=== PATIENT | male | born 1940 | race Caucasian/White ===

== ENCOUNTER 2020-07-19 08:06 | Emergency (ER) | payer OTHER, MEDICARE, SELFPAY ==
--- NOTE | ~2020-07-19 | XR_ITS ---
EXAMINATION: XR chest 2V EXAM DATE: 07/19/2020 09:08 INDICATION: Cough and runny nose. TECHNIQUE: Frontal and lateral projections of the chest obtained and reviewed. There is no prior diane dy for comparison. FINDINGS: Sternotomy wires are present without findings to suggest sternal dehiscence. Moderate hype rinflation. The lungs are clear. There are no pleural effusions. The cardiomediastinal silhouette i s within normal limits. There is no pneumothorax suspected. Mild to moderate upper thoracic levosco liosis, lower thoracic dextroscoliosis. IMPRESSION: 1. No acute cardiopulmonary findings. 2. Hyperinflation. Reviewed, dictated and finalized at location B. EDUCATION TEACHER
[2020-07-19 08:27] VITALS: BP 133/87; PULSE 84; RESP 18; TEMP 36.2; O2SAT 97
--- NOTE | 2020-07-19 09:42 | ED.URI ---
HPI - URI/Sore Throat General Chief Complaint: Upper Respiratory Infection Stated Complaint: Cough,Congestion Time Seen by Provider: 07/19/20 08:30 Source: patient and RN notes reviewed Mode of arrival: ambulatory Limitations: no limitations History of Present Illness HPI Narrative: Patient presents today with a 4-day history of rhinorrhea, nasal congestion and sinus pressure, productive cough that is worse at night. Denies fever, chills, body aches, shortness of breath, loss of taste or smell. 3 other members of his household are also ill. He is a former smoker and quit many years ago. Denies any history of asthma or COPD. He has been taking daytime and nighttime medications without relief. MD elicited complaint: cough, rhinorrhea and nasal congestion Related Data Home Medications Medication Instructions Recorded Confirmed atorvastatin 05/10/19 potassium chloride meq 05/10/19 aspirin PO 07/19/20 Allergies Allergy/AdvReac Type Severity Reaction Status Date / Time amiodarone Allergy Mild Rash Verified 05/10/19 17:59 Review of Systems Review of Systems: Narrative: CONSTITUTIONAL: Denies body aches, fever, chills, or sweats. EYES: Denies visual changes, redness, or discharge. ENT: Denies sore throat, or otalgia.+ Rhinorrhea, nasal congestion CARDIOVASCULAR: Denies chest pain, palpitations, or edema. RESPIRATORY: Denies dyspnea. + Productive cough GASTROINTESTINAL: Denies abdominal pain, nausea, vomiting, or diarrhea. GENITOURINARY: Denies dysuria or hematuria. SKIN: Denies rash, itching, or wounds. MUSCULOSKELETAL: Denies back pain, joint pain, or myalgia. NEUROLOGIC: Denies headache, numbness, tingling, or weakness. PSYCH: Denies depression or anxiety. [facility] Past Medical History Medical History Arthritis Atrial fibrillation and flutter Cataracts, bilateral GERD (gastroesophageal reflux disease) HTN (hypertension) Hypercholesterolemia Surgical History Surgical History H/O mitral valve replacement History of appendectomy Hx of tonsillectomy Family History Family History Mother Patient's mother is , Onset Age: 72 Family history unknown, Onset Age: 72 Father Patient's father is , Onset Age: 82 Family history unknown, Onset Age: 73 Social History Social History Smoking status: Never smoker Second hand tobacco smoke exposure: No Smoking end date: 05/24/1966 Alcohol intake: never Gender identity (if verbalized by the patient): Male Comments At time of signature, I have reviewed and agree with nursing past medical, surgical, social and family history unless otherwise noted. Please see nursing chart for further information. There is no relevant family history pertinent to the presenting complaint Exam Narrative: Exam Narrative: GENERAL: Well-appearing, well-nourished, and in no acute distress. Thin HEAD: Normocephalic, atraumatic. EYES: EOMI. No redness or drainage. Conjunctivae normal. ENT: Mucous membranes pink and moist. Nares congested. No rhinorrhea. TMs normal bilaterally. Throat normal. Uvula midline. NECK: Normal AROM. Supple. No lymphadenopathy. CHEST: No respiratory distress. Clear to auscultation. HEART: Regular rate and rhythm. No murmur appreciated. Normal peripheral pulses. EXTREMITIES: Normal range of motion. No edema. SKIN: Warm, dry, no rash. Capillary refill normal. Normal skin turgor. NEURO: No focal deficits. Alert and oriented x3. Gait steady. PSYCH: Normal affect. No signs of depression or anxiety. Course Vital Signs Vital signs: Vital Signs Temperature 97.1 F L 07/19/20 08:27 Pulse Rate 84 07/19/20 08:27 Respiratory Rate 18 07/19/20 08:27 Blood Pressure 133/8
== END 2020-07-19 09:58 | disposition home or self-care (01) ==
PROVIDERS: Emergency Provider Nurse Practitioner
DX: U07.1 COVID-19 (principal); M19.90 Unspecified osteoarthritis, unspecified site; I48.91 Unspecified atrial fibrillation; K21.9 Gastro-esophageal reflux disease without esophagitis; I10 Essential (primary) hypertension; E78.00 Pure hypercholesterolemia, unspecified; H26.9 Unspecified cataract; Z95.2 Presence of prosthetic heart valve; Z87.891 Personal history of nicotine dependence
CPT/HCPCS: 71046; 87426; 99213; C9803; G0463

== ENCOUNTER 2020-11-11 04:39 | Emergency (ER) | payer OTHER, MEDICARE, SELFPAY ==
[2020-11-11 04:43] VITALS: BP 144/96; PULSE 96; RESP 16; TEMP 37.1; O2SAT 98
--- NOTE | 2020-11-11 04:56 | ED.UPPEXIN ---
HPI - Extremity Injury (Upper) General Chief Complaint: Extremity Injury, Upper Stated Complaint: left arm injury Time Seen by Provider: 11/11/20 04:53 History of Present Illness HPI narrative: Patient is an 80-year-old male who presents ER with left upper extremity bruising. Patient reports few days ago he was turning over a box of laminate dia with his left hand when he felt a snap in his upper arm. He did not think much of it because he is not having pain but then developed significant bruising over his biceps. He does not think he has any loss of strength. No numbness or tingling. He is not on any blood thinners outside of an aspirin. Related Data Home Medications Medication Instructions Recorded Confirmed atorvastatin 05/10/19 potassium chloride meq 05/10/19 aspirin PO 07/19/20 Allergies Allergy/AdvReac Type Severity Reaction Status Date / Time amiodarone Allergy Mild Rash Verified 11/11/20 04:40 Review of Systems Musculoskeletal: Musculoskeletal: Denies arthralgias, Denies joint swelling and Denies muscle cramps Comments: Bruising over biceps Neurologic: Denies focal weakness and Denies numbness PMFSH Past Medical History Medical History Arthritis Atrial fibrillation and flutter Cataracts, bilateral GERD (gastroesophageal reflux disease) HTN (hypertension) Hypercholesterolemia Surgical History Surgical History H/O mitral valve replacement History of appendectomy Hx of tonsillectomy Family History Family History Mother Patient's mother is , Onset Age: 72 Family history unknown, Onset Age: 72 Father Patient's father is , Onset Age: 82 Family history unknown, Onset Age: 73 Social History Social History Smoking status: Never smoker Second hand tobacco smoke exposure: No Smoking end date: 05/24/1966 Alcohol intake: never Gender identity (if verbalized by the patient): Male Exam Narrative: Exam Narrative: GENERAL: Well-appearing, well-nourished, and in no acute distress. HEAD: Normocephalic, atraumatic. EXTREMITIES: No tenderness to the left bicep. There is significant contusion over the bicep moving proximally towards her shoulder. Does not cross the elbow. Full range of motion of the shoulder/elbow/wrist and the left upper extremity. SKIN: Warm, dry, no rash. NEURO: Alert and oriented x3. PSYCH: Normal mood and affect. Course Course Emergency Course: Suspect rupture of the long head of the biceps muscle. Will refer to orthopedic surgery given the fact that he still works in maintenance at [employer]. Seems to be particularly active for man his age. Vital Signs Vital signs: Vital Signs Temperature 98.7 F 11/11/20 04:43 Pulse Rate 96 11/11/20 04:43 Respiratory Rate 16 11/11/20 04:43 Blood Pressure 144/96 H 11/11/20 04:43 Pulse Oximetry 98 11/11/20 04:43 Temperature 98.7 F 11/11/20 04:43 Pulse Rate 96 11/11/20 04:43 Respiratory Rate 16 11/11/20 04:43 Blood Pressure 144/96 H 11/11/20 04:43 Pulse Oximetry 98 11/11/20 04:43 Discharge Plan Discharge Clinical Impression: Rupture long head biceps tendon Patient Disposition: Home, Self-Care Condition: Stable Instructions: Repairs of the Biceps and Triceps Tendons (DC), Tendon Rupture (ED) Additional Instructions: You have been referred to orthopedic surgery. Call to schedule an appointment. They will discuss your treatment options. Likely they will do conservative treatment but there are options for surgical repair. Do not lift use anything over 5 pounds with the left upper extremity. Prescriptions: No Action potassium chloride 10 mEq capsule, extended release RF: 0 atorvastatin
[2020-11-11 05:31] VITALS: BP 137/71; PULSE 90; RESP 18; O2SAT 99
== END 2020-11-11 05:33 | disposition home or self-care (01) ==
PROVIDERS: Emergency Provider Emergency Medicine
DX: S46.112A Strain of muscle, fascia and tendon of long head of biceps, left arm, initial encounter (principal); I48.91 Unspecified atrial fibrillation; I48.92 Unspecified atrial flutter; K21.9 Gastro-esophageal reflux disease without esophagitis; I10 Essential (primary) hypertension; E78.00 Pure hypercholesterolemia, unspecified; M19.90 Unspecified osteoarthritis, unspecified site; Z95.2 Presence of prosthetic heart valve; Z79.82 Long term (current) use of aspirin; X50.9XXA Other and unspecified overexertion or strenuous movements or postures, initial encounter
CPT/HCPCS: 99282

== ENCOUNTER 2020-12-11 16:03 | Emergency (ER) | payer OTHER, MEDICARE, SELFPAY ==
[2020-12-11 16:39] VITALS: BP 93/61; PULSE 101; RESP 18; TEMP 37.1; O2SAT 98
--- NOTE | 2020-12-11 16:43 | ED.URI ---
HPI - URI/Sore Throat General Chief Complaint: Upper Respiratory Infection Stated Complaint: sinus infection History of Present Illness HPI Narrative: This is a 80-year-old male that comes in complaining of a sinus infection patient states that he has been positive this year for Covid. Patient states that he is also received his vaccination. Patient says that he has nasal drainage and a cough. Patient states that his daughter last week tested positive for Covid. And his grandson tested positive Wednesday. Related Data Home Medications Medication Instructions Recorded Confirmed atorvastatin 05/10/19 potassium chloride meq 05/10/19 aspirin PO 07/19/20 meloxicam 12/11/20 Allergies Allergy/AdvReac Type Severity Reaction Status Date / Time amiodarone Allergy Mild Rash Verified 11/11/20 04:40 Review of Systems Review of Systems: Narrative: CONSTITUTIONAL: Denies fever, chills, or sweats. EYES: Denies visual changes, redness, or discharge. ENT: Reports he has had for rhinorrhea, congestion, sore throat, or otalgia. CARDIOVASCULAR:Denies chest pain, palpitations, or edema. RESPIRATORY: Reports cough or dyspnea. GASTROINTESTINAL: Denies abdominal pain, nausea, vomiting, or diarrhea. GENITOURINARY: Denies dysuria or hematuria. SKIN:[Denies rash or itching. MUSCULOSKELETAL:Denies back pain, joint pain, or myalgia. NEUROLOGIC: Denies headache, numbness, or weakness. PSYCHIATRIC:Denies anxiety or depression PMFSH Past Medical History Medical History Arthritis Atrial fibrillation and flutter Cataracts, bilateral GERD (gastroesophageal reflux disease) HTN (hypertension) Hypercholesterolemia Surgical History Surgical History H/O mitral valve replacement History of appendectomy Hx of tonsillectomy Family History Family History Mother Patient's mother is , Onset Age: 72 Family history unknown, Onset Age: 72 Father Patient's father is , Onset Age: 82 Family history unknown, Onset Age: 73 Social History Social History Smoking status: Never smoker Second hand tobacco smoke exposure: No Smoking end date: 05/24/1966 Alcohol intake: never Gender identity (if verbalized by the patient): Male Comments At time as signature, I have reviewed and agree with nursing past medical, social, surgical and family history. Please see nursing chart for further information. There is no relevant family history pertinent to the presenting complaint. Exam Narrative: Exam Narrative: GENERAL:Well-appearing, well-nourished, and in no acute distress. HEAD:Normocephalic, atraumatic. EYES: PERRLA and EOMI. ENT: Nares clear, no rhinorrhea Mucous membranes moist. Pharyngeal erythema tm clear fluid bulgin NECK: Supple. CHEST: Clear to auscultation. No respiratory distress. HEART: Regular rate and rhythm. No murmur heard. Normal peripheral pulses. ABDOMEN: Soft, nontender, nondistended, normal active bowel sounds. EXTREMITIES: Normal range of motion. No edema. SKIN: Warm, dry, no rash. NEURO: No focal deficits. Alert and oriented x 3 Course FIRST GRADE TEACHER/PA Physician Supervision Covid-19 Positive Vital Signs Vital signs: Vital Signs Temperature 98.7 F 12/11/20 16:39 Pulse Rate 101 H 12/11/20 16:39 Respiratory Rate 18 12/11/20 16:39 Blood Pressure 93/61 L 12/11/20 16:39 Pulse Oximetry 98 12/11/20 16:39 Temperature 98.7 F 12/11/20 16:39 Pulse Rate 101 H 12/11/20 16:39 Respiratory Rate 18 12/11/20 16:39 Blood Pressure 93/61 L 12/11/20 16:39 Pulse Oximetry 98 12/11/20 16:39 MDM - URI/Sore Throat Differential Diagnosis Differential diagnosis: Likely upper respiratory infection, otitis media, sinusitis, viral infection and other (COVID 19)
== END 2020-12-11 17:25 | disposition home or self-care (01) ==
PROVIDERS: Emergency Provider Nurse Practitioner Family; PCP Nurse Practitioner
DX: U07.1 COVID-19 (principal); I95.0 Idiopathic hypotension; M19.90 Unspecified osteoarthritis, unspecified site; I48.91 Unspecified atrial fibrillation; H26.9 Unspecified cataract; K21.9 Gastro-esophageal reflux disease without esophagitis; I10 Essential (primary) hypertension; E78.00 Pure hypercholesterolemia, unspecified; Z95.2 Presence of prosthetic heart valve; Z86.16 Personal history of COVID-19
CPT/HCPCS: 87426; 99213; C9803; G0463

== ENCOUNTER 2020-12-16 11:40 | Observation (INO) | payer OTHER, MEDICARE, SELFPAY ==
[2020-12-16] VITALS (36 sets, daily range): BP systolic 104–150; BP diastolic 62–104; PULSE 76–106; RESP 18–22; TEMP 36.7; O2SAT 92–99; BMI 17.2
--- NOTE | ~2020-12-16 | CT_ITS ---
EXAMINATION: CTA chest PE protocol DATE: 12/16/2020 16:25 INDICATION: Shortness of breath. COVID positive. Positive d-dimer. TECHNIQUE: Computed tomography (CT) pulmonary angiogram of the chest was performed with 100 mL Omnipa que-350 intravenous contrast. Additional 3D reconstructions utilizing coronal maximum intensity proje ction (MIP) were performed. The dose-length product was 153.97 mGy-cm. COMPARISON: None FINDINGS: Good contrast opacification of the pulmonary arteries. There is mild streak artifact from dense contr ast in the superior vena cava and right atrium. Moderate scattered respiratory motion artifact which mildly decreases sensitivity in the basilar segmental pulmonary arteries and more prominently in the smaller subsegmental pulmonary arteries with assessment essentially nondiagnostic in the basilar aspe ct of the lower lobes. No pulmonary embolism identified. There are peripheral and lower lung predomin ant patchy groundglass opacities in both lungs most consistent with COVID pneumonia no pleural effusi on or pneumothorax. Mild emphysema suggested although assessment of fine pulmonary parenchymal detail is limited by the respiratory motion. Mild cardiomegaly. Atherosclerotic coronary artery calcificati ons. Postoperative change of prior median sternotomy and mitral valve repair. Thoracic aorta is trupti l in caliber with no dissection. No pathologically enlarged thoracic mild to moderate lower thoracic dextroscoliosis with moderate spondylosis. There is also grade 1 anterolisthesis C6 on C7 and C7 on T 1 also with moderate spondylosis. lymphadenopathy. IMPRESSION: 1. No definitive pulmonary embolism with sensitivity decreased by respiratory motion in the basilar s egmental pulmonary arteries and more significantly in the smaller subsegmental pulmonary arteries at the lung bases. 2. Patchy bilateral peripheral and lower lung predominant groundglass opacities most consistent with COVID pneumonia. 3. Cardiomegaly. Reviewed, dictated and finalized at location A. IMPRESSION: 1. No definitive pulmonary embolism with sensitivity decreased by respiratory m otion in the basilar segmental pulmonary arteries and more significantly in the smaller subsegmental pulmonary arteries at the lung bases. 2. Patchy bilateral peripheral and lower lung predominant groundglass opacities most consistent with COVID pneumonia. 3. Cardiomegaly.
--- NOTE | ~2020-12-16 | XR_ITS ---
EXAMINATION: XR chest 1V portable EXAM DATE: 12/16/2020 13:48 INDICATION: sob, covid + . TECHNIQUE: Portable AP frontal chest x-ray was obtained. Comparison is made to prior examination from 07/19/2020. FINDINGS: Small amount of ill-defined right mid and left lower lung zone airspace disease. No pneumot horax or pleural effusion. Some chronic hyperinflation. Cardiomediastinal silhouette is normal. Marte otomy wires are present without findings to suggest sternal dehiscence. The bones are osteopenic. Th ere are bony degenerative changes. IMPRESSION: Small amount of right mid, left lower lung zone pneumonia. Reviewed, dictated and finalized at location B.
--- NOTE | 2020-12-16 11:57 | ECG_ITS ---
Measurements Intervals [place] Rate: 110 P: IN: 0 QRS: -48 QRSD: 102 T: 61 QT: 351 QTc: 477 Interpretive Statements SINUS TACHYCARDIA INCOMPLETE RIGHT BUNDLE BRANCH BLOCK DELAYED PRECORDIAL R/S TRANSITION ABNORMAL ECG Electronically Signed On 12-16-2020 12:51:29 CDT by Gopi Neal D.O.
[2020-12-16 14:54] LABS: Basophils Percent Auto 0.1 % (0.2-1.2); Hematocrit 39.2 % (42.0-52.0); Hemoglobin 13.9 g/dL (14.0-18.0); Immature Granulocyte Absolute 0.06 K/mm3 (0.00-0.031); Immature Granulocyte Percent A 0.9 % (0-0.5); Lymphocytes Absolute Auto 0.57 K/mm3 (0.9-3.2); Lymphocytes Percent Auto 8.3 % (18.3-44.2); Mean Corpuscular HGB Conc 35.5 g/dl (32-36); Mean Corpuscular Hemoglobin 30.6 pg (26-34); Mean Corpuscular Volume 86.3 fl (80-100); Mean Platelet Volume 9.3 fl (7.4-10.4); Monocytes Absolute Auto 0.9 K/mm3 (0.1-0.6); Monocytes Percent Auto 12.8 % (2.6-8.5); Neutrophils Absolute Auto 5.3 K/mm3 (1.3-6.7); Neutrophils Percent Auto 77.9 % (45.5-73.1); Platelet Count Result 266 k/mm3 (150-375); Red Blood Count 4.54 M/mm3 (4.6-6.20); Red Cell Distribution Width 12.1 % (11.5-14.5); White Blood Count 6.9 K/mm3 (4.5-10.0)
[2020-12-16 15:12] LABS: NT Pro B Type Natriuretic Pept 774 pg/mL (5-100)
[2020-12-16 15:14] LABS: Alanine Aminotransferase 32 U/L (4-50); Albumin Level 4.3 g/dL (3.5-5.1); Alkaline Phosphatase 122 U/L (38-126); Anion Gap 14 mmol/L (8-16); Aspartate Amino Transferase 46 U/L (17-59); Bilirubin,Total 1.4 mg/dL (0.2-1.3); Blood Urea Nitrogen 34 mg/dL (9-20); Calcium 9.3 mg/dL (8.4-10.2); Carbon Dioxide 26 mmol/L (22-30); Chloride 89 mmol/L (98-107); Estimated CRCL calculation 39 ml/min; Estimated Glomerular Filt Rate > 60; Glucose 113 mg/dL (65-110); Lactate Dehydrogenase 917 U/L (313-618); Potassium 3.1 mmol/L (3.4-5.0); Sodium 129 mmol/L (137-145)
--- NOTE | 2020-12-16 15:25 | ED.SOB ---
HPI - SOB/Dyspnea General Chief Complaint: Shortness of Breath/Dyspnea <Dena Flores PA-C - Last Filed: 12/16/20 17:36> Stated Complaint: short of breath <Dena Flores PA-C - Last Filed: 12/16/20 17:36> Time Seen by Provider: 12/16/20 13:00 <Dena Flores PA-C - Last Filed: 12/16/20 17:36> Source: patient <SAQIB Slater Last Filed: 12/16/20 17:36> Mode of arrival: ambulatory <SAQIB Slater Last Filed: 12/16/20 17:36> Limitations: no limitations <SAQIB Slater Last Filed: 12/16/20 17:36> History of Present Illness HPI Narrative: This is a 80 year old male that presents to the ER for shortness of breath. Reports he was diagnosed with COVID on 12/11. Reports since he has had ongoing shortness of breath with exertion. Also reports cough, congestion. Denies fever, chest pain, or lower extremity edema. <SAQIB Slater Last Filed: 12/16/20 17:36> Related Data Home Medications: Home Medications Medication Instructions Recorded Confirmed atorvastatin 05/10/19 potassium chloride meq 05/10/19 aspirin PO 07/19/20 meloxicam 12/11/20 <Dena Flores PA-C - Last Filed: 12/16/20 17:36> Allergies/Adverse Reactions: Allergies Allergy/AdvReac Type Severity Reaction Status Date / Time amiodarone Allergy Mild Rash Verified 12/16/20 13:08 <SAQIB Slater Last Filed: 12/16/20 17:36> Review of Systems Review of Systems: Narrative: CONSTITUTIONAL: Denies fever ENT: Reports congestion CARDIOVASCULAR: Denies chest pain RESPIRATORY: Reports cough and dyspnea. <SAQIB Slater Last Filed: 12/16/20 17:36> All systems reviewed & are unremarkable except as noted in HPI and below <SAQIB Slater Last Filed: 12/16/20 17:36> PMFSH Past Medical History Medical History: Medical History Arthritis Atrial fibrillation and flutter Cataracts, bilateral GERD (gastroesophageal reflux disease) HTN (hypertension) Hypercholesterolemia <Dena Flores PA-C - Last Filed: 12/16/20 17:36> Surgical History Surgical History: Surgical History H/O mitral valve replacement History of appendectomy Hx of tonsillectomy <Dena Flores PA-C - Last Filed: 12/16/20 17:36> Family History Family History: Family History Mother Patient's mother is , Onset Age: 72 Family history unknown, Onset Age: 72 Father Patient's father is , Onset Age: 82 Family history unknown, Onset Age: 73 <Dena Flores PA-C - Last Filed: 12/16/20 17:36> Social History Social History: Social History Smoking status: Never smoker Second hand tobacco smoke exposure: No Smoking end date: 05/24/1966 Alcohol intake: never Gender identity (if verbalized by the patient): Male <SAQIB Slater Last Filed: 12/16/20 17:36> Exam Narrative: Exam Narrative: GENERAL: Elderly, well-nourished, and in no acute distress. HEAD: Normocephalic, atraumatic. EYES: EOMI. ENT: Nares clear, no rhinorrhea or epistaxis. Mucous membranes moist. Oropharynx without tonsillar hypertrophy exudate or other lesions. Bilateral TMs pearly ramos non-bulging NECK: Supple. No adenopathy or masses. CHEST: Clear to auscultation. No respiratory distress. No wheezes rales or rhonchi HEART: Regular rate and rhythm. No murmur heard. Normal peripheral pulses. ABDOMEN: Soft, nontender, nondistended, normal active bowel sounds. EXTREMITIES: Normal range of motion. No edema. SKIN: Warm, dry, no rash. NEURO: No focal deficits. Alert and oriented x3. 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
[2020-12-16] MEDS: POTASSIUM CHLORIDE 20 MEQ PACKET (FOR LIQUID) 40 MEQ PO (15:39)
[2020-12-16 15:55] LABS: INR 0.9
[2020-12-16 15:58] LABS: D Dimer 1.03 ug/mL (<0.48)
[2020-12-16 16:34] LABS: Procalcitonin 0.1 ng/mL
--- NOTE | 2020-12-16 19:52 | ADMGEN ---
This patient, Antoni Cooley, was admitted to 3 Med Surg Room 301-01. Patient/family oriented to hospital policies and general routines including ID bracelet, bed and alarms, visiting hours, pain management, procedures, bathroom and other care routines, personal items, smoking policy, room service/diet, and visiting hours. Information on how to activate the Rapid Response Team has been discussed. Patient/Family are encouraged to report perceived risks to care and to ask questions if they do not understand what they are told or what they should do.
--- NOTE | 2020-12-16 20:42 | PM.IMHP ---
H&P: HPI History of Present Illness Date/Time: 12/16/20 20:42 Chief Complaint: Shortness of breath Narrative: this is an 80-year-old male with past medical history significant for mitral valve replacement, hypertension, degenerative joint disease, geared, bilateral cataract. Patient was recently diagnosed with COVID-19 back on December 11. Yesterday he went to the urgent care due to worsening shortness of breath mainly with activity he was sent home with Z-Get but decided to come to the emergency room after he noticed no improvement with dry cough muscle aches and pains. He denies any rigors any chills any nausea vomiting or diarrhea or abdominal pain no leg swelling no syncope or near syncope no chest pain no PND no orthopnea. preliminary workup was significant for chest x-ray with infiltrates a CTA was negative for pulmonary embolism ground-glass opacity infiltrates were found bilaterally BMP was significant for a slightly decrease of sodium 129 potassium 3.1 chloride 89. Review of Systems Review of Systems: Narrative: worsening shortness of breath muscle aches and pain Constitutional: Constitutional: Denies chills, Denies fever(s) and Reports malaise Eyes: Eyes: Denies change in vision ENT: Denies dysphagia, Denies nasal congestion, Denies nasal discharge, Denies nasal obstruction, Denies odynophagia and Denies sore throat Cardiovascular: Cardiovascular: Denies chest pain with activity, Denies irregular heart rhythm, Denies radiating jaw, neck or arm pain and Denies palpitations Respiratory: Respiratory: Reports cough and Reports dyspnea Gastrointestinal: Gastrointestinal: Denies abdominal pain, Denies heartburn, Denies diarrhea, Denies nausea and Denies vomiting Genitourinary: Genitourinary: Reports no additional male genitourinary complaints Musculoskeletal: Musculoskeletal: Reports myalgias Integumentary/Breasts: Skin/Breast: Reports system reviewed and no additional complaints, except as docu Neurologic: Reports system reviewed and no additional complaints, except as documented Psychiatric: Psychiatric: Reports no additional psychiatric complaints Endocrine: Endocrine: Reports no additional endocrine complaints Hematologic/Lymphatic: Hematologic/Lymphatic: Reports no additional hematologic/lymphatic complaints Allergic/Immunologic: Allergic/Immunologic: Reports no additional allergic/immunologic complaints PMFSH Past Medical History Medical History (Updated 12/16/20 @ 20:59 by Stevan Arriola MD) Arthritis Atrial fibrillation and flutter Cataracts, bilateral GERD (gastroesophageal reflux disease) HTN (hypertension) Hypercholesterolemia Surgical History Surgical History (Updated 12/16/20 @ 20:59 by Stevan Arriola MD) H/O mitral valve replacement History of appendectomy Hx of tonsillectomy Family History Family History Mother Patient's mother is , Onset Age: 72 Family history unknown, Onset Age: 72 Father Patient's father is , Onset Age: 82 Family history unknown, Onset Age: 73 Social History Social History Smoking status: Never smoker Second hand tobacco smoke exposure: No Smoking end date: 05/24/1966 Alcohol intake: never Substance use: never Gender identity (if verbalized by the patient): Male Spiritual care concerns: No Meds Home Medications and Allergies Home Medications Medication Instructions Recorded Confirmed Type atorvastatin 20 mg PO DAILY 05/10/19 12/16/20 History potassium chloride 20 meq PO DAILY 05/10/19 12/16/20 History hydrochlorothiazide 25 mg tablet 25 mg PO DAILY #90 tablet 05/18/19 12/16/20 Rx nifedipine 30 mg tablet,extended 30 mg PO DAILY #90 tablet 05/18/19 12/16/20 Rx release aspirin 81 mg PO DAILY 07/19/20 12/16/20 History meloxicam 7.5 mg PO DAILY 12/11/20 12/16/20 History Allergi
[2020-12-16] MEDS: POTASSIUM CHLORIDE 20 MEQ TABLET 40 MEQ PO (22:18)
[2020-12-17] VITALS (7 sets, daily range): BP systolic 117–157; BP diastolic 66–91; PULSE 73–91; RESP 18–20; TEMP 36.2–37.1; O2SAT 95–98; BMI 17.2
--- NOTE | 2020-12-17 | ECHO_ITS ---
Patient Info Name: Antoni Cooley Age: 80 years : 1940 Gender: Male Ht: 68 in Wt: 112 lbs BSA: 1.55 m2 HR: 87 bpm BP: 146 / 83 mmHg Heart Rhythm: Sinus Rhythm Exam Date: 12/17/2020 11:17 AM Exam Location: [facility] Patient Status: Outpatient Admit Date: 12/16/2020 Staff Ordering Physician: Cholo Torres Licensed Mental Health Counselor: Jerrica Cabrera RDCS Attending Provider: Sid Miller MD Referring Physician: Brian SANTIAGO; Exam Type: CA echo doppler color flow Study Info Indications - FLUID OVERLOAD Complete two-dimentional, color flow and Doppler transthoracic echocardiogram is performed with agitated saline and with contrast to opacify the left ventricle and to improve the delineation of the left ventricle endocardial borders. Summary 1. Normal left ventricular size with moderate concentric hypertrophy. Overall good left ventricular systolic function with an ejection fraction 60-65%. No segmental wall motion abnormalities. Grade 2 diastolic dysfunction is present. The global longitudinal strain is mildly diminished at-17% suggesting a degree of systolic dysfunction. 2. There is mild tricuspid valve regurgitation. 3. There is mild to moderate aortic valve regurgitation. 4. Moderately calcified aortic valve with no significant stenosis. 5. Severe mitral annular calcification versus mitral valve replacement with prominent annulus. No significant mitral stenosis or regurgitation. 6. Mild pulmonary hypertension, estimated pulmonary arterial systolic pressure is 35 mmHg. 7. Normal sinus rhythm. Left Ventricle Left ventricular chamber dimension is normal. Left ventricular systolic function is normal, estimated at 60-65%. There is moderately increased left ventricular wall thickness. Left ventricular septal wall motion is normal. The left ventricular diastolic function is grade II diastolic dysfunction. E/e' Empty is mildly elevated. Global longitudinal strain is mildly elevated at 17 %. Right Ventricle Right ventricular chamber dimension is normal. Right ventricular systolic function is normal. Left Atria Left atrial chamber dimension is moderately enlarged. Right Atria Right atrial chamber dimension is normal. Aortic Valve The aortic valve is trileaflet. There is no aortic valve sclerosis. There is no aortic valve stenosis. There is mild to moderate aortic valve regurgitation. There is moderate aortic valve calcification. Pulmonic Valve The pulmonic valve is normal. There is no pulmonic valve stenosis. There is trace pulmonic regurgitation. Mitral Valve The mitral valve has calcified annulus. There is no mitral valve stenosis. There is no mitral valve regurgitation. There is no mitral valve calcification. The mitral valve annulus is severely calcified. Tricuspid Valve The tricuspid valve leaflets are normal. There is no significant tricuspid valve stenosis. There is mild tricuspid valve regurgitation. Mild pulmonary hypertension, estimated pulmonary arterial systolic pressure is 35 mmHg. Pericardium/Pleural The pericardium appears normal. There is no pericardial effusion. Inferior Vena Cava Normal inferior vena cava with >50% collapse upon inspiration consistent with Empty right atrial pressure, 10 mmHg. Aorta The aortic root size at the sinus of Valsalva is normal. The prox ascending aorta size is normal. Left Ventricular Outflow Tract
[2020-12-17] MEDS: FUROSEMIDE INJ 40 MG/4 ML VIAL IV PUSH (08:42)
[2020-12-17] MEDS: MAGNESIUM SULF 2 GM/WATER 50ML 2 GM/50 ML BAG IVPB (08:42)
[2020-12-17] MEDS: ATORVASTATIN 20 MG TABLET PO (08:43)
[2020-12-17] MEDS: NIFEdipine 30 MG TAB.ER.24 PO (08:43)
--- NOTE | 2020-12-17 09:45 | P.PNIM_ITS ---
Progress Note: A&P Assessment and Plan (1) 2019 novel coronavirus-infected pneumonia (NCIP): Code(s): U07.1 - COVID-19; J12.82 - Pneumonia due to coronavirus disease 2018 Status: Acute Assessment and Plan: * positive COVID test 12/11/2020 * CTA shows current list of PCPs consistent with COVID, cardiomegaly, no PE noted * chest x-ray shows small amount of right mid lower lung zone pneumonia with hyperinflation * Rocephin 1gm Q24hr and Zithromax 500 mg q.day for extended bacteria and atypical coverage * dexamethasone 6 mg IV push daily * convalescent plasma will hold for now since the patient is 98% on room air * hold off on Remdesivir for now * supplemental oxygen if needed to maintain a sat of 92 or greater * ferritin 476, LDH 917, D-dimer 1.03 * Pep therapy and IS (2) Acute hyponatremia: Code(s): E87.1 - Hypo-osmolality and hyponatremia Status: Acute Assessment and Plan: * Sodium was 129 * got 250ml of NS * BNP 774 * Echo ordered * 40mg IV lasix x1 * Trend fluid status * Labs in the am (3) Acute hypokalemia: Code(s): E87.6 - Hypokalemia Status: Acute Assessment and Plan: * Potassium 3.1 * could be chronic since patient is on p.o. potassium 20 mEq daily * Replaced with 40mcg PO x 1 * Trend potassium * Labs in the am * Replace as needed (4) Atrial fibrillation and flutter: Code(s): I48.91 - Unspecified atrial fibrillation; I48.92 - Unspecified atrial flutter Status: Acute Assessment and Plan: * Sinus in the EKG * History of arrhythmia * continue home aspirin 81 mg p.o. daily (5) HTN (hypertension): Code(s): I10 - Essential (primary) hypertension Status: Acute Assessment and Plan: * Current Blood pressure 146/83 * Will restart home hydrochlorothiazide 25 mg p.o. daily, and nifedipine 30 mg p.o. daily * trend blood pressure * adjust medications as needed (6) GERD (gastroesophageal reflux disease): Code(s): K21.9 - Gastro-esophageal reflux disease without esophagitis Status: Acute Assessment and Plan: * patient is eating with no appetite issues * will add PPI if needed (7) Hyperlipidemia: Code(s): E78.5 - Hyperlipidemia, unspecified Status: Acute Assessment and Plan: * continue atorvastatin 20 mg p.o. daily * consider checking lipid panel in the morning Time Spent With Patient Time with patient: 25 - 35 minutes Subjective Date/time seen: 12/17/20 08:30 Interval history: Patient is an 80-year-old male with past medical history for mitral valve replacement, hypertension, degenerative joint disease, bilateral cataracts who presented the ED on 12/16/2020 for worsening shortness of breath. On December 11 patient was diagnosed with COVID and was sent home with azithromycin however he had noticed no improvement over the last couple days came back to the ED. Patient stated that it has been hard to get up to walk to the bathroom. he gets short of breath with any activity. Patient stated that it got worse at home and was unable to get up and down the stairs at his house. He also states that he has a cough that is nonproductive. He does not have any chest pain body aches, fevers, sweats, chills, diarrhea, nausea, vomiting, numbness and tingling, headache, urinary dysfunction. It is noted that his labs are little off his sodium was 129 his potassium was 3.1 magnesium
--- NOTE | 2020-12-17 09:45 | PM.IMPN ---
Progress Note: A&P Assessment and Plan (1) 2019 novel coronavirus-infected pneumonia (NCIP): Code(s): U07.1 - COVID-19; J12.82 - Pneumonia due to coronavirus disease 2018 Status: Acute Assessment and Plan: positive COVID test 12/11/2020 CTA shows current list of PCPs consistent with COVID, cardiomegaly, no PE noted chest x-ray shows small amount of right mid lower lung zone pneumonia with hyperinflation Rocephin 1gm Q24hr and Zithromax 500 mg q.day for extended bacteria and atypical coverage dexamethasone 6 mg IV push daily convalescent plasma will hold for now since the patient is 98% on room air hold off on Remdesivir for now supplemental oxygen if needed to maintain a sat of 92 or greater ferritin 476, LDH 917, D-dimer 1.03 Pep therapy and IS (2) Acute hyponatremia: Code(s): E87.1 - Hypo-osmolality and hyponatremia Status: Acute Assessment and Plan: Sodium was 129 got 250ml of NS BNP 774 Echo ordered 40mg IV lasix x1 Trend fluid status Labs in the am (3) Acute hypokalemia: Code(s): E87.6 - Hypokalemia Status: Acute Assessment and Plan: Potassium 3.1 could be chronic since patient is on p.o. potassium 20 mEq daily Replaced with 40mcg PO x 1 Trend potassium Labs in the am Replace as needed (4) Atrial fibrillation and flutter: Code(s): I48.91 - Unspecified atrial fibrillation; I48.92 - Unspecified atrial flutter Status: Acute Assessment and Plan: Sinus in the EKG History of arrhythmia continue home aspirin 81 mg p.o. daily (5) HTN (hypertension): Code(s): I10 - Essential (primary) hypertension Status: Acute Assessment and Plan: Current Blood pressure 146/83 Will restart home hydrochlorothiazide 25 mg p.o. daily, and nifedipine 30 mg p.o. daily trend blood pressure adjust medications as needed (6) GERD (gastroesophageal reflux disease): Code(s): K21.9 - Gastro-esophageal reflux disease without esophagitis Status: Acute Assessment and Plan: patient is eating with no appetite issues will add PPI if needed (7) Hyperlipidemia: Code(s): E78.5 - Hyperlipidemia, unspecified Status: Acute Assessment and Plan: continue atorvastatin 20 mg p.o. daily consider checking lipid panel in the morning Time Spent With Patient Time with patient: 25 - 35 minutes Subjective Date/time seen: 12/17/20 08:30 Interval history: Patient is an 80-year-old male with past medical history for mitral valve replacement, hypertension, degenerative joint disease, bilateral cataracts who presented the ED on 12/16/2020 for worsening shortness of breath. On December 11 patient was diagnosed with COVID and was sent home with azithromycin however he had noticed no improvement over the last couple days came back to the ED. Patient stated that it has been hard to get up to walk to the bathroom. he gets short of breath with any activity. Patient stated that it got worse at home and was unable to get up and down the stairs at his house. He also states that he has a cough that is nonproductive. He does not have any chest pain body aches, fevers, sweats, chills, diarrhea, nausea, vomiting, numbness and tingling, headache, urinary dysfunction. It is noted that his labs are little off his sodium was 129 his potassium was 3.1 magnesium was 1.8. His renal function was fine at 34/1 BNP is a little elevated at 774 unknown swelling noted on exam. Review of Systems Review of Systems: All systems reviewed & are unremarkable except as noted in HPI and below Exam Const: General: cooperative, healthy appearing, comfortable, no acute distress, well developed, alert, awake and other ( well-appearing) Nutritional Appearance: malnourished, thin and underweight Orientation/consciousness: oriented to person, oriented to place, oriented
[2020-12-17 11:40] LABS: Alanine Aminotransferase 26 U/L (4-50); Albumin Level 4.1 g/dL (3.5-5.1); Alkaline Phosphatase 118 U/L (38-126); Anion Gap 13 mmol/L (8-16); Aspartate Amino Transferase 36 U/L (17-59); Bilirubin,Total 1.2 mg/dL (0.2-1.3); Blood Urea Nitrogen 23 mg/dL (9-20); Calcium 9.1 mg/dL (8.4-10.2); Carbon Dioxide 26 mmol/L (22-30); Chloride 91 mmol/L (98-107); Estimated CRCL calculation 51 ml/min; Estimated Glomerular Filt Rate > 60; Glucose 110 mg/dL (65-110); Sodium 130 mmol/L (137-145)
[2020-12-17] MEDS: ENOXAPARIN 40 MG/0.4 ML SYRINGE SUB-Q (11:59)
[2020-12-17] MEDS: ALBUTEROL SULFATE (*SP) INHALER 2 PUFF INHALATION (12:06)
--- NOTE | 2020-12-17 14:53 | PCNSR ---
On 12/17/20, the student, Barbara Steiner, provided care and [facility]. I have reviewed the student's documentation and agree with the findings.
--- NOTE | 2020-12-17 16:03 | PCRTNOTE ---
Window of time for administration has passed. See next scheduled administration.
[2020-12-18 03:50] VITALS: BP 149/77; PULSE 86; RESP 20; TEMP 36.7; O2SAT 97
[2020-12-18] MEDS: ALBUTEROL SULFATE (*SP) INHALER 2 PUFF INHALATION ×3 (07:52→16:10)
[2020-12-18 07:59] VITALS: PULSE 94; O2SAT 95
[2020-12-18 08:00] VITALS: BP 124/76; PULSE 86; RESP 20; TEMP 36.9; O2SAT 96; O2SAT 97
[2020-12-18 09:09] LABS: Hematocrit 38.4 % (42.0-52.0); Hemoglobin 13.4 g/dL (14.0-18.0); Mean Corpuscular HGB Conc 34.9 g/dl (32-36); Mean Corpuscular Hemoglobin 30.3 pg (26-34); Mean Corpuscular Volume 86.9 fl (80-100); Mean Platelet Volume 9.3 fl (7.4-10.4); Platelet Count Result 336 k/mm3 (150-375); Red Blood Count 4.42 M/mm3 (4.6-6.20); Red Cell Distribution Width 12.1 % (11.5-14.5); White Blood Count 12.2 K/mm3 (4.5-10.0)
[2020-12-18] MEDS: ATORVASTATIN 20 MG TABLET PO (09:23)
[2020-12-18] MEDS: NIFEdipine 30 MG TAB.ER.24 PO (09:23)
[2020-12-18] MEDS: ENOXAPARIN 40 MG/0.4 ML SYRINGE SUB-Q (09:23)
[2020-12-18 09:41] LABS: Alanine Aminotransferase 28 U/L (4-50); Albumin Level 3.8 g/dL (3.5-5.1); Alkaline Phosphatase 115 U/L (38-126); Anion Gap 9 mmol/L (8-16); Aspartate Amino Transferase 32 U/L (17-59); Blood Urea Nitrogen 24 mg/dL (9-20); Carbon Dioxide 30 mmol/L (22-30); Chloride 92 mmol/L (98-107); Estimated CRCL calculation 40 ml/min; Estimated Glomerular Filt Rate > 60; Glucose 104 mg/dL (65-110); Potassium 3.3 mmol/L (3.4-5.0); Sodium 131 mmol/L (137-145)
[2020-12-18 12:00] VITALS: BP 123/66; PULSE 85; RESP 20; TEMP 37; O2SAT 97
--- NOTE | 2020-12-18 13:00 | P.DS_ITS ---
DS: Admitting Diagnosis Admitting Diagnosis COVID-19 pneumonia DS: Discharge Diagnosis Discharge Diagnosis (1) 2019 novel coronavirus-infected pneumonia (NCIP): Code(s): U07.1 - COVID-19; J12.82 - Pneumonia due to coronavirus disease 2019 Status: Acute Assessment and Plan: * positive COVID test 12/11/2020 * CTA shows current list of PCPs consistent with COVID, cardiomegaly, no PE noted * chest x-ray shows small amount of right mid lower lung zone pneumonia with hyperinflation * Rocephin 1gm Q24hr and Zithromax 500 mg q.day for extended bacteria and atypical coverage * dexamethasone 6 mg IV push daily * convalescent plasma will hold for now since the patient is 98% on room air * hold off on Remdesivir for now * supplemental oxygen if needed to maintain a sat of 92 or greater * ferritin 476, LDH 917, D-dimer 1.03 * Pep therapy and IS (2) Acute hyponatremia: Code(s): E87.1 - Hypo-osmolality and hyponatremia Status: Acute Assessment and Plan: * Sodium was 129 * got 250ml of NS * BNP 774 * Echo ordered * 40mg IV lasix x1 * Trend fluid status * Labs in the am (3) Acute hypokalemia: Code(s): E87.6 - Hypokalemia Status: Acute Assessment and Plan: * Potassium 3.3 * could be chronic since patient is on p.o. potassium 20 mEq daily * Replaced with 40mcg PO x 1 * Trend potassium * Labs in the am * Replace as needed (4) Atrial fibrillation and flutter: Code(s): I48.91 - Unspecified atrial fibrillation; I48.92 - Unspecified atrial flutter Status: Acute Assessment and Plan: * Sinus in the EKG * History of arrhythmia * continue home aspirin 81 mg p.o. daily (5) HTN (hypertension): Code(s): I10 - Essential (primary) hypertension Status: Acute Assessment and Plan: * Current Blood pressure 123/66 * Will restart home hydrochlorothiazide 25 mg p.o. daily, and nifedipine 30 mg p.o. daily * trend blood pressure * adjust medications as needed (6) GERD (gastroesophageal reflux disease): Code(s): K21.9 - Gastro-esophageal reflux disease without esophagitis Status: Acute Assessment and Plan: * patient is eating with no appetite issues * will add PPI if needed (7) Hyperlipidemia: Code(s): E78.5 - Hyperlipidemia, unspecified Status: Acute Assessment and Plan: * continue atorvastatin 20 mg p.o. daily * consider checking lipid panel in the morning DS: Summary Hospital Course Hospital Course: Patient is an 80-year-old male with past medical history for mitral valve replacement, hypertension, degenerative joint disease, bilateral cataracts who presented the ED on 12/16/2020 for worsening shortness of breath. patient was diagnosed on December 11 with COVID-19. Since admission patient was complaining of being short of breath with activity like walking up and down the stairs. Patient stated that he is better today with shortness of breath and he is recovering fine from that. Patient was also treated for possible bacterial pneumonia with a Zithromax 7 and ceftriaxone. He was also started on steroids dexamethasone. Patient was also noted to have a low potassium with admission being 3.1. Patient was supplemented with 40 p.o. daily and potassium has remained stable. Sodium was also low when he arrived at 1:29 a.m. today is 131 however his BNP was a little elevated at 774. Patient was treated wi
--- NOTE | 2020-12-18 13:00 | PM.DS ---
DS: Admitting Diagnosis Admitting Diagnosis COVID-19 pneumonia DS: Discharge Diagnosis Discharge Diagnosis (1) 2019 novel coronavirus-infected pneumonia (NCIP): Code(s): U07.1 - COVID-19; J12.82 - Pneumonia due to coronavirus disease 2019 Status: Acute Assessment and Plan: positive COVID test 12/11/2020 CTA shows current list of PCPs consistent with COVID, cardiomegaly, no PE noted chest x-ray shows small amount of right mid lower lung zone pneumonia with hyperinflation Rocephin 1gm Q24hr and Zithromax 500 mg q.day for extended bacteria and atypical coverage dexamethasone 6 mg IV push daily convalescent plasma will hold for now since the patient is 98% on room air hold off on Remdesivir for now supplemental oxygen if needed to maintain a sat of 92 or greater ferritin 476, LDH 917, D-dimer 1.03 Pep therapy and IS (2) Acute hyponatremia: Code(s): E87.1 - Hypo-osmolality and hyponatremia Status: Acute Assessment and Plan: Sodium was 129 got 250ml of NS BNP 774 Echo ordered 40mg IV lasix x1 Trend fluid status Labs in the am (3) Acute hypokalemia: Code(s): E87.6 - Hypokalemia Status: Acute Assessment and Plan: Potassium 3.3 could be chronic since patient is on p.o. potassium 20 mEq daily Replaced with 40mcg PO x 1 Trend potassium Labs in the am Replace as needed (4) Atrial fibrillation and flutter: Code(s): I48.91 - Unspecified atrial fibrillation; I48.92 - Unspecified atrial flutter Status: Acute Assessment and Plan: Sinus in the EKG History of arrhythmia continue home aspirin 81 mg p.o. daily (5) HTN (hypertension): Code(s): I10 - Essential (primary) hypertension Status: Acute Assessment and Plan: Current Blood pressure 123/66 Will restart home hydrochlorothiazide 25 mg p.o. daily, and nifedipine 30 mg p.o. daily trend blood pressure adjust medications as needed (6) GERD (gastroesophageal reflux disease): Code(s): K21.9 - Gastro-esophageal reflux disease without esophagitis Status: Acute Assessment and Plan: patient is eating with no appetite issues will add PPI if needed (7) Hyperlipidemia: Code(s): E78.5 - Hyperlipidemia, unspecified Status: Acute Assessment and Plan: continue atorvastatin 20 mg p.o. daily consider checking lipid panel in the morning DS: Summary Hospital Course Hospital Course: Patient is an 80-year-old male with past medical history for mitral valve replacement, hypertension, degenerative joint disease, bilateral cataracts who presented the ED on 12/16/2020 for worsening shortness of breath. patient was diagnosed on December 11 with COVID-19. Since admission patient was complaining of being short of breath with activity like walking up and down the stairs. Patient stated that he is better today with shortness of breath and he is recovering fine from that. Patient was also treated for possible bacterial pneumonia with a Zithromax 7 and ceftriaxone. He was also started on steroids dexamethasone. Patient was also noted to have a low potassium with admission being 3.1. Patient was supplemented with 40 p.o. daily and potassium has remained stable. Sodium was also low when he arrived at 1:29 a.m. today is 131 however his BNP was a little elevated at 774. Patient was treated with 40 mg of Lasix x1. Patient was also noted to have elevated D-dimer a CTA was performed that showed he had no pulmonary in full ism but did have ground-glass opacities most consistent with COVID pneumonia. Patient also had an echo Doppler that showed an EF of 60-65% with a grade 2 diastolic dysfunction. Patient's white blood cell count upon arrival was 6.9 and is elevated today at 12.2 however that could be due to the use of steroids. H&H has remained stable and was 13.4/38.4 today. Today agustín
[2020-12-18] MEDS: POTASSIUM CHLORIDE 20 MEQ TABLET 40 MEQ PO (13:16)
== END 2020-12-18 16:20 | disposition home or self-care (01) ==
LOC: ANHED 17:10 → ANH3MEDSUR 12-17 10:51
PROVIDERS: Nurse Practitioner; Physician Assistant; Admitting Provider Internal Medicine Critical Care Medicine; Emergency Provider Emergency Medicine; PCP Nurse Practitioner; Visit Provider Internal Medicine
DX: U07.1 COVID-19 (principal); J12.82 Pneumonia due to coronavirus disease 2019; E87.1 Hypo-osmolality and hyponatremia; E87.6 Hypokalemia; E78.5 Hyperlipidemia, unspecified; I48.91 Unspecified atrial fibrillation; I10 Essential (primary) hypertension; I48.92 Unspecified atrial flutter; K21.9 Gastro-esophageal reflux disease without esophagitis; M19.90 Unspecified osteoarthritis, unspecified site; R06.02 Shortness of breath; Z95.2 Presence of prosthetic heart valve; Z79.82 Long term (current) use of aspirin; Z95.3 Presence of xenogenic heart valve
CPT/HCPCS: 36415; 71045; 71275; 80053; 82728; 83615; 83880; 84145; 85025; 85027; 85380; 85610; 85730; 86900; 86901; 93005; 93306; 94640; 96365; 96366; 96367; 96372; 96375; 96376; 99285; A9270; G0378; G0379; J0456; J0696; J1100; J1650; J1940; J3475; Q9967

== ENCOUNTER → 2020-12-30 09:10 | Outpatient (CLI) | payer OTHER, MEDICARE, SELFPAY ==
[2020-12-30 17:32] LABS: SARS-CoV-2 RNA PCR Negative
== END ==
PROVIDERS: PCP Family Medicine; Visit Provider Family Medicine
DX: R68.89 Other general symptoms and signs (principal); Z20.822 Contact with and (suspected) exposure to COVID-19
CPT/HCPCS: C9803; U0003; U0005

== ENCOUNTER 2021-04-18 16:37 | Emergency (ER) | payer MEDICARE, SELFPAY ==
[2021-04-18 16:52] VITALS: BP 129/90; PULSE 74; RESP 17; TEMP 36.8; O2SAT 98
--- NOTE | 2021-04-18 17:28 | ED.SKABFB ---
HPI - Skin/Abscess/Foreign Bdy General Chief complaint: Skin/Abscess/Foreign Body Stated complaint: abcess on back Time Seen by Provider: 04/18/21 17:14 Source: RN notes reviewed History of Present Illness HPI narrative: Patient presents emergency room from home for back abscess. Patient states that sometime ago he was told that he had had a blackhead that it enlarged on his back and he did have a lump in that region for some time he states that earlier this week and begun to turn red and then 2 days ago it burst open and had purulent drainage she states that is scabbed over but continues to remain red and came to the emergency department for further evaluation he denies any fevers or chills chest pain shortness of breath or any other sign Related Data Home Medications Medication Instructions Recorded Confirmed atorvastatin 20 mg PO DAILY 05/10/19 12/16/20 potassium chloride 20 meq PO DAILY 05/10/19 12/16/20 aspirin 81 mg PO DAILY 07/19/20 12/16/20 meloxicam 7.5 mg PO DAILY 12/11/20 12/16/20 Allergies Allergy/AdvReac Type Severity Reaction Status Date / Time amiodarone Allergy Mild Rash Verified 12/16/20 13:08 Review of Systems Review of Systems: Gen.: Denies fevers or chills Respiratory: Denies shortness of breath CV: Denies chest pain Neuro: Denies numbness, tingling, weakness Skin: See HPI Endo: Denies DM PMFSH Past Medical History Medical History Arthritis Atrial fibrillation and flutter Cataracts, bilateral GERD (gastroesophageal reflux disease) HTN (hypertension) Hypercholesterolemia Surgical History Surgical History (Updated 12/17/20 @ 10:09 by NEO OlivierN-C) H/O mitral valve replacement History of appendectomy Hx of tonsillectomy Family History Family History Mother Patient's mother is , Onset Age: 72 Family history unknown, Onset Age: 72 Father Patient's father is , Onset Age: 82 Family history unknown, Onset Age: 73 Social History Social History Smoking status: Never smoker Second hand tobacco smoke exposure: No Smoking end date: 05/24/1966 Alcohol intake: never Substance use: never Gender identity (if verbalized by the patient): Male Spiritual care concerns: No Exam Narrative: APPEARANCE: No acute distress, nontoxic, resting in bed Eyes: EOMI HEENT: Normocephalic, atraumatic, RESPIRATORY: No respiratory distress MUSCULOSKELETAl: Moves all extremities NEURO: Awake and alert. Following commands, speech normal, no focal deficits SKIN:: Warm, dry. Left upper back has a raised region with an overlying black scab and there is proximally 1 similar in size with mild fluctuance consistent with a cyst present Course Course Emergency Course: Discussed with patient results of workup and diagnosis. Discussed need for follow-up with primary care, proper use of medication, and reasons to return to the emergency department. Patient understands and agrees to current treatment plan Vital Signs Vital signs: Vital Signs Temperature 98.3 F 04/18/21 16:52 Pulse Rate 74 04/18/21 16:52 Respiratory Rate 17 04/18/21 16:52 Blood Pressure 129/90 04/18/21 16:52 Pulse Oximetry 98 04/18/21 16:52 Temperature 98.3 F 04/18/21 16:52 Pulse Rate 74 04/18/21 16:52 Respiratory Rate 17 04/18/21 16:52 Blood Pressure 129/90 04/18/21 16:52 Pulse Oximetry 98 04/18/21 16:52 Procedures Abscess I/D back: Abcess I&D Additional Comments: Patient with left upper back with scabbing present scabbing was removed from cyst a.m. approximately 2 to 3 mm of purulent drainage was expressed. Sterile dressing was applied patient tolerated the procedure well Discharge Plan Discharge Clinical Impression: Abscess of back Patient Disposition: Home,
[2021-04-18] MEDS: CEPHALEXIN 500 MG CAPSULE PO (17:38)
== END 2021-04-18 17:45 | disposition home or self-care (01) ==
LOC: ANHED 17:39
PROVIDERS: Emergency Provider Emergency Medicine; PCP Family Medicine
DX: L02.212 Cutaneous abscess of back [any part, except buttock and flank] (principal); I48.91 Unspecified atrial fibrillation; I48.92 Unspecified atrial flutter; I10 Essential (primary) hypertension; E78.00 Pure hypercholesterolemia, unspecified; M19.90 Unspecified osteoarthritis, unspecified site; K21.9 Gastro-esophageal reflux disease without esophagitis; Z95.2 Presence of prosthetic heart valve
CPT/HCPCS: 99283; A9270

== ENCOUNTER 2021-07-12 15:17 | Emergency (ER) | payer MEDICARE, SELFPAY ==
--- NOTE | ~2021-07-12 | CT_ITS ---
EXAMINATION: CT cervical spine wo con DATE: 07/12/2021 15:45 INDICATION: Neck pain TECHNIQUE: Computed tomography (CT) of the cervical spine was performed without intravenous contrast. The dose-length product was 160 mGy-cm. Automated exposure control and iterative reconstruction tech nique were employed. COMPARISON: None FINDINGS: Accentuated cervical lordosis. There is advanced degenerative disc disease at all cervical spine levels with grade 1 degenerative spondylolisthesis at C6-7 and C7-T1. Odontoid process is trupti l. There is advanced multilevel uncinate and facet degenerative change. Craniovertebral junction is within normal limits. There is carotid atherosclerosis. No acute fracture or traumatic malalignment. No significant paraspinal soft tissue abnormality. Lung apices are unrema rkable. IMPRESSION: 1. No acute abnormality of the cervical spine. 2: Severe cervical spondylosis. Reviewed, dictated and finalized at location A. E HOLDER
--- NOTE | ~2021-07-12 | CT_ITS ---
EXAMINATION: CT brain wo con DATE: 07/12/2021 15:44 INDICATION: Headache TECHNIQUE: Computed tomography (CT) of the head was performed without intravenous contrast. The dose- length product was 605.33 mGy-cm. Automated exposure control and iterative reconstruction technique w ere employed. COMPARISON: None FINDINGS: There is an age-indeterminate right frontal lobe infarction. No acute intracranial hemorrha ge, infarction, mass or mass effect. No ventriculomegaly or midline shift. Basilar cisterns are paten t. There is intracranial atherosclerosis. Paranasal sinuses and mastoids are pneumatized. There are s cattered mild periventricular and subcortical white matter changes, most likely related to small vess el ischemic disease (microangiopathy). IMPRESSION: 1. Age-indeterminate right frontal lobe infarction. Consider correlation with MRI. 2: Chronic age-related findings. Reviewed, dictated and finalized at location A. GRATION INVESTIGATOR IMPRESSION: 1. Age-indeterminate right frontal lobe infarction. Consider correlation with M RI. 2: Chronic age-related findings.
--- NOTE | ~2021-07-12 | XR_ITS ---
XR chest 1V 07/12/2021 15:46 Indication: Chest pain Procedure: AP portable chest Comparison: 12/16/2020 Findings: Status post median sternotomy for CABG. Cardiomegaly. No focal air space disease, pulmonary edema, pleural effusion or suspected pneumothorax. No acute osseous abnormality. Impression: 1: No acute cardiopulmonary disease. Reviewed, dictated and finalized at location A. ERING MACHINE OPERATOR AUTOMATIC Impression: 1: No acute cardiopulmonary disease.
[2021-07-12 15:18] VITALS: BP 147/80; PULSE 97; RESP 18; TEMP 35.8; O2SAT 100
--- NOTE | 2021-07-12 15:24 | ED.GENADULT ---
HPI - General Adult General Chief complaint: Unspecified Stated complaint: neck pain Time Seen by Provider: 07/12/21 15:23 Source: patient and RN notes reviewed Mode of arrival: ambulatory Limitations: no limitations History of Present Illness HPI narrative: Patient is 80 years old white male drove himself to the emergency room because of pain at the back of his neck. Patient was sitting on the recliner for long hours watching TV, got of the recliner and went to bed and turn his head to one side to get something, felt a pop at the back of his neck. Patient denies any fever, chills, nausea, vomiting, headache, chest pain or shortness of breath. Patient did not take any pain medication since last night. Patient denies any focal deficit Related Data Home Medications Medication Instructions Recorded Confirmed atorvastatin 20 mg PO DAILY 05/10/19 12/16/20 potassium chloride 20 meq PO DAILY 05/10/19 12/16/20 aspirin 81 mg PO DAILY 07/19/20 12/16/20 meloxicam 7.5 mg PO DAILY 12/11/20 12/16/20 Allergies Allergy/AdvReac Type Severity Reaction Status Date / Time amiodarone Allergy Mild Rash Verified 12/16/20 13:08 Review of Systems Review of Systems: CONSTITUTIONAL: Denies fever, chills, or sweats. EYES: Denies visual changes, redness, or discharge. ENT: Denies rhinorrhea, congestion, sore throat, or otalgia. CARDIOVASCULAR: Denies chest pain, palpitations, or edema. RESPIRATORY: Denies cough or dyspnea. GASTROINTESTINAL: Denies abdominal pain, nausea, vomiting, or diarrhea. GENITOURINARY: Denies dysuria or hematuria. SKIN: Denies rash or itching. MUSCULOSKELETAL: Denies back pain, joint pain, or myalgia. NEUROLOGIC: Denies headache, numbness, or weakness. PSYCHIATRIC: Denies anxiety or depression. [facility] Past Medical History Medical History Arthritis Atrial fibrillation and flutter Cataracts, bilateral GERD (gastroesophageal reflux disease) HTN (hypertension) Hypercholesterolemia Surgical History Surgical History H/O mitral valve replacement History of appendectomy Hx of tonsillectomy Family History Family History Mother Patient's mother is , Onset Age: 72 Family history unknown, Onset Age: 72 Father Patient's father is , Onset Age: 82 Family history unknown, Onset Age: 73 Social History Social History Smoking status: Never smoker Second hand tobacco smoke exposure: No Smoking end date: 05/24/1966 Alcohol intake: never Substance use: never Gender identity (if verbalized by the patient): Male Spiritual care concerns: No Exam Narrative: General appearance: Well-developed, well-nourished Skin: Normal color Head: Normocephalic, nontraumatic Eyes: Clear conjunctiva ENT: Oropharynx normal, ears normal, nose normal Neck: Diffuse tenderness at the back of the neck mainly midline, no bruises, no swelling, no mass, no lymphadenopathy, slight limited range of motion Chest and respiratory: Airway patent, no respiratory distress, no accessory muscle use Heart: Regular rate/rhythm Abdomen: Soft, nontender, no organomegaly, quiet bowel sounds Vascular: Normal peripheral pulses, normal capillary refill. Musculoskeletal: Normal range of motion, nontender back Neurologic: Alert and oriented ?3, ALLIANCE DIRECTOR is normal as tested, no gross motor deficit Course Course Emergency Course: Muscular strain/sprain is my concern Vital Signs Vital signs: Vital Signs Temperature 35.8 C L 07/12/21
--- NOTE | 2021-07-12 15:25 | ECG_ITS ---
Measurements Intervals [place] Rate: 120 P: [place]: 0 QRS: -23 QRSD: 110 T: 76 QT: 345 QTc: 488 Interpretive Statements ATRIAL FIBRILLATION WITH RAPID VENTRICULAR RESPONSE VENTRICULAR PREMATURE COMPLEXES INCOMPLETE RIGHT BUNDLE BRANCH BLOCK NONSPECIFIC ST & T-WAVE ABNORMALITY- ANTEROLAT/HIGH LAT LEADS BASELINE ARTIFACT- I, II, III, AVR, AVL, AVF, V1 ABNORMAL ECG ABNORMAL ECG Electronically Signed On 07-12-2021 18:46:43 MONOLOGIST by Gopi Neal D.O.
[2021-07-12] MEDS: ACETAMINOPHEN 325 MG TABLET 650 MG PO (16:38)
[2021-07-12] MEDS: IBUPROFEN 600 MG TABLET PO (16:38)
[2021-07-12 16:50] VITALS: BP 142/78; PULSE 78; RESP 18; O2SAT 99
== END 2021-07-12 16:51 | disposition home or self-care (01) ==
PROVIDERS: Emergency Provider Emergency Medicine; PCP Nurse Practitioner
DX: M54.2 Cervicalgia (principal); I48.91 Unspecified atrial fibrillation; I48.92 Unspecified atrial flutter; I10 Essential (primary) hypertension; E78.00 Pure hypercholesterolemia, unspecified; K21.9 Gastro-esophageal reflux disease without esophagitis; M19.90 Unspecified osteoarthritis, unspecified site; Z95.2 Presence of prosthetic heart valve; Z87.891 Personal history of nicotine dependence; Z79.82 Long term (current) use of aspirin; M47.812 Spondylosis without myelopathy or radiculopathy, cervical region; I49.3 Ventricular premature depolarization; I45.10 Unspecified right bundle-branch block; R94.31 Abnormal electrocardiogram [ECG] [EKG]
CPT/HCPCS: 70450; 71045; 72125; 93005; 99284; A9270

== ENCOUNTER 2022-11-11 12:46 | Observation (INO) | payer MEDICARE, SELFPAY ==
[2022-11-11] VITALS (15 sets, daily range): BP systolic 120–153; BP diastolic 86–106; PULSE 79–103; RESP 16–26; TEMP 36.2–36.9; O2SAT 97–100
--- NOTE | ~2022-11-11 | XR_ITS ---
EXAMINATION: XR chest 1V portable DATE: 11/11/2022 13:28 INDICATION: Lightheadedness TECHNIQUE: frontal view of the chest was obtained. COMPARISON: Chest radiograph dated 07/12/2021 FINDINGS: The lungs remain clear with no focal airspace opacities, pulmonary edema, pleural effusion or pneumot horax. The cardiomediastinal silhouette is normal. Median sternotomy wires and mediastinal surgical c lips are seen, likely from prior coronary artery bypass grafting. IMPRESSION: 1. No acute cardiopulmonary disease. Reviewed, dictated and finalized at location A.
--- NOTE | 2022-11-11 12:50 | ECG_ITS ---
Measurements Intervals [place] Rate: 89 P: 125 [place]: 227 QRS: 13 QRSD: 181 T: 21 QT: 408 QTc: 499 Interpretive Statements SINUS RHYTHM WITH MARKED SINUS ARRHYTHMIA WITH FIRST DEGREE AV BLOCK RIGHT BUNDLE BRANCH BLOCK [120+ ms QRS DURATION, UPRIGHT V1, 40+ ms S IN I/aVL/V4/V5/V6] COMPARED TO ECG 07/12/2021 15:31:04 THE ATRIAL FIBRILLATION HAS RESOLVED FIRST DEGREE AV BLOCK NOW PRESENT RIGHT BUNDLE-BRANCH BLOCK NOW PRESENT Electronically Signed On 11-11-2022 19:55:28 CDT by Daphne Muse M.D.
--- NOTE | 2022-11-11 13:01 | ED.DIZZY ---
HPI - Dizziness General Chief Complaint: Dizziness Stated Complaint: LIGHT-HEADED Time Seen by Provider: 11/11/22 12:52 History of Present Illness HPI Narrative: Patient is an 82-year-old male with a history of A-fib on Eliquis, mitral valve replacement, hypertension, hyperlipidemia presenting with lightheadedness. Patient states that he recently saw his primary care physician who told him that his potassium has been too high. He stopped taking his potassium pills and he was supposed to go in for blood work today. States that he woke up and when he got out of bed he felt very lightheaded. States that he continued to feel lightheaded with standing so his daughter told him to come to the hospital. States he has not had anything to eat or drink today. He denies chest pain, palpitations, shortness of breath, abdominal pain, nausea or vomiting, diarrhea, dysuria, leg swelling. States that as long as he does not stand up he feels fine. Related Data Home Medications Medication Instructions Recorded Confirmed atorvastatin 20 mg tablet 20 mg PO HS 05/10/19 11/11/22 Eliquis 2.5 mg PO BID 11/11/22 11/11/22 Allergies Allergy/AdvReac Type Severity Reaction Status Date / Time amiodarone Allergy Mild Rash Verified 11/11/22 18:24 Review of Systems Review of Systems: All systems reviewed & are unremarkable except as noted in HPI and below PMFSH Past Medical History Medical History (Updated 11/19/22 @ 19:00 by Lexi Sullivan MD) Arthritis Chronic anticoagulation Chronic hyponatremia Gastroesophageal reflux Hypercholesterolemia Hypertension Paroxysmal atrial fibrillation Paroxysmal atrial flutter Surgical History Surgical History (Updated 11/11/22 @ 22:22 by Montserrat France PA-C) History of appendectomy History of cardioversion History of mitral valve replacement with bioprosthetic valve History of tonsillectomy Family History Family History Mother Patient's mother is , Onset Age: 72 Family history unknown, Onset Age: 72 Father Patient's father is , Onset Age: 82 Family history unknown, Onset Age: 73 Social History Social History (Updated 11/11/22 @ 22:21 by Montserrat France PA-C) Social History: Surrogate medical decision maker: Danyell Cooley, daughter. Code status: Full code. Smoking status: Never smoker Second hand tobacco smoke exposure: No Smoking end date: 05/24/1966 Alcohol intake: never Substance use: never Substance use type: does not use Lack of Transportation: No Lack of Food: Never True Current Housing: I Have Housing Concerned About Future Housing: No Difficulty Paying Gas/Electric Bills: No Difficulty Paying for Meds: No Currently Unemployed: No Education: Don't Know Difficulty w/ Childcare or Family Care: No Additional living arrangements comments: The patient lives in [place] with his daughter. Spiritual care concerns: No Exam Narrative: GENERAL: Elderly male laying in bed in no acute distress, pleasant and cooperative HEAD: Normocephalic, atraumatic. EYES: PERRLA and EOMI. ENT: Nares clear, no rhinorrhea or epistaxis. Mucous membranes tacky NECK: Supple. CHEST: Clear to auscultation. No respiratory distress. healed midline scar from prior MV replacement HEART: Regular rate and rhythm. Normal peripheral pulses. ABDOMEN: Soft, nontender, nondistended EXTREMITIES: Normal range of motion. No edema. SKIN: Warm, dry, no rash. NEURO: No focal deficits. Alert and oriented x3. PSYCH: Normal mood and affect. Course Vital Signs Vital signs: Vital Signs Temperature 98.2 F 11/11/22 12:47 Pulse Rate 97 11/11/22 12:47 Respiratory Rate 18 11/11/22 12:47 Blood Pressure 145/87 H 11/11/22 12:47 Pulse Oximetry 98 11/11/22 12:47 Oxygen Delivery Room Air 11/11/22 12:47 Temperature 97.3 F L 11/13/22 13:53 Pulse Ra
[2022-11-11] MEDS: SODIUM CHLORIDE 0.9% IV 1,000 ML 999 ML IV CONT (13:17)
[2022-11-11 13:18] LABS: Basophils Percent Auto 0.4 % (0.2-1.2); Eosinophils Percent Auto 0.1 % (0-4.4); Hematocrit 38.8 % (42.0-52.0); Hemoglobin 13.9 g/dL (14.0-18.0); Immature Granulocyte Absolute 0.03 K/mm3 (0.00-0.031); Immature Granulocyte Percent A 0.4 % (0-0.5); Lymphocytes Absolute Auto 0.67 K/mm3 (0.9-3.2); Mean Corpuscular HGB Conc 35.8 g/dl (32-36); Mean Corpuscular Hemoglobin 31.3 pg (26-34); Mean Corpuscular Volume 87.4 fl (80-100); Mean Platelet Volume 9.2 fl (7.4-10.4); Monocytes Absolute Auto 0.7 K/mm3 (0.1-0.6); Monocytes Percent Auto 8.5 % (2.6-8.5); Neutrophils Percent Auto 82.6 % (45.5-73.1); Platelet Count Result 222 k/mm3 (150-375); Red Blood Count 4.44 M/mm3 (4.6-6.20); Red Cell Distribution Width 12.2 % (11.5-14.5); White Blood Count 8.4 K/mm3 (4.5-10.0)
[2022-11-11 13:29] LABS: Alanine Aminotransferase 22 U/L (6-50); Albumin Level 4.5 g/dL (3.5-5.1); Alkaline Phosphatase 88 U/L (38-126); Anion Gap 9 mmol/L (8-16); Aspartate Amino Transferase 35 U/L (17-59); Bilirubin,Total 1.6 mg/dL (0.2-1.3); Blood Urea Nitrogen 34 mg/dL (9-20); Calcium 8.9 mg/dL (8.4-10.2); Carbon Dioxide 30 mmol/L (22-30); Chloride 91 mmol/L (98-107); Estimated CRCL calculation 50 ml/min; Estimated Glomerular Filt Rate > 60; Glucose 117 mg/dL (65-110); Magnesium 1.7 mg/dL (1.6-2.3); Potassium 2.5 mmol/L (3.4-5.0); Sodium 130 mmol/L (137-145)
[2022-11-11 13:38] LABS: INR 1.2; Prothrombin Time 15.8 Seconds (11.1-14.7)
[2022-11-11 13:39] LABS: Troponin I 0.034 ng/mL (0.000-0.034)
[2022-11-11 13:48] LABS: Partial Thromboplastin Time 32.7 SECONDS (22.3-36.8)
[2022-11-11] MEDS: POTASSIUM CHLORIDE 20 MEQ PACKET (FOR LIQUID) 40 MEQ PO (13:55)
[2022-11-11] MEDS: POTASSIUM CHLORIDE INJ 40 MEQ in SODIUM CHLORIDE 0.9% IV 500 ML 130 MEQ IVPB (13:59)
[2022-11-11 14:50] LABS: Appearance Urine Clear (Clear); Bilirubin Urine Negative (Negative); Blood Urine Negative (Negative); Color Urine Yellow (Yellow); Glucose Urine UA Negative (Negative); Ketones Urine 1+ mg/dL (Negative); Leukocyte Esterase Ur Negative LEU/UL (Negative); Nitrate Urine Negative (Negative); Protein Urine Negative (Negative); Specific Grav Ur 1.019 (1.001-1.035)
[2022-11-11 14:53] LABS: Add Urine Microscopic? NO
[2022-11-11 16:30] LABS: Troponin I 0.035 ng/mL (0.000-0.034)
--- NOTE | 2022-11-11 16:39 | PC.NURSE ---
Dinner tray ordered for pt.
--- NOTE | 2022-11-11 17:45 | PM.IMHP ---
H&P: HPI History of Present Illness Date/Time: 11/11/22 19:00 Chief Complaint: Lightheadedness. Narrative: This is a pleasant 82-year-old male with hypertension, hyperlipidemia, and paroxysmal atrial fibrillation/flutter on anticoagulation who presented to the emergency department via EMS from home for evaluation of lightheadedness. The patient provides the following history. He recently saw his primary care physician who told him that his potassium level was too high and he was instructed to stop taking potassium supplementation (he was on 10 mEq KCL daily). Since that time he has started to feel weak and this morning when he got out of bed he reports feeling extremely lightheaded and dizzy. His symptoms seemed to improve once he was in a seated position. He had a morning cup of coffee and took his medications and thought perhaps he would feel better however as the day progressed his lightheadedness remained and he came in for evaluation. His vital signs were stable on arrival. Labs were significant for sodium 130, potassium 2.5, chloride 91, BUN any 34, creatinine 0.80. He was given a total of 80 mEq of potassium in the ED and he is being admitted for close monitoring. At the time my evaluation he feels just fine and has no complaints although he admits he has not tried to get up and walk thus he cannot say for certain whether not he is still woozy. He denies vertigo, focal weakness, paresthesias, chest pain, shortness a breath, nausea, vomiting, diarrhea, and dysuria. Review of Systems Review of Systems: Twelve systems were reviewed and are negative except for as per HPI. [facility] Past Medical History Medical History (Updated 11/11/22 @ 22:22 by Montserrat France PA-C) Arthritis Chronic anticoagulation Chronic hyponatremia Gastroesophageal reflux Hypercholesterolemia Hypertension Paroxysmal atrial fibrillation Paroxysmal atrial flutter Surgical History Surgical History (Updated 11/11/22 @ 22:22 by Montserrat France PA-C) History of appendectomy History of cardioversion History of mitral valve replacement with bioprosthetic valve History of tonsillectomy Family History Family History Mother Patient's mother is , Onset Age: 72 Family history unknown, Onset Age: 72 Father Patient's father is , Onset Age: 82 Family history unknown, Onset Age: 73 Social History Social History (Updated 11/11/22 @ 22:21 by Montserrat France PA-C) Social History: Surrogate medical decision maker: Danyell Cooley, daughter. Code status: Full code. Smoking status: Never smoker Second hand tobacco smoke exposure: No Smoking end date: 05/24/1966 Alcohol intake: never Substance use: never Substance use type: does not use Lack of Transportation: No Lack of Food: Never True Current Housing: I Have Housing Concerned About Future Housing: No Difficulty Paying Gas/Electric Bills: No Difficulty Paying for Meds: No Currently Unemployed: No Education: Don't Know Difficulty w/ Childcare or Family Care: No Additional living arrangements comments: The patient lives in [place] with his daughter. Spiritual care concerns: No Meds Home Medications and Allergies Home Medications Medication Instructions Recorded Confirmed Type atorvastatin 20 mg tablet 20 mg PO HS 05/10/19 11/11/22 History hydrochlorothiazide 25 mg tablet 25 mg PO DAILY #90 tabs 05/18/19 11/11/22 Rx albuterol sulfate 90 mcg/actuation 2 puff inhalation QIDRT #8.5 grams 12/18/20 11/11/22 Rx aerosol inhaler (Proventil HFA) Eliquis 2.5 mg PO BID 11/11/22 11/11/22 History diltiazem HCl 120 mg PO DAILY 11/11/22 11/11/22 History lisinopril 2.5 mg PO DAILY 11/11/22 11/11/22 History Allergies Allergy/AdvReac Type Severity Reaction Status Date / Time amiodarone Allergy Mild Rash Verified 11/11/22 18:24 Vital Signs Vital Signs - 24 hr
--- NOTE | 2022-11-11 18:18 | ADMGEN ---
This patient, Antoni Cooley, was admitted to 3 Med Surg Room 315-01. Patient/family oriented to hospital policies and general routines including ID bracelet, bed and alarms, visiting hours, pain management, procedures, bathroom and other care routines, personal items, smoking policy, room service/diet, and visiting hours. Information on how to activate the Rapid Response Team has been discussed. Patient/Family are encouraged to report perceived risks to care and to ask questions if they do not understand what they are told or what they should do.
[2022-11-11 18:45] LABS: Anion Gap 6 mmol/L (8-16); Blood Urea Nitrogen 25 mg/dL (9-20); Calcium 8.3 mg/dL (8.4-10.2); Carbon Dioxide 23 mmol/L (22-30); Chloride 99 mmol/L (98-107); Estimated CRCL calculation 56 ml/min; Estimated Glomerular Filt Rate > 60; Glucose 155 mg/dL (65-110); Magnesium 1.6 mg/dL (1.6-2.3); Potassium 3.6 mmol/L (3.4-5.0); Sodium 128 mmol/L (137-145)
--- NOTE | 2022-11-11 22:04 | PC.NURSE ---
called about elevated bp 153/106, pt has home bp meds, inquired if we can restart home meds.
[2022-11-11] MEDS: ATORVASTATIN 20 MG TABLET PO (23:25)
[2022-11-11] MEDS: APIXABAN 2.5 MG TABLET BY MOUTH (23:25)
[2022-11-12] VITALS (13 sets, daily range): BP systolic 138–178; BP diastolic 58–111; PULSE 89–104; RESP 16–18; TEMP 36.1–36.8; O2SAT 97–98
--- NOTE | 2022-11-12 | ECHO_ITS ---
Patient Info Name: Antoni Cooley Age: 82 years : 1940 Gender: Male Ht: 72 in Wt: 129 lbs BSA: 1.71 m2 HR: 92 bpm BP: 171 / 107 mmHg Heart Rhythm: Atrial Fibrillation Technical Quality: Fair Exam Date: 11/12/2022 12:52 PM Exam Location: [facility] Patient Status: Outpatient Admit Date: 11/11/2022 Staff Ordering Physician: Gopi Neal DO Adolescent Coordinator: Ashleigh Quigley RDCS Attending Provider: Maria Del Carmen No PA-C Referring Physician: Ángel BOWER; Exam Type: CA echo doppler color flow Study Info Indications - PAF/DIZZINESS/ELEVATED TROPONIN Complete two-dimensional, color flow and Doppler transthoracic echocardiogram is performed. Summary 1. Complete two-dimensional, color flow and Doppler transthoracic echocardiogram is performed. 2. Left ventricular chamber dimension is normal. 3. Left ventricular systolic function is normal, estimated at 55-60%. 4. There is moderate concentric increased left ventricular wall thickness. 5. Left ventricular septal wall motion is abnormal with septal motion related to bundle branch block. 6. The left ventricular diastolic function is abnormal. 7. E/e' 18 is elevated. 8. Atrial fibrillation. 9. Right ventricular systolic function is reduced based on abnormal TAPSE 1.3 cm. 10. Left atrial chamber dimension is severely enlarged. 11. Right atrial chamber dimension is severely enlarged. 12. There is moderate aortic valve sclerosis. 13. There is mild to moderate aortic valve regurgitation. 14. The bioprosthetic mitral valve leaflets are not well seen. 15. No pulmonary hypertension, estimated pulmonary arterial systolic pressure is 12 mmHg. Left Ventricle Atrial fibrillation. E/e' 18 is elevated. Left ventricular chamber dimension is normal. Left ventricular systolic function is normal, estimated at 55-60%. There is moderate concentric increased left ventricular wall thickness. Left ventricular septal wall motion is abnormal with septal motion related to bundle branch block. The left ventricular diastolic function is abnormal. Right Ventricle Right ventricular systolic function is reduced based on abnormal TAPSE 1.3 cm. Right ventricular chamber dimension is not well visualized. Left Atria Left atrial chamber dimension is severely enlarged. Right Atria Right atrial chamber dimension is severely enlarged. Aortic Valve The aortic valve is trileaflet. There is moderate aortic valve sclerosis. There is no aortic valve stenosis. There is mild to moderate aortic valve regurgitation. Pulmonic Valve There is no pulmonic regurgitation. Mitral Valve The bioprosthetic mitral valve leaflets are not well seen. There is no stenosis of the bioprosthetic mitral valve. There is no regurgitation of the bioprosthetic mitral valve. Tricuspid Valve There is no tricuspid valve regurgitation. No pulmonary hypertension, estimated pulmonary arterial systolic pressure is 12 mmHg. Pericardium/Pleural There is no pericardial effusion. Inferior Vena Cava Normal inferior vena cava with >50% collapse upon inspiration consistent with normal right atrial pressure, 5 mmHg. Aorta The aortic root size at the sinus of Valsalva is normal. Left Ventricular Outflow Tract Name Value Normal LVOT 2D LVOT Diameter 2.2 cm LVOT Doppler
--- NOTE | 2022-11-12 04:45 | ECG_ITS ---
Measurements Intervals [place] Rate: 91 P: [place]: 0 QRS: 46 QRSD: 174 T: 37 QT: 412 QTc: 507 Interpretive Statements ATRIAL FIBRILLATION WITH ABERRANT CONDUCTION OR VENTRICULAR PREMATURE COMPLEXES INDETERMINATE AXIS RIGHT BUNDLE BRANCH BLOCK [120+ ms QRS DURATION, UPRIGHT V1, 40+ ms S IN I/aVL/V4/V5/V6] COMPARED TO THE PRIOR TRACING ATRIAL FIBRILLATION NOW PRESENT ABERRANT CONDUCTION OF SUPRAVENTRICULAR BEAT(S) NOW PRESENT Electronically Signed On 11-12-2022 13:22:08 CDT by Daphne Muse M.D.
--- NOTE | 2022-11-12 04:54 | PC.NURSE ---
pt having multiple pvc, informed Md Baker, stat lab ordered with electrolyte replacement and lab work
[2022-11-12] MEDS: POTASSIUM CHLORIDE 20 MEQ PACKET (FOR LIQUID) 40 MEQ PO (05:03)
--- NOTE | 2022-11-12 05:08 | PC.NURSE ---
ekg changes report to Md Peralta
[2022-11-12] MEDS: MAGNESIUM SULF 1 GM/D5W 100 ML 1 GM/100 ML BAG IVPB (05:20)
[2022-11-12 06:59] LABS: Anion Gap 9 mmol/L (8-16); Blood Urea Nitrogen 20 mg/dL (9-20); Calcium 8.7 mg/dL (8.4-10.2); Carbon Dioxide 29 mmol/L (22-30); Chloride 93 mmol/L (98-107); Estimated CRCL calculation 50 ml/min; Estimated Glomerular Filt Rate > 60; Glucose 153 mg/dL (65-110); Magnesium 2.2 mg/dL (1.6-2.3); Potassium 3.4 mmol/L (3.4-5.0); Sodium 131 mmol/L (137-145)
[2022-11-12] MEDS: lisinopriL 2.5 MG TABLET PO (09:00)
[2022-11-12] MEDS: APIXABAN 2.5 MG TABLET BY MOUTH ×2 (09:00→17:21)
[2022-11-12 10:22] LABS: Troponin I 0.047 ng/mL (0.000-0.034)
--- NOTE | 2022-11-12 11:51 | PM.CNCAR ---
Assessment and Plan Assessment and plan (1) Elevated troponin: Code(s): R77.8 - Other specified abnormalities of plasma proteins Status: Acute Assessment and Plan: Trending up to mildly high at .047. Probably related to Hypertension, PAF. Doubt ACS given no symptoms for it and normal cath in 2006. Trend troponin to peak. (2) Paroxysmal atrial fibrillation: Code(s): I48.0 - Paroxysmal atrial fibrillation Status: Acute Assessment and Plan: Asymptomatic. [id number] 3. On Eliquis. Rate control with Diltiazem. His regular payroll services analyst is Dr. Anthony Cooley at [facility]. Obtain echo. (3) Hypertension: Code(s): I10 - Essential (primary) hypertension Status: Acute Assessment and Plan: Very high. Given low potassium and volume depletion on HCTZ. Would rather increase Lisinopril 10 mg daily and Diltiazem 180 mg daily. (4) Hyperlipidemia: Code(s): E78.5 - Hyperlipidemia, unspecified Status: Acute Assessment and Plan: On Atorvastatin. History of Present Illness History of Present Illness Consult date/time: 11/12/22 11:51 Reason For Visit: Hypokalemia Narrative: 82 yr old man presented to ER with lightheadedness. He has a history of MVP s/p bioprosthetic MVR in 2006, paroxysmal atrial fib/flutter, hypertension. Normal cath in 2006. His regular payroll services analyst is Dr. Anthony Cooley at [facility]. Reports that yesterday he had lightheadedness and came to ER and found he had very low potassium and dehydrated. He reports he feels better now and no longer lightheaded. He reports he was told he goes in and out of rhythm but he does not feel it. He can walk 1 block and around where he lives without any problems. Denies chest pain, sob, orthopnea, PND, edema, palpitations. Review of Systems Review of Systems: All systems reviewed & are unremarkable except as noted in HPI and below Constitutional: Constitutional: Reports as per HPI, Denies chills and Denies fever(s) Cardiovascular: Cardiovascular: Reports as per HPI, Denies chest pain, Denies irregular heart rhythm, Denies leg edema and Reports lightheadedness Respiratory: Respiratory: Reports as per HPI and Denies dyspnea Gastrointestinal: Gastrointestinal: Reports as per HPI and Denies abdominal pain Genitourinary: Genitourinary: Reports as per HPI and Denies dysuria Musculoskeletal: Musculoskeletal: Reports as per HPI Neurologic: Reports as per HPI, Denies dizziness and Denies syncope [facility] Past Medical History Medical History (Updated 11/12/22 @ 12:04 by Gopi Neal DO) Arthritis Chronic anticoagulation Chronic hyponatremia Gastroesophageal reflux Hypercholesterolemia Hypertension Paroxysmal atrial fibrillation Paroxysmal atrial flutter Surgical History Surgical History (Updated 11/11/22 @ 22:22 by Montserrat France PA-C) History of appendectomy History of cardioversion History of mitral valve replacement with bioprosthetic valve History of tonsillectomy Family History Family History Mother Patient's mother is , Onset Age: 72 Family history unknown, Onset Age: 72 Father Patient's father is , Onset Age: 82 Family history unknown, Onset Age: 73 Social History Social History (Updated 11/11/22 @ 22:21 by Montserrat France PA-C) Social History: Surrogate medical decision maker: Danyell Cooley, daughter. Code status: Full code. Smoking status: Never smoker Second hand tobacco smoke exposure: No Smoking end date: 05/24/1966 Alcohol intake: never Substance use: never Substance use type: does not use Lack of Transportation: No Lack of Food: Never True Current Housing: I Have Housing Concerned About Future Housing: No Difficulty Paying Gas/Electric Bills: No Difficulty Paying for Meds: No Currently Unemployed: No Education: Don't Know Difficulty w/ Ch
--- NOTE | 2022-11-12 15:14 | PM.IMPN ---
Progress Note: A&P Assessment and Plan (1) Hypokalemia: Code(s): E87.6 - Hypokalemia Status: Acute Assessment and Plan: Patient was recently taken off of his daily potassium supplementation as he was having issues with hyperkalemia. Potassium low on presentation at 2.5. Resolved with supplementation. Stable at 3.4 today. HCTZ is on hold at this time. Continue to monitor BMP closely. Magnesium is 2.2 (2) Elevated troponin: Code(s): R77.8 - Other specified abnormalities of plasma proteins Status: Acute Assessment and Plan: Elevated up to 0.47. Consult to Cardiology, recommendations appreciated. Not felt to be secondary to ACS and patient is asymptomatic. Echo completed with abnormal septal motion due to bundle branch block. [place] to be related to hypertension, PAF. Trend troponin to peak per Cardiology recommendation (3) Chronic hyponatremia: Code(s): E87.1 - Hypo-osmolality and hyponatremia Status: Acute Assessment and Plan: Sodium 131 today. Seems to be consistent with baseline (4) Hypertension: Code(s): I10 - Essential (primary) hypertension Status: Acute Assessment and Plan: Blood pressures elevated this morning, improved at this time. Last BP 138/91. Continue lisinopril, increased to 10 mg daily. Diltiazem increased to 180 mg daily per Cardiology recommendations. Will plan to discontinue HCTZ given hypokalemia and volume depletion (5) Chronic anticoagulation: Code(s): Z79.01 - halfway (current) use of anticoagulants Status: Acute Assessment and Plan: Continue low-dose Eliquis Plan Subjective Date/time seen: 11/12/22 15:14 Interval history: Date of service: 11/12/22 Antoni Cooley is an 82-year-old male with history of hypertension, proximal atrial fibrillation on chronic anticoagulation, and GERD who is seen in follow-up for lightheadedness. Patient reports today he is feeling very well. He has no complaints. States his dizziness/lightheadedness has resolved entirely. He denies chest pain, arm pain, jaw pain, neck pain, back pain. Denies palpitations. Does endorse mild dyspnea on exertion which sounds to be a chronic issue for him. Denies nausea, vomiting, fever, or chills. No abdominal pain. Tolerating his diet. Review of Systems Review of Systems: All systems reviewed & are unremarkable except as noted in HPI and below Exam Narrative: General: Thin, well-appearing 82-year-old male, sitting up in bed, comfortable, NARD Neuro: awake, alert and oriented x4, speech clear, no focal neuro deficits noted HEENMT: normocephalic, atraumatic, EOMI, sclerae anicteric Respiratory: clear to auscultation bilaterally, nonlabored breathing Cardio: regular rate, regular rhythm with S1-S2 Abdomen: nondistended, normoactive bowel sounds, soft, nontender to palpation Extremities: no edema, erythema, or tenderness to palpation Skin: no rashes or lesions, warm and dry Psych: appropriate mood and affect, judgment and insight intact Objective Data Vital Signs Vital Signs: Vital Signs - 24 hr 11/11/22 15:31 11/11/22 16:00 11/11/22 16:15 Temperature Pulse Rate 79 86 89 Respiratory Rate 18 18 20 Blood Pressure 133/93 H Pulse Oximetry 100 Oxygen Delivery 11/11/22 18:25 11/11/22 17:40 11/11/22 20:00 Temperature 98.4 F Pulse Rate 89 85 89 Respiratory Rate 20 16 Blood Pressure 138/87 Pulse Oximetry 100 100 Oxygen Delivery Room Air 11/11/22 21:54 11/12/22 00:00 11/12/22 04:00 Temperature 97.2 F L Pulse Rate 82 90 89 Respiratory Rate 18 Blood Pressure 153/106 H Pulse Oximetry 97 Oxygen Delivery 11/12/22 05:12 11/12/22 06:00 11/12/22 08:00 Temperature 98.2 F Pulse Rate 91 90 Respiratory Rate 16 Blood Pressure 150/97 H 161/103 H Pulse Oximetry 98 Oxygen Delivery 11/12/22 09:28 11/12/22 09:28 11/12/22 08:00 Temperat
[2022-11-12] MEDS: ATORVASTATIN 20 MG TABLET PO (20:05)
[2022-11-13] VITALS (8 sets, daily range): BP systolic 132–151; BP diastolic 87–103; PULSE 87–101; RESP 16–18; TEMP 36.3–36.4; O2SAT 95–100
[2022-11-13 06:18] LABS: Hematocrit 35.9 % (42.0-52.0); Hemoglobin 12.6 g/dL (14.0-18.0); Mean Corpuscular HGB Conc 35.1 g/dl (32-36); Mean Corpuscular Hemoglobin 31.1 pg (26-34); Mean Corpuscular Volume 88.6 fl (80-100); Platelet Count Result 218 k/mm3 (150-375); Red Blood Count 4.05 M/mm3 (4.6-6.20); Red Cell Distribution Width 12.1 % (11.5-14.5); White Blood Count 9.4 K/mm3 (4.5-10.0)
[2022-11-13 06:34] LABS: Anion Gap 4 mmol/L (8-16); Blood Urea Nitrogen 15 mg/dL (9-20); Calcium 8.6 mg/dL (8.4-10.2); Carbon Dioxide 33 mmol/L (22-30); Chloride 93 mmol/L (98-107); Estimated CRCL calculation 55 ml/min; Estimated Glomerular Filt Rate > 60; Glucose 97 mg/dL (65-110); Potassium 3.4 mmol/L (3.4-5.0); Sodium 130 mmol/L (137-145)
--- NOTE | 2022-11-13 07:48 | PM.PNCARD ---
Progress Note: A&P Assessment and Plan (1) Elevated troponin: Code(s): R77.8 - Other specified abnormalities of plasma proteins Status: Acute Assessment and Plan: Trending peaked at .047. Probably related to Hypertension, PAF. Doubt ACS given no symptoms for it and normal cath in 2006. No further cardiac workup is needed. May d/c home from cardiology standpoint and f/u with his regular private chef, Dr. Anthony Cooley at [facility]. (2) Paroxysmal atrial fibrillation: Code(s): I48.0 - Paroxysmal atrial fibrillation Status: Acute Assessment and Plan: Asymptomatic. [id number] 3. On Eliquis. Rate control with Diltiazem. 11/12/22 Echo: EF 55-60%, mod LVH, diastolic dysfunction with E/e' 18, RV dysfunction based on TAPSE 1.3 cm, severe biatrial enlargement, mild-mod AI, bioprosthetic mitral valve. (3) Hypertension: Code(s): I10 - Essential (primary) hypertension Status: Acute Assessment and Plan: Stable. Given low potassium and volume depletion on HCTZ. Increased Lisinopril 10 mg daily and Diltiazem 180 mg daily. (4) Hyperlipidemia: Code(s): E78.5 - Hyperlipidemia, unspecified Status: Acute Assessment and Plan: On Atorvastatin. Subjective Date/time seen: 11/13/22 07:48 Interval history: Denies chest pain, sob, lightheadedness. Exam Const: General: cooperative, healthy appearing and comfortable Orientation/consciousness: oriented to person, oriented to place and oriented to time Resp: Auscultation: clear to auscultation bilaterally, no crackles, no rales, no rhonchi and no wheezes Cardio: Rate: regular rate Rhythm: abnormal rhythm Heart sounds: no murmurs Peripheral pulses: dorsalis pedis present Neuro: General: oriented to person, oriented to place and oriented to time Extrem: Right lower extremity: no edema Left lower extremity: no edema Objective Data Vital Signs Vital Signs: Vital Signs - 24 hr 11/12/22 08:00 11/12/22 09:28 11/12/22 09:28 Temperature Pulse Rate Respiratory Rate Blood Pressure 161/103 H 178/111 H 171/107 H Pulse Oximetry Oxygen Delivery 11/12/22 08:00 11/12/22 14:00 11/12/22 12:00 Temperature 98.3 F Pulse Rate 92 93 104 H Respiratory Rate 18 Blood Pressure 138/91 H Pulse Oximetry 97 Oxygen Delivery 11/12/22 16:00 11/12/22 20:00 11/12/22 22:08 Temperature 97 F L Pulse Rate 91 90 Respiratory Rate 16 Blood Pressure 153/102 H Pulse Oximetry 97 Oxygen Delivery Room Air 11/12/22 22:09 11/12/22 22:15 11/12/22 22:19 Temperature Pulse Rate Respiratory Rate Blood Pressure 160/104 H 156/58 H 146/80 H Pulse Oximetry Oxygen Delivery 11/13/22 00:00 11/13/22 04:00 11/13/22 06:03 Temperature 97.5 F L Pulse Rate 87 87 88 Respiratory Rate 18 Blood Pressure 148/92 H Pulse Oximetry 95 Oxygen Delivery Intake/Output Intake/Output: Intake & Output 11/10/22 11/11/22 11/12/22 11/13/22 23:59 23:59 23:59 23:59 Intake Total 1000 640 Balance 1000 640 Meds/Results Medications: Active Medications Generic Name Dose Route Start Last Admin Trade Name Freq PRN Reason Stop Dose Admin Acetaminophen 650 mg 11/11/22 22:26 Acetaminophen 325 Mg Tablet PO Q6H PRN Mild Pain (1-3) or Fever Albuterol 2 puff 11/12/22 08:00 Albuterol Sulfate (*Sp) Aerosol 1 Puff INHALATION QIDRT PRN Shortness Of Breath Apixaban 2.5 mg 11/11/22 22:20 11/12/22 17:21 Apixaban 2.5 Mg Tablet BY MOUTH 2.5 mg BID ATIF Administration Atorvastatin Calcium 20 mg 11/11/22 22:20 11/12/22 20:05 Atorvastatin 20 Mg Tablet PO 20 mg HS ATIF Administration Diltiazem HCl 180 mg 11/13/22 09:00 Diltiazem Hcl Cd 180 Mg Cap.Er.24h PO DAILY ATIF Lisinopril 10 mg 11/13/22 09:00 Lisinopril 10 Mg Tablet PO QAM ATIF Perflutren Lipid Microsphere 0 ml 11/12/22 11:38 Perflutren Lipid Microsp
[2022-11-13] MEDS: dilTIAZem HCL CD 180 MG CAP.ER.24H PO (08:44)
[2022-11-13] MEDS: lisinopriL 10 MG TABLET PO (08:44)
[2022-11-13] MEDS: APIXABAN 2.5 MG TABLET BY MOUTH (08:44)
--- NOTE | 2022-11-13 14:13 | PM.DS ---
DS: Admitting Diagnosis Discharge Date 11/13/2022 Admitting Diagnosis Hypokalemia DS: Discharge Diagnosis Discharge Diagnosis (1) Hypokalemia: Code(s): E87.6 - Hypokalemia Status: Acute Assessment and Plan: Patient was recently taken off of his daily potassium supplementation as he was having issues with hyperkalemia. Potassium low on presentation at 2.5. Potassium was supplemented and levels stabilized. HCTZ was discontinued and anticipate that potassium levels will remain stable with adequate dietary intake. Potassium supplement not restarted to avoid hyperkalemia. He will need to have a repeat potassium level next week and follow-up with his PCP. (2) Elevated troponin: Code(s): R77.8 - Other specified abnormalities of plasma proteins Status: Acute Assessment and Plan: Elevated up to 0.47 during admission. Seen in consultation by cardiology. Not felt to be secondary to ACS and patient was asymptomatic. Echo completed with abnormal septal motion due to bundle branch block. [place] to be related to hypertension, PAF. Continue outpatient follow-up with his primary repossession agent (3) Chronic hyponatremia: Code(s): E87.1 - Hypo-osmolality and hyponatremia Status: Acute Assessment and Plan: Sodium remained stable. Seems to be consistent with baseline (4) Hypertension: Code(s): I10 - Essential (primary) hypertension Status: Acute Assessment and Plan: Blood pressure initially was elevated. Evaluated by Cardiology, HCTZ was discontinued due to hypokalemia and volume depletion. Lisinopril increased to 10 mg daily and diltiazem increased to 180 mg daily. Continue to monitor blood pressures at home (5) Chronic anticoagulation: Code(s): Z79.01 - skilled nursing (current) use of anticoagulants Status: Acute Assessment and Plan: Continue low-dose Eliquis Plan DS: Summary Hospital Course Hospital Course: Date of admission: 11/11/2022 Date of discharge: 11/13/2022 Antoni Cooley is an 82-year-old male with history of hypertension, proximal atrial fibrillation on chronic anticoagulation, and GERD who presented to the emergency department on 11/11/2022 with complaints of lightheadedness. On presentation to the ED, his vital signs were stable, he was afebrile, sodium 130, potassium 2.5. He was admitted to the hospitalist service for further evaluation and management was seen in consultation by cardiology. Please see above for further details a a patient's potassium was supplemented in HCTZ was discontinued. Slight elevation in troponin with a ventral downward trend, not felt to be due to ACS. Lisinopril and diltiazem increase. He will have repeat potassium as an outpatient and follow-up with his PCP and primary repossession agent. Discussed with the patient worrisome signs and symptoms for which to return and made aware of medication changes. He was in agreement with discharge plans and felt comfortable with return home. He was discharged in hemodynamically stable condition on 11/13/2022. Time Spent with Patient Time attestation: Total time spent providing and/or coordinating discharge services: 45 minutes Time spent: Greater than 30 minutes Exam Narrative: General: Thin, well-appearing 82-year-old male, sitting up in bed, comfortable, NARD Neuro: awake, alert and oriented x4, speech clear, no focal neuro deficits noted HEENMT: normocephalic, atraumatic, EOMI, sclerae anicteric Respiratory: clear to auscultation bilaterally, nonlabored breathing Cardio: regular rate, regular rhythm with S1-S2 Abdomen: nondistended, normoactive bowel sounds, soft, nontender to palpation Extremities: no edema, erythema, or tenderness to palpation Skin: no rashes or lesions, warm and dry Psych: appropriate mood and affect, judgment and insight intact DS: Data Data Completed and Pending Labs on day of discharge: Labs from last 24 hour
== END 2022-11-13 16:15 | disposition home or self-care (01) ==
LOC: ANHED 13:11 → ANH3MEDSUR 17:45
PROVIDERS: Emergency Medicine; Physician Assistant; Admitting Provider Internal Medicine; Emergency Provider Emergency Medicine; PCP Nurse Practitioner; Visit Provider Physician Assistant
DX: E87.6 Hypokalemia (principal); R77.8 Other specified abnormalities of plasma proteins; E87.1 Hypo-osmolality and hyponatremia; I10 Essential (primary) hypertension; E78.5 Hyperlipidemia, unspecified; I48.0 Paroxysmal atrial fibrillation; I48.92 Unspecified atrial flutter; I44.0 Atrioventricular block, first degree; I45.10 Unspecified right bundle-branch block; I35.1 Nonrheumatic aortic (valve) insufficiency; I35.8 Other nonrheumatic aortic valve disorders; K21.9 Gastro-esophageal reflux disease without esophagitis; Z95.2 Presence of prosthetic heart valve; Z79.01 Long term (current) use of anticoagulants; Z79.51 Long term (current) use of inhaled steroids; Z79.899 Other long term (current) drug therapy
CPT/HCPCS: 36415; 71045; 80048; 80053; 81003; 83735; 84484; 85025; 85027; 85610; 85730; 93005; 93306; 96361; 96374; 96375; 99285; A9270; G0378; J3475; J3480; J7030; J7040

== ENCOUNTER 2022-11-20 14:27 | Emergency (ER) | payer MEDICARE, SELFPAY ==
--- NOTE | ~2022-11-20 | XR_ITS ---
EXAMINATION: XR hand RT min 3V DATE: 11/20/2022 15:02 INDICATION: Swelling and erythema TECHNIQUE: Posteroanterior, oblique and lateral views of the right hand were obtained. COMPARISON: None. FINDINGS: No fracture. 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 Polyarticular osteoarthritis, severe at the first carpometacarpal joint and third distal interphalangeal joint. Additional moderate osteoarthritis at the wrist, second metacarpophala ngeal and fourth and fifth distal interphalangeal joints. Mild osteoarthritis at the midcarpal, trisc aphe and many of the remaining metacarpophalangeal and interphalangeal joints. There is secondary deg enerative subarticular cystic changes at the distal ulna, lunate, proximal distal scaphoid and base o f the first metacarpal and heads of the second and fourth metacarpals and third distal phalanx. Addit ional dystrophic calcifications at the radial collateral ligaments of the second-fifth metacarpophala ngeal joints. Small erosions at the radial bases of the third and fifth metacarpals. Diffuse soft tis sarthak swelling about the right hand and wrist. IMPRESSION: 1. 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 2. Small erosions at the base of the third and fifth metacarpals which could be related to inflammato ry arthritis such as rheumatoid although the presence of associated dystrophic calcifications at the adjacent radial collateral ligament complexes and chondrocalcinosis at the wrist suggests possibility of a crystalline arthropathy such as gout. Reviewed, dictated and finalized at [facility]. IMPRESSION: 1. 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 2. Small erosions at the base of the third and fifth metacarpals which could be related to inflammatory arthritis such as rheumatoid although the presence of associated dystrophic calcifications at the adjacent radial collateral ligament complexes and chondrocalcinosis at the wrist suggests possibility of a crystal line arthropathy such as gout.
[2022-11-20 14:29] VITALS: BP 146/92; PULSE 93; RESP 17; TEMP 37.1; O2SAT 99
--- NOTE | 2022-11-20 16:42 | ED.EXTPRO ---
HPI - Extremity Problem General Chief complaint: Extremity Problem,Nontraumatic Stated complaint: R hand swelling Time Seen by Provider: 11/20/22 15:31 History of Present Illness HPI Narrative: Patient is an 82-year-old male presenting with right hand swelling. Patient states that he woke up this morning and noticed that his right hand was more swollen than normal. Denies significant pain. States that he started walking with a cane recently and he does have some soreness along the base of his thumb where he leans on the cane. States that it is a little bit red but no warmth, fevers, recent trauma. He denies any strength or sensory deficits. He denies further complaints. Related Data Home Medications Medication Instructions Recorded Confirmed atorvastatin 20 mg tablet 20 mg PO HS 05/10/19 11/11/22 Eliquis 2.5 mg PO BID 11/11/22 11/11/22 Allergies Allergy/AdvReac Type Severity Reaction Status Date / Time amiodarone Allergy Mild Rash Verified 11/20/22 14:43 Review of Systems Review of Systems: All systems reviewed & are unremarkable except as noted in HPI and below PMFSH Past Medical History Medical History Arthritis Chronic anticoagulation Chronic hyponatremia Gastroesophageal reflux Hypercholesterolemia Hypertension Paroxysmal atrial fibrillation Paroxysmal atrial flutter Surgical History Surgical History History of appendectomy History of cardioversion History of mitral valve replacement with bioprosthetic valve History of tonsillectomy Family History Family History Mother Patient's mother is , Onset Age: 72 Family history unknown, Onset Age: 72 Father Patient's father is , Onset Age: 82 Family history unknown, Onset Age: 73 Social History Social History Social History: Surrogate medical decision maker: Danyell Cooley, daughter. Code status: Full code. Smoking status: Never smoker Second hand tobacco smoke exposure: No Smoking end date: 05/24/1966 Alcohol intake: never Substance use: never Substance use type: does not use Lack of Transportation: No Lack of Food: Never True Current Housing: I Have Housing Concerned About Future Housing: No Difficulty Paying Gas/Electric Bills: No Difficulty Paying for Meds: No Currently Unemployed: No Education: Don't Know Difficulty w/ Childcare or Family Care: No Additional living arrangements comments: The patient lives in [place] with his daughter. Spiritual care concerns: No Exam Narrative: GENERAL: Well-appearing, well-nourished, and in no acute distress. HEAD: Normocephalic, atraumatic. EYES: PERRLA and EOMI. ENT: Nares clear, no rhinorrhea or epistaxis. Mucous membranes moist. NECK: Supple. CHEST: No respiratory distress. HEART: Regular rate and rhythm. ABDOMEN: nondistended EXTREMITIES: Normal range of motion. R hand with mild edema involving dorsal aspect with mild erythema, no tenderness or warmth, ROM intact; radial pulses 2+ SKIN: Warm, dry, no rash. NEURO: No focal deficits. Alert and oriented x3. PSYCH: Normal mood and affect. Course Vital Signs Vital signs: Vital Signs Temperature 98.7 F 11/20/22 14:29 Pulse Rate 93 11/20/22 14:29 Respiratory Rate 17 11/20/22 14:29 Blood Pressure 146/92 H 11/20/22 14:29 Pulse Oximetry 99 11/20/22 14:29 Oxygen Delivery Room Air 11/20/22 14:29 Temperature 98.7 F 11/20/22 14:29 Pulse Rate 93 11/20/22 14:29 Respiratory Rate 17 11/20/22 14:29 Blood Pressure 146/92 H 11/20/22 14:29 Pulse Oximetry 99 11/20/22 14:29 Oxygen Delivery Room Air 11/20/22 14:29 MDM - Extremity (Nontraumatic) MDM Narrative Medical decision making narrative: Patient is
== END 2022-11-20 17:18 | disposition home or self-care (01) ==
PROVIDERS: Emergency Provider Emergency Medicine; PCP Nurse Practitioner
DX: R60.0 Localized edema (principal); I10 Essential (primary) hypertension; I48.0 Paroxysmal atrial fibrillation; Z79.01 Long term (current) use of anticoagulants
CPT/HCPCS: 73130; 99283

== ENCOUNTER 2022-12-14 15:36 | Emergency (ER) | payer MEDICARE, SELFPAY ==
--- NOTE | ~2022-12-14 | CT_ITS ---
Non-contrast CT scan of the Abdomen and Pelvis Clinical indication: Pain, right inguinal hernia Technique: 2.5 mm axial scans were obtained through the abdomen and pelvis without intravenous or or al contrast. Dose reduction technique was used on this scan by utilizing automated exposure control a nd iterative reconstruction technique. The dose-length product (DLP) was 204.47 mGy-cm. Findings: Images through the lung bases reveal no abnormalities. There is no evidence of renal or ureteral calculi. The kidneys and the ureters are nondilated. The liver, spleen, pancreas, gallbladder, and adrenals appear normal. There is no aortic aneurysm. There is no evidence of bowel obstruction. Right inguinal hernia is present, containing a focal loop of small bowel. Images through the pelvis were performed. There is no evidence of ascites or lymphadenopathy. Urinary bladder unremarkable. No pelvic mass evident. No ascites evident. Impression: Right inguinal hernia containing a focal loop of small bowel. No definite bowel wall thickening or burt wel obstruction. No other significant abnormality seen. Reviewed, dictated and finalized at [facility]. Impression: Right inguinal hernia containing a focal loop of small bowel. No definite bowel wall thickening or bowel obstruction. No other significant abnormality seen.
--- NOTE | ~2022-12-14 | US_ITS ---
US scrotum doppler DATE: 12/14/2022 16:19 INDICATION: Testicular pain TECHNIQUE: Real-time and color flow imaging and Doppler analysis of the scrotal contents COMPARISON: None FINDINGS: No testicular mass lesion or torsion is evident. There is an approximately 2.5 mm cyst of the left testicle, benign. 4 x 6 mm left epididymal cyst Bilateral varicoceles are demonstrated. No hydroceles are noted. IMPRESSION: No suspicious testicular mass lesion or testicular torsion 2.5 cm left testicular cyst benign cyst 4 x 6 mm right epididymal cyst Bilateral varicoceles Reviewed, dictated and finalized at [facility]. Reviewed, dictated and finalized at [facility].
[2022-12-14 15:41] VITALS: BP 154/95; PULSE 108; TEMP 35.9; O2SAT 99
--- NOTE | 2022-12-14 17:16 | ED.ABDPAIN ---
HPI - Abdominal Pain General Chief Complaint: Abdominal Pain Stated Complaint: hernia Time Seen by Provider: 12/14/22 17:00 Source: patient Mode of arrival: ambulatory Limitations: no limitations History of Present Illness HPI narrative: Patient is an 82 y/o male, with PMH of AFIB on Eliquis, MVR, HTN, who presents to the ED with c/o R inguinal pain. Patient reports having a known right inguinal hernia. He states over the last month, it has become more bothersome to him. He reports the bulge gets larger and uncomfortable whenever he strains, coughs, and throughout the day while ambulating. He denies a bulge ever becoming firm or nonreducible. Denies any issues with bowel or bladder. Denies constipation. Denies testicular pain or swelling. Patient states he would like to have the hernia repaired, but he is on Eliquis and knows he will need to come off of this for the surgery. He would like to be referred to a surgeon who can fix the hernia. Related Data Home Medications Medication Instructions Recorded Confirmed atorvastatin 20 mg tablet 20 mg PO HS 05/10/19 11/11/22 Eliquis 2.5 mg PO BID 11/11/22 11/11/22 Allergies Allergy/AdvReac Type Severity Reaction Status Date / Time amiodarone Allergy Mild Rash Verified 11/20/22 14:43 Review of Systems Review of Systems: CONSTITUTIONAL: Denies fever, chills, or sweats. CARDIOVASCULAR: Denies chest pain. RESPIRATORY: Denies dyspnea. GASTROINTESTINAL: Denies abdominal pain, nausea, vomiting, constipation, or diarrhea. GENITOURINARY: Denies dysuria or hematuria. MUSCULOSKELETAL: See HPI. NEUROLOGIC: Denies headache, numbness, or weakness. All systems reviewed & are unremarkable except as noted in HPI and below PMFSH Past Medical History Medical History Arthritis Chronic anticoagulation Chronic hyponatremia Gastroesophageal reflux Hypercholesterolemia Hypertension Paroxysmal atrial fibrillation Paroxysmal atrial flutter Surgical History Surgical History History of appendectomy History of cardioversion History of mitral valve replacement with bioprosthetic valve History of tonsillectomy Family History Family History Mother Patient's mother is , Onset Age: 72 Family history unknown, Onset Age: 72 Father Patient's father is , Onset Age: 82 Family history unknown, Onset Age: 73 Social History Social History Social History: Surrogate medical decision maker: Danyell Cooley, daughter. Code status: Full code. Smoking status: Never smoker Second hand tobacco smoke exposure: No Smoking end date: 05/24/1966 Alcohol intake: never Substance use: never Substance use type: does not use Lack of Transportation: No Lack of Food: Never True Current Housing: I Have Housing Concerned About Future Housing: No Difficulty Paying Gas/Electric Bills: No Difficulty Paying for Meds: No Currently Unemployed: No Education: Don't Know Difficulty w/ Childcare or Family Care: No Additional living arrangements comments: The patient lives in [place] with his daughter. Spiritual care concerns: No Exam Narrative: GENERAL: Elderly, thin, frail, non-toxic, in no acute distress. HEAD: Normocephalic, atraumatic. NECK: Supple. No adenopathy, no masses. RESPIRATORY: Airway patent, respirations nonlabored. Clear to auscultation bilaterally, no rales, rhonchi, wheezing. CARDIOVASCULAR: Regular rate and rhythm without murmurs, rubs, or gallops. Peripheral pulses 2+ and equal bilaterally. ABDOMINAL: Soft, no tenderness throughout abdomen, nondistended, no hepatosplenomegaly. Normoactive BS. Large hernia defect in right inguinal canal, soft, easily reducible, nontender. No overlying
== END 2022-12-14 17:48 | disposition home or self-care (01) ==
PROVIDERS: Emergency Provider Physician Assistant; PCP Nurse Practitioner
DX: K40.90 Unilateral inguinal hernia, without obstruction or gangrene, not specified as recurrent (principal); I10 Essential (primary) hypertension; I48.0 Paroxysmal atrial fibrillation; I48.92 Unspecified atrial flutter; E78.00 Pure hypercholesterolemia, unspecified; E87.1 Hypo-osmolality and hyponatremia; K21.9 Gastro-esophageal reflux disease without esophagitis; M19.90 Unspecified osteoarthritis, unspecified site; Z95.2 Presence of prosthetic heart valve; Z87.891 Personal history of nicotine dependence; Z79.01 Long term (current) use of anticoagulants; N44.2 Benign cyst of testis; N50.3 Cyst of epididymis; I86.1 Scrotal varices
CPT/HCPCS: 74176; 76870; 93976; 99284

== ENCOUNTER 2023-02-03 08:12 | Outpatient (CLI) | payer MEDICARE, SELFPAY | END 2023-02-03 08:13 | disposition home or self-care (01) | PROVIDERS: PCP Nurse Practitioner; Visit Provider Surgery | DX: K40.30 Unilateral inguinal hernia, with obstruction, without gangrene, not specified as recurrent (principal); Z01.818 Encounter for other preprocedural examination | CPT/HCPCS: 36415; 86850; 86900; 86901 ==

== ENCOUNTER 2023-02-08 01:42 | Day surgery (SDC) | payer MEDICARE, SELFPAY ==
--- NOTE | 2023-02-01 09:27 | PC.NURSE ---
Report to the Outpatient Waiting Room, entrance under the green pavilion located off [facility], at time __0700 on date _02/08/23 . Planned Procedure Time: __0900 . Time changes happen often and if your time is changed the preop area will call you the afternoon before. - You and your visitor will be asked to self-screen and do not enter if you have any COVID symptoms. - A mask is optional within the hospital at this time. Patients may have clear liquids (water, carbonated beverages, clear teas, apple juice) until 3 hours prior to surgery with a maximum of 20 ounces. - No food from midnight until time of surgery - Infants may have breast milk until 4 hours before surgery, infant formula 6 hours prior to surgery. - Children will be allowed to drink immediately following surgery. If applicable, please bring a bottle or sippy cup to assist with drinking. Juice, water, soda, and popsicles are readily available. For infants on formula, please bring formula the day of surgery. Pacifiers are allowed. Take the following medications with a SIP of water the morning of surgery: ___DILTIAZEM,,INHALER IF NEEDED DO NOT STOP ANY OF YOUR OTHER PRESCRIPTION MEDICATIONS PRIOR TO SURGERY ?EXCEPT THE FOLLOWING Medications to discontinue per physician ELIQUIS __HOLD 3 DAYS PRE OP PER DR ANDRE IMPROVEMENT LEADER.LAST DOSE 02/04/23 HIBICLENS SHOWER MORNING OF SURGERY Please no make-up, nail surinamese, hairspray, perfume, deodorant, or body powder the day of surgery. No jewelry (including any body piercings) or valuables the day of surgery, leave them at home. Please take a shower or bath the night before, or the morning of, surgery with an antibacterial soap. Wear comfortable, loose fitting clothing. Children are encouraged to wear pajamas. - Jewelry must be removed prior to entering the operating room. Rings and piercings that are not removed may be cut off. - The hospital will not accept responsibility for valuables. - Please leave all valuables, including medications, at home the day of surgery. If you are going home after surgery, a licensed special education bus driver must drive you home. - NO public transportation without another adult if you receive anesthesia. - We recommend that an adult stay with you for 24 hours following discharge. - We also recommend that you do not drive, make important decision, drink alcoholic beverages, or take any drugs that were not prescribed by your health care provider for at least 24 hours after your discharge time. For Pediatric surgeries, we recommend two adults accompany the child home. Follow any additional instructions given to you from your surgeon. If you or anyone in your household have experienced Covid symptoms in the past week, please notify your surgeon or the nurse liaison at the phone number below for possible testing. Telephone instructions given to ___PT and asked if any additional questions and then verbalized understanding. Patient advised to call surgeon office or pre surgery nurse liaison [phone] if any additional questions.
[2023-02-01 09:39] VITALS: BMI 19.6
[2023-02-08] VITALS (11 sets, daily range): BP systolic 102–158; BP diastolic 61–103; PULSE 66–89; RESP 16–18; TEMP 36.2–36.4; O2SAT 95–100; BMI 16.1
[2023-02-08] MEDS: LACTATED RINGERS 1,000 ML 30 ML IV CONT ×2 (07:55→11:31)
[2023-02-08] MEDS: ACETAMINOPHEN 500 MG TABLET 1000 MG PO (08:09)
[2023-02-08] MEDS: KETOROLAC 15 MG/ML VIAL (*BKC) IV PUSH (08:10)
--- NOTE | 2023-02-08 08:39 | WPDANESEPPF ---
Anes - Initial Pre Proc Eval Procedure: Operation Date: 02/08/23 09:00 Proposed Procedures p Robotic Assisted Laparoscopic Bilateral Inguinal Hernia Repair with Mesh - Joan Ray MD Date/Time: 02/08/23 08:39 Surgeon: Joan Ray MD Pre Op Diagnosis: Bilateral Inguinal Hernia Patient Data Age: 82 Gender: M Height: 1.83 m Weight: 65.8 kg Allergies Allergy/AdvReac Type Severity Reaction Status Date / Time amiodarone Allergy Mild Rash Verified 02/01/23 09:20 Home Medications Medication Instructions Recorded Confirmed Type atorvastatin 20 mg tablet 20 mg PO HS 05/10/19 02/01/23 History Eliquis 2.5 mg PO BID 11/11/22 02/01/23 History diltiazem HCl 180 mg 180 mg PO DAILY #30 caps 11/13/22 02/01/23 Rx capsule,extended release 24 hr, controlled lisinopril 10 mg tablet 10 mg PO QAM #30 tabs 11/13/22 02/01/23 Rx albuterol sulfate 90 mcg/actuation 2 puff inhalation BID 02/01/23 02/01/23 History aerosol inhaler (Proventil HFA) Patient hx anesthesia problems: none Family hx anesthesia problems: none Results Review: All pre-operative results and documents have been reviewed as part of the pre-operative evaluation. [facility]LY [facility] Past Medical History Medical History Arthritis Chronic anticoagulation Chronic hyponatremia Gastroesophageal reflux Hypercholesterolemia Hypertension Paroxysmal atrial fibrillation Paroxysmal atrial flutter Surgical History Surgical History History of appendectomy History of cardioversion History of mitral valve replacement with bioprosthetic valve History of tonsillectomy Family History Family History Mother Patient's mother is , Onset Age: 72 Family history unknown, Onset Age: 72 Father Patient's father is , Onset Age: 82 Family history unknown, Onset Age: 73 Social History Social History (Updated 12/30/22 @ 09:40 by Shavon Hennessy CMA) Social History: Surrogate medical decision maker: Danyell Cooley, daughter. Code status: Full code. Smoking packs per day: 1 Smoking cigarettes per day: 20.0 Years smoked: 5 Smoking pack-years: 5.00 Smoking status: Former smoker Tobacco type: cigarettes Second hand tobacco smoke exposure: No Smoking end date: 05/24/66 Alcohol intake: never Substance use: never Substance use type: does not use Lack of Transportation: No Lack of Food: Never True Current Housing: I Have Housing Concerned About Future Housing: No Difficulty Paying Gas/Electric Bills: No Difficulty Paying for Meds: No Currently Unemployed: No Education: Don't Know Difficulty w/ Childcare or Family Care: No Living arrangements: with family Additional living arrangements comments: The patient lives in [place] with his daughter. Spiritual care concerns: No Anes - Eval Final PreProcedure Day of Procedure 02/08/23 08:39 Patient weight: thin Heart: irregular rhythm Lungs: clear to auscultation Airway: Mallampati scale class II (poor dentition) Neurological: alert and oriented Last oral intake: >/= 8 hours ASA classification: III Emergent: no Anesthetic plan: proceed Anesthesia type and monitoring: general ETT and standard monitoring Results Review: All pre-operative results and documents have been reviewed as part of the pre-operative evaluation. Informed Consent: The patient's anesthetic plan and its attendant risks and benefits were discussed with the patient/family/POA. Questions were solicited and answers provided to the satisfaction of the patient/family/POA.
--- NOTE | 2023-02-08 08:43 | WPDHPUPDATE1 ---
History and Physical Update Update Date/Time: 02/08/23 08:43 History and Physical has been reviewed, including an updated exam of the patient. There are NO changes in the patient's condition. Risks, benefits, and alternatives have been discussed and questions answered. Patient agrees to proceed with procedure.
--- NOTE | 2023-02-08 08:50 | PM.IMHP ---
H&P: HPI History of Present Illness Date/Time: 02/08/23 08:50 Chief Complaint: bilateral inguinal hernia Narrative: Mr. Cooley presents to the office for evaluation.? He was recently in [facility] ER on 12/14/2022 with c/o right inguinal pain.? Had a known right inguinal hernia, but reported that over the last month, it's become more bothersome.? Typically bulge is reducible, but occasionally finds it difficult to reduce. Scrotal ultrasound was performed and showed: IMPRESSION:?No suspicious testicular mass lesion or testicular torsion 2.5 cm left testicular cyst benign cyst 4 x 6 mm right epididymal cyst Bilateral varicoceles? CT scan also done in the ER showing: Right inguinal hernia containing a focal loop of small bowel. No definite bowel wall thickening or bowel obstruction. He has recently developed intermittent bouts of constipation, mostly when the hernia is difficult to reduce.? Once right groin hernia reduces, he passes large amounts of stool.? He has a.fib and is on Eliquis.? Followed by Dr. Anthony Cooley at [facility] and is scheduled to be seen in 01/2023.? Review of Systems Review of Systems: All systems reviewed & are unremarkable except as noted in HPI and below PMFSH Past Medical History Medical History Arthritis Chronic anticoagulation Chronic hyponatremia Gastroesophageal reflux Hypercholesterolemia Hypertension Paroxysmal atrial fibrillation Paroxysmal atrial flutter Surgical History Surgical History History of appendectomy History of cardioversion History of mitral valve replacement with bioprosthetic valve History of tonsillectomy Family History Family History Mother Patient's mother is , Onset Age: 72 Family history unknown, Onset Age: 72 Father Patient's father is , Onset Age: 82 Family history unknown, Onset Age: 73 Social History Social History Social History: Surrogate medical decision maker: Danyell Cooley, daughter. Code status: Full code. Smoking packs per day: 1 Smoking cigarettes per day: 20.0 Years smoked: 5 Smoking pack-years: 5.00 Smoking status: Former smoker Tobacco type: cigarettes Second hand tobacco smoke exposure: No Smoking end date: 05/24/66 Alcohol intake: never Substance use: never Substance use type: does not use Lack of Transportation: No Lack of Food: Never True Current Housing: I Have Housing Concerned About Future Housing: No Difficulty Paying Gas/Electric Bills: No Difficulty Paying for Meds: No Currently Unemployed: No Education: Don't Know Difficulty w/ Childcare or Family Care: No Living arrangements: with family Additional living arrangements comments: The patient lives in [place] with his daughter. Spiritual care concerns: No Meds Home Medications and Allergies Home Medications Medication Instructions Recorded Confirmed Type atorvastatin 20 mg tablet 20 mg PO HS 05/10/19 02/01/23 History Eliquis 2.5 mg PO BID 11/11/22 02/01/23 History diltiazem HCl 180 mg 180 mg PO DAILY #30 caps 11/13/22 02/01/23 Rx capsule,extended release 24 hr, controlled lisinopril 10 mg tablet 10 mg PO QAM #30 tabs 11/13/22 02/01/23 Rx albuterol sulfate 90 mcg/actuation 2 puff inhalation BID 02/01/23 02/01/23 History aerosol inhaler (Proventil HFA) Allergies Allergy/AdvReac Type Severity Reaction Status Date / Time amiodarone Allergy Mild Rash Verified 02/08/23 08:46 Exam Const: General: cooperative, comfortable and no acute distress Resp: Auscultation: clear to auscultation bilaterally Cardio: Rate: regular rate Rhythm: regular rhythm GI: Inspection: normal to inspection and non-distended GI Palp: No abdominal tenderness, Yes Soft to palpation, No Ten
[2023-02-08] MEDS: ceFAZolin 2 GM/D5W 50 ML 2 GM/50 ML BAG IVPB (09:00)
[2023-02-08] MEDS: BUPIVACAINE/EPINEPHRINE 0.5% 50 ML VIAL 30 ML INFILTRATE (09:39)
--- NOTE | 2023-02-08 10:26 | W.PM.PROC2 ---
Procedure Note - Detailed Date of Procedure 02/08/23 Pre-op Diagnosis incarcerated right inguinal herrnia Post-op Diagnosis Same Procedure Performed robotic assisted incarcerated right inguinal hernia repair with mesh Surgeon Joan Ray MD Anesthesia General Indications 82-year-old male with progressively worsening right inguinal hernia over the last few years Findings indirect right inguinal hernia incarcerated with loop of small intestine Description of Procedure Patient was brought into the operating room and placed in the supine position. After adequate induction of general anesthesia, the patient was prepped and draped in normal sterile fashion. A time-out was then done to verify the patient's identity, as well as the procedure being performed. Began by making a 8 mm incision in the supraumbilical region, a Veress needle was then placed into the peritoneal cavity. CO2 gas was then insufflated and after adequate pneumoperitoneum was achieved, the Veress needle was removed. I then placed an 8 mm trocar through this incision. I then placed the endoscope through this trocar site and under direct visualization placed 2 further 8 mm ports in the right and left mid abdomen. The [employer] robot was then docked to the 3 trocar sites. I then scrubbed out and went to the robotic console. Upon examining the pelvis, it was noted that the patient had a large right inguinal hernia. The left side was examined and no hernia defect was noted, although he clinically had a small defect on exam. The hernia had a loop of small intestine incarcerated in the defect. This was easily reduced and the bowel was noted to be viable. I began by making a preperitoneal flap approximately 6 cm superior to the defect. This flap was carried medially past the umbilical ligaments in laterally to the transversalis. It then began dissection of my medial compartment taking this down to the pubic tubercle. I then began the lateral dissection taking this down to the transversalis fascia. Once these compartments were achieved, I began dissection around the cord structures. A large indirect hernia was noted at this point. Using careful dissection, was able to reduce indirect hernia sac off the cord structures. Once this was adequately done, I went ahead and placed a large piece of 3D Max mesh into the abdominal cavity. The mesh was carefully positioned, centering the center of the mesh over the indirect defect. Once this was done, was very satisfied with our repair. Using 3-0 Vicryl sutures, I tacked the mesh medially to Andres's ligament. Two lateral sutures were placed from the mesh to the transversalis fascia. I then closed the peritoneal flap with a running 2.0 V Lock suture. Given the patient's body habitus and comorbid conditions the decision was made to abort the left sided repair. The abdomen was then desufflated, and all ports were removed. All incisions were then closed with the 4.0 monocryl suture. Dermabond was placed on each wound. The patient tolerated the procedure well, was extubated in the operating room postoperatively, and will now be transferred to the recovery room in stable condition. Implants large 3DMax mesh Estimated Blood Loss 10 Drains No Packing No Pathology None sent Complications No immediate complications Condition Stable Disposition PACU [facility] Billing Surgery - Charge Forward: Surgery Billing
[2023-02-08] MEDS: oxyCODONE HCL (*CRX) 5 MG TAB IR PO (12:29)
--- NOTE | 2023-02-08 15:01 | SUR.PHASEII ---
1420 PT ASSISTED BY RN TO GET DRESSED.
== END 2023-02-08 14:25 | disposition home or self-care (01) ==
PROVIDERS: PCP Nurse Practitioner; Visit Provider Surgery
PROC: 8E0Y4CZ Robotic Assisted Procedure of Lower Extremity, Percutaneous Endoscopic Approach (ICD-10-PCS; CPT 49650; principal; 2023-02-08 09:00)
DX: K40.30 Unilateral inguinal hernia, with obstruction, without gangrene, not specified as recurrent (principal); I48.0 Paroxysmal atrial fibrillation; I48.92 Unspecified atrial flutter; E78.00 Pure hypercholesterolemia, unspecified; Z79.51 Long term (current) use of inhaled steroids; Z79.01 Long term (current) use of anticoagulants; Z95.2 Presence of prosthetic heart valve; Z87.891 Personal history of nicotine dependence
CPT/HCPCS: 49650; S2900; 36415; 86850; 86900; 86901; A9270; C1781; J0330; J0690; J1100; J1885; J2405; J2704; J3010; J7030; J7120

== ENCOUNTER 2023-06-19 11:12 | Emergency (ER) | payer MEDICARE, SELFPAY ==
[2023-06-19] VITALS (14 sets, daily range): BP systolic 152–175; BP diastolic 101–115; PULSE 82–100; RESP 15–23; TEMP 36.2–36.6; O2SAT 98–100
--- NOTE | ~2023-06-19 | XR_ITS ---
XR chest 1V portable 06/19/2023 12:54 Indication: Dizziness Procedure: AP portable chest Comparison: Comparison to multiple prior studies sequentially, with oldest reviewed study dated 07/19. Findings: Status post median sternotomy for CABG. Cardiomegaly. Patchy bilateral airspace disease, co mpatible with pneumonia. No significant effusion, edema or pneumothorax. Impression: 1: Patchy bilateral airspace disease, compatible with pneumonia. Reviewed, dictated and finalized at location B. [employer] MAINTENANCE Impression: 1: Patchy bilateral airspace disease, compatible with pneumonia.
--- NOTE | 2023-06-19 11:22 | ECG_ITS ---
Measurements Intervals [place] Rate: 94 P: DC: 0 QRS: -8 QRSD: 156 T: 35 QT: 398 QTc: 499 Interpretive Statements ATRIAL FIBRILLATION VENTRICULAR PREMATURE COMPLEX RIGHT BUNDLE BRANCH BLOCK MINIMAL Q WAVES- LATERAL LEADS ABNORMAL ECG COMPARED TO ECG 11/12/2022 05:01:27 NO SIGNIFICANT CHANGES Electronically Signed On 06-19-2023 16:04:37 JUDICIAL ADMINISTRATIVE ASSISTANT by Gopi Neal D.O.
[2023-06-19 12:05] LABS: Basophils Absolute Auto 0.1 K/mm3 (0.0-0.1); Basophils Percent Auto 1.3 % (0.2-1.2); Eosinophils Absolute Auto 0.1 K/mm3 (0-0.3); Eosinophils Percent Auto 1.4 % (0-4.4); Hematocrit 40.4 % (42.0-52.0); Hemoglobin 13.7 g/dL (14.0-18.0); Immature Granulocyte Absolute 0.03 K/mm3 (0.00-0.031); Immature Granulocyte Percent A 0.5 % (0-0.5); Lymphocytes Absolute Auto 0.68 K/mm3 (0.9-3.2); Lymphocytes Percent Auto 12.2 % (18.3-44.2); Mean Corpuscular HGB Conc 33.9 g/dl (32-36); Mean Corpuscular Hemoglobin 31.3 pg (26-34); Mean Corpuscular Volume 92.2 fl (80-100); Mean Platelet Volume 9.2 fl (7.4-10.4); Monocytes Absolute Auto 0.6 K/mm3 (0.1-0.6); Monocytes Percent Auto 9.9 % (2.6-8.5); Neutrophils Absolute Auto 4.2 K/mm3 (1.3-6.7); Neutrophils Percent Auto 74.7 % (45.5-73.1); Platelet Count Result 217 k/mm3 (150-375); Red Blood Count 4.38 M/mm3 (4.6-6.20); Red Cell Distribution Width 12.6 % (11.5-14.5); White Blood Count 5.6 K/mm3 (4.5-10.0)
[2023-06-19 12:15] LABS: Alanine Aminotransferase 26 U/L (6-50); Albumin Level 4.1 g/dL (3.5-5.1); Alkaline Phosphatase 134 U/L (38-126); Anion Gap 9 mmol/L (8-16); Aspartate Amino Transferase 30 U/L (17-59); Bilirubin,Total 1.7 mg/dL (0.2-1.3); Blood Urea Nitrogen 14 mg/dL (9-20); Calcium 9.2 mg/dL (8.4-10.2); Carbon Dioxide 21 mmol/L (22-30); Chloride 101 mmol/L (98-107); Estimated Glomerular Filt Rate > 60; Glucose 106 mg/dL (65-110); Potassium 4.4 mmol/L (3.4-5.0); Sodium 131 mmol/L (137-145)
[2023-06-19 12:27] LABS: Troponin I 0.042 ng/mL (0.000-0.034)
--- NOTE | 2023-06-19 13:19 | ED.DIZZY ---
HPI - Dizziness General Chief Complaint: Dizziness <SAQIB Masters Last Filed: 06/19/23 19:36> Stated Complaint: Dizzy <SAQIB Masters Last Filed: 06/19/23 19:36> Time Seen by Provider: 06/19/23 11:54 <SAQIB Masters Last Filed: 06/19/23 19:36> History of Present Illness HPI Narrative: 82-year-old male with history of atrial fibrillation chronically anticoagulated on Eliquis, GERD, electrolyte derangements, hyperlipidemia reports for evaluation for lightheadedness when going from a sitting to standing position. Patient states yesterday when he woke up, he got out of bed very quickly and felt dizzy. States the results are for few seconds and felt fine the remainder of the day. States this morning the same thing happened when he tried to get out of bed. He states the dizziness shortly resolved afterwards. He denies LOC. States he contacted his PCP who advised to go to the ER to check his electrolytes. The patient denies chest pain, shortness of breath, abdominal pain, nausea vomiting, diarrhea, fever, cough congestion, urinary complaints. Denies vision changes, focal numbness or weakness. The patient states he is currently asymptomatic and is not feeling dizzy. <SAQIB Masters Last Filed: 06/19/23 19:36> Related Data Home Medications: Home Medications Medication Instructions Recorded Confirmed atorvastatin 20 mg tablet 20 mg PO HS 05/10/19 02/24/23 Eliquis 2.5 mg PO BID 11/11/22 02/24/23 albuterol sulfate 90 mcg/actuation 2 puff inhalation BID 02/01/23 02/24/23 aerosol inhaler (Proventil HFA) <SAQIB Masters Last Filed: 06/19/23 19:36> Allergies/Adverse Reactions: Allergies Allergy/AdvReac Type Severity Reaction Status Date / Time amiodarone Allergy Mild Rash Verified 02/24/23 10:17 <SAQIB Masters Last Filed: 06/19/23 19:36> Review of Systems Review of Systems: CONSTITUTIONAL: Denies fever, chills, or sweats. EYES: Denies visual changes, redness, or discharge. ENT: Denies rhinorrhea, congestion, sore throat, or otalgia. CARDIOVASCULAR: Denies chest pain, palpitations, or edema. RESPIRATORY: Denies cough or dyspnea. GASTROINTESTINAL: Denies abdominal pain, nausea, vomiting, or diarrhea. GENITOURINARY: Denies dysuria or hematuria. SKIN: Denies rash or itching. MUSCULOSKELETAL: Denies back pain, joint pain, or myalgia. NEUROLOGIC: See HPI PSYCHIATRIC: Denies anxiety or depression. <Fabienne Penaloza PA-C - Last Filed: 06/19/23 19:36> [facility] Past Medical History Medical History: Medical History Arthritis Chronic anticoagulation Chronic hyponatremia Gastroesophageal reflux Hypercholesterolemia Hypertension Paroxysmal atrial fibrillation Paroxysmal atrial flutter <Fabienne Penaloza PA-C - Last Filed: 06/19/23 19:36> Surgical History Surgical History: Surgical History History of appendectomy History of cardioversion History of mitral valve replacement with bioprosthetic valve History of tonsillectomy Hx of inguinal hernia repair robotic assisted incarcerated right inguinal hernia repair with mesh on 02/08/23 PDC <Fabienne Penaloza PA-C - Last Filed: 06/19/23 19:36> Family History Family History: Family History Mother Patient's mother is , Onset Age: 72 Family history unknown, Onset Age: 72 Father Patient's father is , Onset Age: 82 Family history unknown, Onset Age: 73 <Fabienne Penaloza PA-C - Last Filed: 06/19/23 19:36> Social History Social History: Social History Social History: Surrogate medical decision maker: Danyell Cooley, daughter. Code status: Full code. Smoking packs per day: 1 Smoking c
--- NOTE | 2023-06-19 15:08 | ECG_ITS ---
Measurements Intervals [place] Rate: 92 P: [place]: 0 QRS: -22 QRSD: 154 T: 24 QT: 386 QTc: 479 Interpretive Statements ATRIAL FIBRILLATION VENTRICULAR PREMATURE COMPLEX RIGHT BUNDLE BRANCH BLOCK MINIMAL Q WAVES- LATERAL LEADS BASELINE ARTIFACT- I, II, III, AVF ABNORMAL ECG COMPARED TO ECG 06/19/2023 11:28:18 NO SIGNIFICANT CHANGES Electronically Signed On 06-19-2023 16:13:50 CHIEF STRATEGY OFFICER by Gopi Neal D.O.
[2023-06-19 15:40] LABS: Influenza A QL RT-PCR Negative (Negative); Influenza B QL RT-PCR Negative (Negative); RSV RNA, RT-PCR Negative (Negative); SARS-CoV-2 RNA PCR Negative (Negative)
[2023-06-19 16:41] LABS: Troponin I 0.041 ng/mL (0.000-0.034)
[2023-06-19 17:27] LABS: Appearance Urine Clear (Clear); Bilirubin Urine Negative (Negative); Blood Urine Negative (Negative); Color Urine Yellow (Yellow); Glucose Urine UA Negative (Negative); Ketones Urine 1+ mg/dL (Negative); Leukocyte Esterase Ur Negative LEU/UL (Negative); Nitrate Urine Negative (Negative); Protein Urine Negative (Negative); Specific Grav Ur 1.011 (1.001-1.035); pH Urine 6.5 (5.0-9.0)
[2023-06-19 17:34] LABS: Add Urine Microscopic? NO
[2023-06-19] MEDS: AMOXICILLIN/CLAVULANATE K 875-125 MG TAB 1 TABLET PO (18:21)
[2023-06-19] MEDS: AZITHROMYCIN 250 MG TABLET 500 MG PO (18:21)
== END 2023-06-19 18:40 | disposition home or self-care (01) ==
PROVIDERS: Emergency Medicine; Emergency Provider Physician Assistant; PCP Nurse Practitioner
DX: J18.9 Pneumonia, unspecified organism (principal); R42 Dizziness and giddiness; Z20.822 Contact with and (suspected) exposure to COVID-19; I48.0 Paroxysmal atrial fibrillation; I48.92 Unspecified atrial flutter; I10 Essential (primary) hypertension; E78.00 Pure hypercholesterolemia, unspecified; K21.9 Gastro-esophageal reflux disease without esophagitis; Z87.891 Personal history of nicotine dependence; Z79.01 Long term (current) use of anticoagulants; Z95.2 Presence of prosthetic heart valve; I49.3 Ventricular premature depolarization; I45.10 Unspecified right bundle-branch block
CPT/HCPCS: 36415; 71045; 80053; 81003; 84484; 85025; 87637; 93005; 99284; A9270

== ENCOUNTER 2024-06-12 08:43 | Emergency (ER) | payer MEDICARE, SELFPAY ==
[2024-06-12 09:04] VITALS: BP 176/108; PULSE 94; RESP 16; TEMP 36.1; O2SAT 95
--- NOTE | 2024-06-12 09:28 | ED_ITS ---
HPI - URI/Sore Throat General Chief Complaint: Upper Respiratory Infection Stated Complaint: sinus infection Time Seen by Provider: 06/12/24 09:20 Source: patient and RN notes reviewed Mode of arrival: ambulatory Limitations: no limitations History of Present Illness HPI Narrative: Patient presents today complaining of a one-week history of cough and postnasal drainage that is primarily only present at night. Denies shortness of breath, fever, any additional symptoms. He has tried no pwcf-rqx-oenpunt medication for symptoms prior to arrival. Related Data Home Medications ?Medication ?Instructions ?Recorded ?Confirmed ?Last Taken ?Type atorvastatin 20 mg tablet 20 mg PO HS 05/10/19 02/24/23 11/10/22 History Eliquis 2.5 mg PO BID 11/11/22 02/24/23 02/04/23 History albuterol sulfate 90 mcg/actuation 2 puff inhalation BID 02/01/23 02/24/23 Unknown History aerosol inhaler (Proventil HFA) Allergies Allergy/AdvReac Type Severity Reaction Status Date / Time amiodarone Allergy Mild Rash Verified 02/24/23 10:17 Review of Systems Review of Systems: CONSTITUTIONAL: Denies body aches, fever, chills, or sweats. EYES: Denies visual changes, redness, or discharge. ENT: Denies rhinorrhea, congestion, sore throat, or otalgia.+ postnasal drip CARDIOVASCULAR: Denies chest pain, palpitations, or edema. RESPIRATORY: Denies dyspnea.+ cough GASTROINTESTINAL: Denies abdominal pain, nausea, vomiting, or diarrhea. GENITOURINARY: Denies dysuria or hematuria. SKIN: Denies rash, itching, or wounds. MUSCULOSKELETAL: Denies back pain, joint pain, or myalgia. NEUROLOGIC: Denies headache, numbness, tingling, or weakness. PSYCH: Denies depression or anxiety. FORMERLY [facility] Past Medical History Medical History Chronic hyponatremia Gastroesophageal reflux Hypertension Chronic anticoagulation Paroxysmal atrial flutter Paroxysmal atrial fibrillation Arthritis Hypercholesterolemia Surgical History Surgical History Hx of inguinal hernia repair robotic assisted incarcerated right inguinal hernia repair with mesh on 02/08/23 PDC History of tonsillectomy History of mitral valve replacement with bioprosthetic valve History of cardioversion History of appendectomy Family History Family History Mother Patient's mother is , Onset Age: 72 Family history unknown, Onset Age: 72 Father Patient's father is , Onset Age: 82 Family history unknown, Onset Age: 73 Social History Social History Social History: Surrogate medical decision maker: Danyell Cooley, daughter. Code status: Full code. Smoking packs per day: 1 Smoking cigarettes per day: 20.0 Years smoked: 5 Smoking pack-years: 5.00 Smoking status: Former smoker Tobacco type: cigarettes Second hand tobacco smoke exposure: No Smoking end date: 05/24/66 Alcohol intake: never Substance use: never Substance use type: does not use Lack of Transportation: No Lack of Food: Never True Current Housing: I Have Housing Concerned About Future Housing: No Difficulty Paying Gas/Electric Bills: No Difficulty Paying for Meds: No Currently Unemployed: No Education: Don't Know Difficulty w/ Childcare or Family Care: No Living arrangements: with family Additional living arrangements comments: The patient lives in [place] with his daughter. Spiritual care concerns: No Comments At time of signature, I have reviewed and agree with nursing past medical, surgi danielle, social and family history unless otherwise noted. Please see nursing chart for further information. There is no relevant family history pertinent to the presenting complaint Exam Narrative: GENERAL: Well-appearing, well-nourished, and in no acute distress. HEAD: Normocephalic, atraumatic. EYES: EOMI. No redness or drainage. Conjunctivae normal. ENT: Mucous membranes pink and moist. Nares clear. No rhinorrhea. TMs normal bilaterally. Throat normal with large amount of white postnasal drainage. Uvula midline. NECK: Normal AROM. Supple. No lymphadenopathy. CHEST: No respiratory distress. Clear to auscultation. HEART: Regular rate and rhythm. No murmur appreciated. EXTREMITIES: Normal range of motion. No edema. SKIN: Warm, dry, no rash. Capillary refill normal. Normal skin turgor. NEURO: No focal deficits. Alert and oriented x3. Gait steady. PSYCH: Normal affect. No signs of depression or anxiety. Course Course Level of Care: Express Care Visit Vital Signs Vital signs: Vital Signs Temperature 96.9 F L 06/12/24 09:04 Pulse Rate 94 06/12/24 09:04 Respiratory Rate 16 06/12/24 09:04 Blood Pressure 176/108 H 06/12/24 09:04 Pulse Oximetry 95 06/12/24 09:04 Oxygen Delivery Room Air 06/12/24 09:04 Temperature 96.9 F L 06/12/24 09:04 Pulse Rate 94 06/12/24 09:04 Respiratory Rate 16 06/12/24 09:04 Blood Pressure 176/108 H 06/12/24 09:04 Pulse Oximetry 95 06/12/24 09:04 Oxygen Delivery Room Air 06/12/24 09:04 Reviewed MDM - URI/Sore Throat MDM Narrative Medical decision making narrative: Symptoms likely viral in etiology. Discussed guvm-cuj-gjrwjiz medication use and duration of illness. Recommend patient consider taking some Mucinex. He would like this sent in as a prescription. Anticipatory guidance given. Patient states he has an appointment with his PCP set up for tomorrow. Differential Diagnosis Differential diagnosis: Likely upper respiratory infection, sinusitis, viral infection and bronchitis Critical Care Time Critical Care Time Critical Care Time: No Discharge Plan Discharge Clinical Impression: Upper respiratory infection Qualifiers: URI type: unspecified URI Qualified Code(s): J06.9 - Acute upper respiratory infection, unspecified Patient Disposition: Home, Self-Care Condition: Stable Instructions: Upper Respiratory Infection (DC) Additional Instructions: Your symptoms are likely due to a viral illness, which is not treated with antibiotics. Virus symptoms can last for up to 7-10days. Take Tylenol for pain or fever. Take Mucinex to help with your cough and postnasal drip. You may also consider a steroid nasal spray such as Flonase or saline nasal spray. Rest and stay hydrated. Follow up with your PCP in 3-5 days if symptoms are not improving. Go to the ER immediately if you develop shortness of breath, difficulty swallowing, or any other concerning symptoms. Your blood pressure was elevated above 120/80 today at Urgent Care. This puts you above the threshold for follow up. Please schedule a followup visit with your personal physician as soon as possible, for further evaluation and treatment. Even blood pressure exceeding 120/80 may indicate pre-hypertension. Patient Language: Israeli Prescriptions: New guaifenesin [Mucinex] 600 mg tablet extended release 12hr 600 mg PO BID Qty: 20 0RF No Action atorvastatin 20 mg tablet 20 mg PO HS Eliquis 2.5 mg tablet 2.5 mg PO BID diltiazem HCl 180 mg Capsule,Ext.Rel 24h Degradable 180 mg PO DAILY Qty: 30 0RF lisinopril 10 mg Tablet 10 mg PO QAM Qty: 30 0RF albuterol sulfate [Proventil HFA] 90 mcg/actuation HFA aerosol inhaler 2 puff inhalation BID hydrocodone-acetaminophen 5-325 mg tablet 1 tablet PO Q6H PRN (Reason: pain) Qty: 20 0RF docusate sodium [Colace] 100 mg capsule 100 mg PO BID Qty: 20 0RF amoxicillin-pot clavulanate 875-125 mg tablet 1 tablet PO Q12H Qty: 14 0RF azithromycin 250 mg tablet 250 mg PO DAILY 4 Days Qty: 4 0RF Rx Instructions: start on day 2 of therapy Follow-up/Referrals: Lani,TAJ Lazaro [Primary Care Provider] - Time of Disposition: 09:33
[2024-06-12 09:43] VITALS: BP 146/92
== END 2024-06-12 09:40 | disposition home or self-care (01) ==
PROVIDERS: Emergency Provider Nurse Practitioner; PCP Nurse Practitioner
DX: J06.9 Acute upper respiratory infection, unspecified (principal); I10 Essential (primary) hypertension; I48.0 Paroxysmal atrial fibrillation; E78.00 Pure hypercholesterolemia, unspecified; M19.90 Unspecified osteoarthritis, unspecified site; K21.9 Gastro-esophageal reflux disease without esophagitis; Z95.2 Presence of prosthetic heart valve; Z87.891 Personal history of nicotine dependence; Z79.01 Long term (current) use of anticoagulants
CPT/HCPCS: 99213; G0463

== ENCOUNTER 2024-07-01 01:51 | Emergency (ER) | payer MEDICARE, SELFPAY ==
[2024-07-01] VITALS (9 sets, daily range): BP systolic 113–155; BP diastolic 74–98; PULSE 81–92; RESP 14–23; TEMP 36.5; O2SAT 92–100
--- NOTE | ~2024-07-01 | CT_ITS ---
EXAMINATION: CTA chest abdomen pelvis DATE: 07/01/2024 06:35 INDICATION: Chest pain radiating to the back. TECHNIQUE: Computed tomographic angiography (CTA) of the chest, abdomen, and pelvis was performed wit h 100 mL Omnipaque-350 intravenous contrast. Automated exposure control and iterative reconstruction technique were employed. The dose-length product was 445.66 mGy-cm. Maximum intensity projection 3D-r econstructions of the aorta and other arteries were constructed by the technologist on a separate wor kstation. COMPARISON: Chest CT at 3:54 AM FINDINGS: CHEST CTA: There is smooth septal thickening lungs, consistent with mild pulmonary edema. A calcified left lung nodule and calcified left hilar lymph nodes are consistent with old granulomatous disease. There is m ild atelectasis bilaterally. There are small pleural effusions. Cardiomegaly is noted. There are calc ifications of the aortic valve. There are coronary artery calcifications. No pericardial effusion. Th ere is no pulmonary embolus. 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 The mediastinum is enlarged and measures soft tissue attenuation, consistent with extensive hematom a. There is severe thoracic spondylosis. ABDOMEN AND PELVIS CTA: The liver and gallbladder are normal. Calcifications in the spleen are consistent with old granulomat ous disease. Right adrenal gland is normal. There is a chronic 16 mm mass in left adrenal gland, like ly an adenoma. The kidneys are normal. There are no dilated loops of bowel. The appendix is not visua lized. Aortic atherosclerosis is noted. Common hepatic artery and splenic artery have separate origin s from the aorta. There is no significant stenosis of common hepatic artery, splenic artery, superior mesenteric artery, the renal arteries, or inferior mesenteric artery. There are no pathologically en larged lymph nodes. There is no free intraperitoneal fluid. There is thoracolumbar dextroscoliosis. T here is severe lumbar spondylosis. IMPRESSION: 1. 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 I discussed this result with Dr. Ballard. 2. Mild pulmonary edema. 3. Small pleural effusions. Reviewed, dictated and finalized at location A. NING LEAD IMPRESSION: 1. 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 I discussed this result w dhara Ballard. 2. Mild pulmonary edema. 3. Small pleural effusions.
--- NOTE | ~2024-07-01 | XR_ITS ---
EXAMINATION: XR chest 1V portable DATE: 07/01/2024 03:04 INDICATION: Chest pain. TECHNIQUE: A single frontal view of the chest was obtained. COMPARISON: Chest view 06/19/2023, chest CT 07/01/2024, chest single view 11/11/2022 FINDINGS: There are airspace opacities in the mid and lower lung zones. No pleural effusion or pneumo thorax. Cardiomegaly is noted. There are changes of mitral valve replacement. There is widening of th e superior mediastinum. IMPRESSION: 1. New widening of the superior mediastinum, consistent with aortic injury. 2. Cardiomegaly. 3. Airspace opacities in the mid and lower lung zones, likely atelectasis. Reviewed, dictated and finalized at location A. TAL ADVERTISING SPECIALIST
--- NOTE | ~2024-07-01 | CT_ITS ---
EXAMINATION: CTA chest abdomen pelvis DATE: 07/01/2024 06:11 INDICATION: Chest pain radiating to the back. TECHNIQUE: Computed tomographic angiography (CTA) of the chest, abdomen, and pelvis was performed wit h 100 mL Omnipaque-350 intravenous contrast. Automated exposure control and iterative reconstruction technique were employed. The dose-length product was 457.25 mGy-cm. Maximum intensity projection 3D-r econstructions of the aorta and other arteries were constructed by the technologist on a separate wor kstation. COMPARISON: Chest CT 12/16/2020 FINDINGS: CHEST CTA: There is smooth septal thickening lungs, consistent with mild pulmonary edema. A calcified left lung nodule and calcified left hilar lymph nodes are consistent with old granulomatous disease. There is m ild atelectasis bilaterally. There are small pleural effusions. Cardiomegaly is noted. There are calc ifications of the aortic valve. There are coronary artery calcifications. No pericardial effusion. Th ere is no pulmonary embolus. 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 The mediastinum is enlarged and measures soft tissue attenuation, consistent with extensive hematom a. There is severe thoracic spondylosis. There are old healed right rib fractures. ABDOMEN AND PELVIS CTA: The liver and gallbladder are normal. Calcifications in the spleen are consistent with old granulomat ous disease. Right adrenal gland is normal. There is a chronic 16 mm mass in left adrenal gland, like ly an adenoma. The kidneys are normal. There are no dilated loops of bowel. There is a left inguinal hernia containing nonobstructed small bowel. The appendix is not visualized. Aortic atherosclerosis i s noted. Common hepatic artery and splenic artery have separate origins from the aorta. There is no s ignificant stenosis of common hepatic artery, splenic artery, superior mesenteric artery, the renal a rteries, or inferior mesenteric artery. There are no pathologically enlarged lymph nodes. There is no free intraperitoneal fluid. There is thoracolumbar dextroscoliosis. There is severe lumbar spondylos is. IMPRESSION: 1. 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 2. Mild pulmonary edema. 3. Small pleural effusions. 4. Left inguinal hernia containing nonobstructed small bowel. Reviewed, dictated and finalized at location A. HANDLER IMPRESSION: 1. 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 2. Mild pulmonary edema. 3. Small pleural effusions. 4. Left inguinal hernia containing nonobstructed small bowel.
--- NOTE | 2024-07-01 01:58 | ECG_ITS ---
Test Date: 2024-07-01 01:55:17 Measurements Intervals [place] Rate: 86 P: 0 TX: 0 QRS: 26 QRSD: 161 T: 48 QT: 435 QTc: 521 Interpretive Statements ATRIAL FIBRILLATION RIGHT BUNDLE BRANCH BLOCK BASELINE ARTIFACT- I, II, III, AVR, AVL, AVF, V1-V6 ABNORMAL ECG No previous ECG available for comparison Electronically Signed On 07-01-2024 10:40:56 BRICK WHEELER by Gopi Neal D.O.
[2024-07-01 02:13] LABS: Basophils Percent Auto 0.3 % (0.2-1.2); Eosinophils Percent Auto 0.1 % (0-4.4); Hematocrit 33.4 % (42.0-52.0); Immature Granulocyte Absolute 0.04 K/mm3 (0.00-0.031); Immature Granulocyte Percent A 0.4 % (0-0.5); Lymphocytes Absolute Auto 0.56 K/mm3 (0.9-3.2); Mean Corpuscular HGB Conc 32.9 g/dl (32-36); Mean Corpuscular Hemoglobin 32.4 pg (26-34); Mean Corpuscular Volume 98.2 fl (80-100); Mean Platelet Volume 9.5 fl (7.4-10.4); Monocytes Percent Auto 9.2 % (2.6-8.5); Neutrophils Absolute Auto 9.5 K/mm3 (1.3-6.7); Platelet Count Result 233 k/mm3 (150-375); Red Cell Distribution Width 14.3 % (11.5-14.5); White Blood Count 11.2 K/mm3 (4.5-10.0)
--- OUTSIDE RECORDS SUMMARY | 2024-07-01 02:18 | XMS_ITS | Clinical Summary ---
Author Organization [facility] D Address [address] [place] [id number] Care Team Providers Care Mail Deliverer Name Role Phone Anthony Cooley MD Unavailable [phone] Lane Ledesma MD Primary Care Provider Allergies No known active allergies Medications albuterol HFA (PROVENTIL HFA,VENTOLIN HFA,PROAIR HFA) 90 mcg/actuation inhaler Inhale 100 puffs 4 (four) times a day 2 Active atorvastatin (LIPITOR) 20 mg tablet Take 1 tablet (20 mg total) by mouth nightly 3 Active metoprolol XL (TOPROL-XL) 50 mg extended release tablet Take 1 tablet (50 mg total) by mouth daily 90 tablet 3 4 07/20/19 25 Active lisinopriL (PRINIVIL,ZESTR IL) 20 mg tablet Take 1 tablet (20 mg total) by mouth mechanical engineering draftsperson before breakfast 90 tablet 3 4 Active apixaban (Eliquis) 2.5 mg tablet Take 1 tablet (2.5 mg total) by mouth 2 (two) times a day 180 tablet 3 4 Active apixaban (ELIQUIS) 2.5 mg tablet Take 1 tablet (2.5 mg total) by mouth 2 (two) times a day for 28 days 56 tablet 4 Active Active Problems Problem Noted Date Diagnosed Date 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 Assessment & Plan (03/01/2020 8:09 AM CDT): Echocardiogram one year ago showed normal mitral valve function. No abnormality on exam. Assessment & Plan (03/02/2019 4:07 PM CDT): Doing remarkably well. There is a gradient across the mitral valve, but the valve area is normal, and he has no symptoms referable to his heart. Assessment & Plan (02/14/2018 10:14 AM CDT): Mitral valve is 10 years old. It sounds good on exam. Will assess by echo. Assessment & Plan (02/15/2017 9:57 AM CDT): Bioprosthetic mitral valve is functioning well by exam. His energy level is great. Nonrheumatic aortic valve insufficiency 02/15/20 17 Assessment & Plan (02/28/2021 9:17 AM CDT): Wrkz-ki-rupxqaui aortic insufficiency is longstanding, has not progressed, and is not associated with any left ventricular enlargement or hypokinesis. Assessment & Plan (03/01/2020 8:09 AM CDT): Sclerotic aortic valve with zbaf-fi-zykuzfth aortic insufficiency and normal LV size and contractility. This is not hemodynamically significant. Assessment & Plan (03/02/2019 4:07 PM CDT): Nzoq-bq-wtgcjjmp and hemodynamically well tolerated. Assessment & Plan (02/14/2018 10:13 AM CDT): Moderate when last assessed by echo in 2014. He has no murmur on exam, and no symptoms of valvular disease. Will obtain echo. Assessment & Plan (02/15/2017 9:57 AM CDT): Not heard on exam. Hypertension 02/14/2017 Assessment & Plan (02/28/2021 9:18 AM CDT): Blood pressure is well controlled on hydrochlorothiazide and nifedipine which he should continue. Assessment & Plan (03/01/2020 8:09 AM CDT): Blood pressure is adequately controlled on current regimen. No change was made. Assessment & Plan (03/02/2019 4:07 PM CDT): Blood pressure is adequately controlled on current regimen. No change was made. Assessment & Plan (02/14/2018 10:13 AM CDT): Blood pressure is adequately controlled on current regimen. No change was made. Assessment & Plan (02/15/2017 9:57 AM CDT): Blood pressure is adequately controlled on current regimen. No change was made. Pure hypercholesterolemia 02/14/2017 Assessment & Plan (02/28/2021 9:19 AM CDT): LDL is slightly above target at 107 despite atorvastatin. In the absence of coronary disease I am comfortable with this, especially as his HDL is 63 and triglycerides are normal. Assessment & Plan (03/01/2020 8:10 AM CDT): On chronic lipid lowering therapy with good control. No changes made. Assessment & Plan (03/02/2019 4:07 PM CDT): On chronic lipid lowering therapy with good control. No changes made. Assessment & Plan (02/14/2018 10:13 AM CDT): On chronic lipid lowering therapy with good control. No changes made. Assessment & Plan (02/15/2017 9:57 AM CDT): Lipids are reasonably controlled considering that he does not have coronary disease. Encounters Date Type Department Care Team Description 04/17/2024 12:45 PM LENS SILVERER Office Visit [facility] Medical Group Cardiology [address] [address] Anthony Cooley MD Persistent atrial fibrillation (HCC) (Primary Dx); Other thrombophilia (HCC); S/P MVR (mitral valve replacement) from Last 3 Months Immunizations Name Administration Dates Next Due Influenza, Trivalent, High D ose, Split, Preservative Free, Intramuscular 03/16/2023 Surgical History Surgery Date Site/Laterality Comments TONSILLECTOMY APPENDECTOMY VASECTOMY HEMORRHOID SURGERY SKIN CANCER EXCISION MITRAL VALVE REPLACEMENT 11/11/2006 CATARACT EXTRACTION Left Medical History Medical History Date Comments Hypertension Hyperlipidemia Nonrheumatic aortic valve insufficiency Mitral valve prolapse Pure hypercholesterolemia Hx of mitral valve replacement with tissue graft New onset atrial fibrillation (CMS/HCC) (HCC) Dizziness 06/19/2023 Family History Medical History Relation Name Comments Coronary artery disease Brother Diabetes Brother Coronary artery disease Father No Known Problems Maternal Grandfather No Known Problems Maternal Grandmother No Known Problems Mother No Known Problems Paternal Grandfather No Known Problems Paternal Grandmother Relation Name Status Comments Brother Father Maternal Grandfather Maternal Grandmother Mother Paternal Grandfather Paternal Grandmother Sister Social History Tobacco Use Types Packs/Day Years Used Date Smoking Tobacco: Former Smokeless Tobacco: Former Tobacco Cessation:Counseling Given: Not Answered Alcohol Use Standard Drinks/Week Comments No 0 (1 standard drink = 0.6 oz pur e alcohol) AUDIT-C Answer Date Recorded Frequency of Alcohol Consumption Not on file 01/29/2022 Q2: How many drinks containi ng alcohol do you have on a typical day when you are drinking? Patient does not drink Frequency of Binge Drinking Not on file 12/2021 Sex and Gender Information Value Date Recorded Sex Assigned at Not on file Legal Sex Male 9:03 PM LENS SILVERER Gender Identity Not on file Sexual Orientation Not on file Occupation Industry Job Start Date Job End Date Retired Not on file Not on file Not on file Obstetrics History Last Filed Vital Signs Vital Sign Reading Time Taken Comments Blood Pressure 150/98 04/17/2024 12:55 PM LENS SILVERER Pulse 69 04/17/2024 12:55 PM LENS SILVERER Temperature - - Respiratory Rate - - Oxygen Saturation 96% 04/17/2024 12:55 PM LENS SILVERER Inhaled Oxygen Concentration - - Weight 58.3 kg (128 lb 9.6 oz) 04/17/2024 12:55 PM LENS SILVERER Height 188 cm (6' 2 ) 04/17/2024 12:55 PM LENS SILVERER Body Mass Index 16.51 04/17/2024 12:55 PM LENS SILVERER Plan of Treatment Health Maintenance Due Date Last Done Comments Depression Screening 1938 Fall Risk Assessment 1938 DTaP/Tdap/Td Vaccine (1 - Tdap) 1949 Hepatitis B Screening 1956 Zoster Vaccine (1 of 2) 1988 Pneumococcal vaccine 65+ (1 of 1 - PCV) 10/07/2003 Well Visit 65+ 10/07/2003 Covid-19 Vaccine (2 - season) 01/23/202402/2021 Influenza Vaccine (#1) 2024 03/16/2023 Insurance [facility] MEDIC[facility] GOLD Member Subscriber Plan / Payer (Ef fective 2021-Present) Name:Antoni Cooley Relation to Subscriber:Self Name:Antoni Cooley Payer ID:[id number] ([facility]) Type:AETNA MEDICARE Address: [facility] [id number] [place] [phone] [facility] MEDIC[facility] GOLD Member Subscriber Plan / Payer (Ef fective 2021-Present) Name:Antoni Cooley Relation to Subscriber:Self Name:Antoni Cooley Payer ID:[id number] ([facility]) Type:AETNA MEDICARE Address: [facility] [phone] [place] [phone] Care Teams Mail Deliverer Relationship Specialty Start Date End Date Lane Ledesma MD [address] [place] [address] PCP - General Family Medicine 02/14/18 Anthony Cooley MD [id number] [address] Pens And Pencils Repairer Cardiology 10/13/21
--- OUTSIDE RECORDS SUMMARY | 2024-07-01 02:18 | XMS_ITS | Clinical Summary ---
Author Organization [facility] Address [address] [place] [address] Care Team Providers Care Bobbin Collector Name Role Phone Unavailable Primary Care Provider Unavailabl e Source Comments [facility] [employer],non-owned Affiliates and Associated Physician Practices is amultiple site organization consisting of ambulatory clinics and hospital sitesin [place], [place], [place] and [place]. This disclosure is being madepursuant to the Care Everywhere program and may not contain all information available regarding this patient. Last updated 18.[facility] [employer] Social History Tobacco Use Types Packs/Day Years Used Date Smoking Tobacco: Never Assessed Sex and Gender Information Value Date Recorded Sex Assigned at Not on file Gender Identity Not on file Sexual Orientation Not on file Plan of Treatment Health Maintenance Due Date Last Done Comments DTAP/TDAP/TD VACCINES (1 - Tdap) 1957 PNEUMOCOCCAL VACCINE 50+ (1 of 1 - PCV) 1988 ZOSTER VACCINE (1 of 2) 1988 Respiratory Syncytial Virus (RSV) Vaccine Pt: or over 60 yrs (1 - 1-dose 75+ series) 2013 COVID-19 VACCINE (2023-2 5 season) 2024 INFLUENZA VACCINE (#1) 2024 03/16/2023 DEPRESSION SCREENING 05/24/2024 HEPATITIS B VACCINE Aged Out No longe r eligible based on patient's age to complete this topic HIB VACCINE Aged Out No longer eligi ble based on patient's age to complete this topic HPV VACCINE Aged Out No longer eligi ble based on patient's age to complete this topic MENINGOCOCCAL (Group B) VACCINE Aged Out No longer eligible based on patient's age to complete this topic MENINGOCOCCAL VACCINE Aged Out No blu jey eligible based on patient's age to complete this topic
--- OUTSIDE RECORDS SUMMARY | 2024-07-01 02:18 | XMS_ITS | Referral Summary ---
Author Organization [facility] D Address [address] [place] [id number] Care Team Providers Care Associate Director Finance Name Role Phone Anthony Cooley MD Unavailable [phone] Lane Ledesma MD Primary Care Provider Encounters Date Type Department Care Team Description 04/17/2024 12:45 PM TELEHEALTH NURSE Office Visit [facility] Medical Group Cardiology [address] [place] [address] Anthony Cooley MD Persistent atrial fibrillation (HCC) (Primary Dx); Other thrombophilia (HCC); S/P MVR (mitral valve replacement) from Last 3 Months Allergies No known active allergies Medications albuterol [...] 1 tablet (20 mg total) by mouth management associate before breakfast 90 tablet 3 4 Active [...] 06/25/2023 New onset atrial fibrillation (CMS/HCC) 10/24/19 Hyperlipidemia 10/10/2021 Hypertension 10/10/2021 Mitral valve prolapse [...] Assessment & Plan (02/28/2021 9:17 AM CDT): Fiez-ws-qrpgyepf aortic insufficiency is longstanding, has not progressed, and is not associated with any left ventricular enlargement or hypokinesis. Assessment & Plan (03/01/2020 8:09 AM CDT): Sclerotic aortic valve with xzhm-nu-vudopjvy aortic insufficiency and normal LV size and contractility. This is not hemodynamically significant. Assessment & Plan (03/02/2019 4:07 PM CDT): Eybj-nn-lwdxmeig and hemodynamically well tolerated. Assessment & Plan [...] that he does not have coronary disease. Immunizations Name Administration Dates Next Due Influenza, Trivalent, High D ose, Split, Preservative Free, Intramuscular 03/16/2023 Social History Tobacco Use Types Packs/Day Years [...] on file Legal Sex Male 9:03 PM TELEHEALTH NURSE Gender Identity Not on file Sexual Orientation Not on file Occupation Industry Job Start Date Job End Date Retired Not on file Not on file Not on file Last Filed Vital Signs Vital Sign Reading Time Taken Comments Blood Pressure 150/98 04/17/2024 12:55 PM TELEHEALTH NURSE Pulse 69 04/17/2024 12:55 PM TELEHEALTH NURSE Temperature - - Respiratory Rate - - Oxygen Saturation 96% 04/17/2024 12:55 PM TELEHEALTH NURSE Inhaled Oxygen Concentration - - Weight 58.3 kg (128 lb 9.6 oz) 04/17/2024 12:55 PM TELEHEALTH NURSE Height 188 cm (6' 2 ) 04/17/2024 12:55 PM TELEHEALTH NURSE Body Mass Index 16.51 04/17/2024 12:55 PM TELEHEALTH NURSE Plan of Treatment Not on file Insurance AETNA MEDICARE GOLD AETNA MEDICARE GOLD Care Teams Associate Director Finance Relationship Specialty Start Date End Date Lane Ledesma MD [address] [place] [address] PCP - General Family Medicine 02/14/18 Anthony Cooley MD [address] [address] Package Sorter Cardiology 10/13/21
--- OUTSIDE RECORDS SUMMARY | 2024-07-01 02:18 | XMS_ITS | Patient Health Summary ---
Author Organization [facility] Address [address] [place] [address] Care Team Providers Care Four Slide Operator Name Role Phone Unavailable Primary Care Provider Unavailabl e Note from [facility],non-owned Affiliates and Associated Physician Practices is amultiple site organization consisting of ambulatory clinics and hospital sitesin [place], [place], [place] and [place]. This disclosure is being madepursuant to the Care Everywhere program and may not contain all information available regarding this patient. Last updated 18.[facility] Social History Tobacco Use Types Packs/Day Years Used Date Smoking Tobacco: Never Assessed Sex and Gender Information Value Date Recorded Sex Assigned at Not on file Gender Identity Not on file Sexual Orientation Not on file Procedures * GROSS + MICRO EXAM(Performed 11/11/2006) Results * GROSS + MICRO EXAM (11/11/2006 1:01 PM CDT) Result CASE NUMBER [id number] Comment: ORDERING PHYSICIAN CONI CARRASCO SPECIMEN TYPE Heart Valve Date 11/11/2006 Physician Kiara Carrasco Gross Description The specimen is received in two containers labeled with the patient's name, Antoni Cooley. 1) The first container is labeled posterior leaflet, mitral valve, and consists of an irregular 1.5 x 1.5 cm glistening piece of tatum tissue, grossly consistent with atrial ventricular valve. There is attached cordae tendonae. The cut surfaces reveal areas of thickening up to 0.4 cm. Electronic Component Processor sections of the specimen are submitted in cassettes A through F. 2) The second container is labeled anterior leaflet, mitral valve, and consists of an irregular 3 x 1 cm strip of glistening tatum tissue, grossly consistent with heart valve. Sectioned and all submitted in cassette B. 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 There is no inflammation seen. Section labeled B from the anterior leaflet of the mitral valve shows also myxoid degeneration. JW/na Diagnosis I. Posterior leaflet, mitral valve -- Myxoid degeneration II. Anterior leaflet, mitral valve -- Myxoid degeneration MARISA/na Waiter/Waitress Room Service na Pathologist Earl Coulter M.D. [place]. 11/12/2006 1035 <1> CPT code 72376n4 MISCELLANEOUS SAMPLES / Unknown 11/11/2006 1:01 PM CDT 11/11/2006 1:01 PM CDT Historical Provider LAB - PATHOLOGY/C YTOLOGY ORDERABLES
--- OUTSIDE RECORDS SUMMARY | 2024-07-01 02:18 | XMS_ITS | Referral Summary ---
Author Organization [facility] Address [address] [place] [address] Care Team Providers Care Client Onboarding Analyst Name Role Phone Unavailable Primary Care Provider Unavailabl e Source Comments [facility],non-owned Affiliates and Associated Physician Practices is amultiple site organization consisting of ambulatory clinics and hospital sitesin [place], [place], [place] and [place]. This disclosure is being madepursuant to the Care Everywhere program and may not contain all information available regarding this patient. Last updated 18.[facility] Social History Tobacco Use Types Packs/Day Years Used Date Smoking Tobacco: Never Assessed Sex and Gender Information Value Date Recorded Sex Assigned at Not on file Gender Identity Not on file Sexual Orientation Not on file Plan of Treatment Not on file
--- OUTSIDE RECORDS SUMMARY | 2024-07-01 02:18 | XMS_ITS | Clinical Summary ---
Author Organization [facility] Address [facility] [place] [address] Care Team Providers Care Director College Name Role Phone Olga Garibay NP Primary Care Provider [phone] Amaury Moses MD Unavailable [phone] Carina Delcid MD Unavailable [phone] Allergies No known active allergies Medications ELIQUIS 2.5 MG tablet Take 1 tablet (2.5 mg total) by mouth 2 (two) times daily. 2021 Active docusate sodium (COLACE) 100 MG capsuleIndications:Con stipation, unspecified constipation type Take 1 capsule (100 mg total) by mouth 2 (two) times daily. 10 capsule 2022 Active Additional Information Patient not taking.Reported on 06/23/2024 metoprolol succinate ER (TOPROL-XL) 50 MG 24 hr tablet Take 1 tablet (50 mg total) by mouth daily. Active albuterol sulfate HFA 108 (90 Base) MCG/ACT inhalerIndications:Ast hma, allergic, mild intermittent, uncomplicated (HHS/HCC) INHALE 2 PUFFS BY MOUTH EVERY 6 HOURS NEEDED FOR SHORTNESS OF BREATH 18 g 2023 Active atorvastatin (LIPITOR) 20 MG tabletIndications:Pure hypercholesterolemia TAKE 1 TABLET BY MOUTH NIGHTLY AT BEDTIME 90 tablet 2024 Active lisinopril (PRINIVIL) 20 MG tablet Take 1 tablet (20 mg total) by mouth daily. 2023 Active furosemide (LASIX) 20 MG tabletIndications:Syst olic dysfunction Take 1 tablet (20 mg total) by mouth daily. 90 tablet 2024 Active potassium chloride CR (KLOR-CON M) 20 MEQ tabletIndications:Hypo kalemia Take 1 tablet (20 mEq total) by mouth daily. 90 tablet 2024 Active atorvastatin (LIPITOR) 20 MG tabletIndications:Pure hypercholesterolemia take 1 tablet by mouth nightly at bedtime 90 tablet 1 06/08 Discontinued lisinopril (PRINIVIL) 10 MG tabletIndications:Esse ntial hypertension take 1 tablet by mouth in the morning 90 tablet 06/13 Discontinued( Dose adjustment) furosemide (LASIX) 20 MG tabletIndications:Syst olic dysfunction,Shortness of breath Take 1 tablet (20 mg total) by mouth daily for 3 days. 3 tablet 06/16 Discontinued( Reorder) potassium chloride CR (KLOR-CON M) 20 MEQ tabletIndications:Hypo kalemia Take two tablets on day one then 1 tablet daily for two days. 4 tablet 06/16 Discontinued( Reorder) Active Problems Problem Noted Date Diagnosed Date Atrial fibrillation ([facility]) 02/03/2022 Mitral valve prolapse 07/23/2021 Essential hypertension 02/14/2017 Overview (07/23/2021): Last Assessment & Plan: Blood pressure is well controlled on hydrochlorothiazide and nifedipine which he should continue. Hx of mitral valve replacement with tissue graft 02/14/2017 Overview (07/23/2021): Last Assessment & Plan: Mitral valve continues to function normally. Nonrheumatic aortic valve insufficiency 02/15/20 17 Overview (07/23/2021): Last Assessment & Plan: Nktw-xg-vibjcjci aortic insufficiency is longstanding, has not progressed, and is not associated with any left ventricular enlargement or hypokinesis. Pure hypercholesterolemia 02/14/2017 Overview (07/23/2021): Last Assessment & Plan: LDL is slightly above target at 107 despite atorvastatin. In the absence of coronary disease I am comfortable with this, especially as his HDL is 63 and triglycerides are normal. Encounters Date Type Department Care Team Description 06/23/2024 11:20 AM TARIFF INSPECTOR Office Visit [address] [place] [address] Olga Garibay NP Follow Up (Patient presents for a 1 week follow up systolic dysfunction ) 06/23/2024 Travel 06/16/2024 10:00 AM TARIFF INSPECTOR Office Visit [address] [place] [address] Olga Garibay NP Follow Up (Patient presents for 3 day follow up /Systolic dysfunction //) 06/16/2024 Travel 06/13/2024 10:00 AM TARIFF INSPECTOR Office Visit [address] [place] [address] Olga Garibay NP Hypertension (Patient presents for 6 month follow up HTN) 06/13/[address] [place] [address] Olga Garibay NP Follow Up Call 06/13/2024 Travel 06/06/[address] [place] [address] Olga Garibay NP Appointment Request (AWV scheduled) 05/04/2024 Scan [facility] Scanned, [facility] 04/25/2024 Scan [facility] INFO SRVCS Scanned, [facility] from Last 3 Months Immunizations Name Administration Dates Next Due Arexvy Respiratory Syncytial Virus (RSV, adjuvanted) 0.5 mL, PF 12/22/2023 Fluzone High Dose - >Age 65 (Prefilled Syringe) 03/16/2023,02/02/2022 Hepatitis A/Hepatitis B(Twinrix) 12/22/2023 Influenza (Generic) 03/04/2019 Influenza Adult (Generic) 03/11/2021,,02/19/2018,2016,02/04/2016,03/04/2015 PFIZER COVID-19 (ORIGINAL FORMULATION, PURPLE CAP) mRNA, LNP-S, PF, 30 MCG/0.3 ML DOSE 04/02/2021 Pneumococcal (Pneumovax 23) 07/28/2019 Pneumococcal (Prevnar 13) 09/11/2017 Shingrix 10/29/2017,08/07/2017 Td, Adsorbed, Preservative F ree, Adult Use, Lf Unspecified 05/23/2011 Tdap (Adacel) 07/23/2021 Family History Medical History Relation Comments Diabetes Brother Heart Disease Brother Heart Disease Father No Known Problems Mother Relation Status Comments Brother Father Mother Social History Tobacco Use Types Packs/Day Years Used Date Smoking Tobacco: Former Cigarettes 0.3 5 Passive Smoke Exposure: Past Smokeless Tobacco: Never Tobacco Cessation:Counseling Given: No Comments:The provider can provide you with more information about quitting. Alcohol Use Standard Drinks/Week Comments Not Currently 0 (1 standard drink = 0.6 oz pur e alcohol) AUDIT-C Answer Date Recorded Q1: How often do you have a drink containing alcohol? Never 09/22/2022 Q2: How many drinks containi ng alcohol do you have on a typical day when you are drinking? Patient does not drink Q3: How often do you have si x or more drinks on one occasion? Never 09/22/2022 PHQ-2 Answer Date Recorded Patient Health Questionnaire-2 Score 0 06/16/2024 Sex and Gender Information Value Date Recorded Sex Assigned at Male 06/13/2024 11:17 AM TARIFF INSPECTOR Legal Sex Male 12:15 PM TARIFF INSPECTOR Gender Identity Male 06/16/2024 10:08 AM TARIFF INSPECTOR Sexual Orientation Straight 06/16/2024 10 :08 AM TARIFF INSPECTOR Last Filed Vital Signs Vital Sign Reading Time Taken Comments Blood Pressure 134/90 06/23/2024 11:32 AM TARIFF INSPECTOR Pulse 84 06/23/2024 11:32 AM TARIFF INSPECTOR Temperature 36 C (96.8 F) 06/23/2024 11:11 AM TARIFF INSPECTOR Respiratory Rate 18 06/23/2024 11:11 AM TARIFF INSPECTOR Oxygen Saturation 99% 06/23/2024 11:11 AM TARIFF INSPECTOR Inhaled Oxygen Concentration - - Weight 65.3 kg (144 lb) 06/23/2024 11:11 AM TARIFF INSPECTOR Height 182.9 cm (6') 06/13/2024 10:01 AM TARIFF INSPECTOR Body Mass Index 19.53 06/13/2024 10:01 AM TARIFF INSPECTOR Plan of Treatment Upcoming Encounters Date Type Department Care Team (Late st Contact Info) Description 07/07/2024 10:40 AM TARIFF INSPECTOR Office Visit [facility] - [place] [address] [facility] [address] [place] [address] Olga Garibay, RAFA [address] [place] [address] 07/13/2024 12:15 PM TARIFF INSPECTOR [facility] [address] [place] [id number] Hipolito Webb MD [facility]. [address] [address] Health Maintenance Due Date Last Done Comments Annual Medicare Wellness Visit 09/24/2023 09/22/2022 COVID-19 Vaccine ( season) 2024 03/16/2023, 04/02/2021, 09/20/2020 Influenza Adult (#1) 2024 03/16/2023, 02/02/2022, 03/11/2021, Additional history exists DTaP, Tdap and Td Vaccines (2 - Td or Tdap) 07/24/2031 07/23/2021, 05/23/2011 Zoster Vaccines Completed 10/29/2017, 08/07/2017 Pneumococcal Vaccine: 65+ Years Completed 07/28/2019, 09/11/2017 RSV Immunization or 60+ Years Completed 12/22/2023 PHQ-2 (Physician Tangirnaq) Completed 06/16/2024 Meningococcal B Vaccine Aged Out No l onger eligible based on patient's age to complete this topic Meningococcal Vaccine Aged Out No blu jey eligible based on patient's age to complete this topic RSV Immunizations Under 20 Months Aged Out No longer eligible based on patient's age to complete this topic Procedures Procedure Name Priority Date/Time Associated Diagnosis Comments COLLECTION VENOUS BLOOD VENIPUNCTURE Routine 06/23/2024 12:09 PM TARIFF INSPECTOR Systolic dysfunction Essential hypertension BASIC METABOLIC PANEL Routine 06/23/2024 12:08 PM TARIFF INSPECTOR Essential hypertension Systolic dysfunction COLLECTION VENOUS BLOOD VENIPUNCTURE Routine 06/13/2024 11:16 AM TARIFF INSPECTOR Essential hypertension CBC W/DIFF AUTOMATED Routine 06/13/2024 11:10 AM TARIFF INSPECTOR Systolic dysfunction Shortness of breath BASIC METABOLIC PANEL Routine 06/13/2024 11:10 AM TARIFF INSPECTOR Systolic dysfunction Shortness of breath Weight gain TSH W/REFLEX Routine 06/13/2024 11:10 AM TARIFF INSPECTOR Systolic dysfunction Shortness of breath Essential hypertension Weight gain PRO-BRAIN NATRIURETIC PEPTIDE Routine 06/13/2024 11:10 AM TARIFF INSPECTOR Systolic dysfunction Shortness of breath Weight gain from Last 3 Months Results * (ABNORMAL) BASIC METABOLIC PANEL (06/23/2024 12:08 PM TARIFF INSPECTOR) Only the most recent of2 resultswithin the time period is included. SODIUM S/P/B 145 136 - 145 MMOL/L 06/23/2024 8:07 PM [facility] POTASSIUM S/P/B 3.5 3.5 - 5.1 MMOL/L 06/23/2024 8:07 PM [facility] CHLORIDE S/P/B 105 98 - 107 MMOL/L 06/23/2024 8:07 PM [facility] CO2 29.5 21 - 32 MMOL/L 06/23/2024 8:07 PM [facility] GLUCOSE 88 70 - 99 MG/DL 06/23/2024 8:07 PM [facility] BUN 20(H) 7 - 18 MG/DL 06/23/2024 8:07 PM [facility] CREATININE S/P/B 0.93 0.70 - 1.30 MG/DL 06/23/2024 8:07 PM [facility] CALCIUM S/P/B 8.7 8.4 - 10.5 MG/DL 06/23/2024 8:07 PM [facility] ANION GAP 10.5 5 - 15 MMOL/L 06/23/2024 8:07 PM [facility] Comment:REFERENCE RANGE NOT ESTABLISHED OSMOLALITY (CALC) 302 MOSM/KG 025 8:07 PM [facility] Comment:REFERENCE RANGE NOT ESTABLISHED GFR ESTIMATE 80(L) >90 ML/MIN/1. 73 M2 06/23/2024 8:07 PM [facility] GFR NOTES GFR REFERENCE S: 06/23/2024 8:07 PM [facility] [place] Comment: THE ESTIMATED GFR IS CALCULATED USING THE 2020 CKD-EPI EQUATION. THE FOLLOWING CATEGORIES FOR GRADING RENAL FUNCTION ARE RECOMMENDED BY THE INTERNATIONAL SOCIETY OF NEPHROLOGY (KDIGO 2012 CLINICAL PRACTICE GUIDELINE). G1,NORMAL OR HIGH: >89 ml/min/1.73 m2 G2,MILDLY DECREASED: 60-89 ml/min/1.73 m2 G3A,MILDLY TO MODERATELY DECREASED: 45-59 ml/min/1.73 m2 G3B,MODERATELY TO SEVERELY DECREASED: 30-44 ml/min/1.73 m2 G4,SEVERELY DECREASED: 15-29 ml/min/1.73 m2 G5,KIDNEY FAILURE: <15 ml/min/1.73 m2 06/23/2024 12:0 8 PM TARIFF INSPECTOR us Olga Garibay NP LABORATORY Final Res ult [facility] [place] [address] [place] [address], [place] [phone] * TSH W/REFLEX (06/13/2024 11:10 AM TARIFF INSPECTOR) TSH 2.139 0.358 - 3.740 uIU/ML 06/13/2024 3:10 PM TARIFF INSPECTOR [facility] 06/13/2024 11:1 0 AM TARIFF INSPECTOR Olga Garibay DATA MINER LABORATORY Final Res ult Performing Organization Address City/[facility]/ZIP Co de Phone Number [facility] [address] [place] [address], [place] [phone] * (ABNORMAL) PRO-BRAIN NATRIURETIC PEPTIDE (06/13/2024 11:10 AM TARIFF INSPECTOR) PRO-B TYPE NATRIURETIC PEPTIDE 22,080(H) <450 PG/ML 06/13/2024 2:32 PM TARIFF INSPECTOR [facility] 06/13/2024 11:1 0 AM TARIFF INSPECTOR Olga Garibay DATA MINER LABORATORY Final Res ult Performing Organization Address [facility]/ZIP Co de Phone Number [address] [address], [place] [phone] * (ABNORMAL) CBC W/DIFF AUTOMATED (06/13/2024 11:10 AM TARIFF INSPECTOR) WBC 6.33 4.00 - 10.80 x10'3/uL 06/13/2024 3:03 PM TARIFF INSPECTOR [facility] RBC 3.80(L) 4.50 - 6.10 x10'6/uL 06/13/2024 3:03 PM [facility] HGB 12.1(L) 13.0 - 18.0 G/DL 06/13/2024 3:03 PM [facility] HCT 37.2 37.0 - 52.0 % 06/13/2024 3:03 PM [facility] MCV 97.9 78.0 - 100.0 FL 06/13/2024 3:03 PM [facility] MCH 31.8(H) 27.0 - 31.0 PG 06/13/2024 3:03 PM [facility] MCHC 32.5(L) 33.0 - 36.0 G/DL 06/13/2024 3:03 PM [facility] RDW 14.3 11.5 - 14.5 % 06/13/2024 3:03 PM [facility] PLT 222 150 - 350 x10'3/uL 06/13/2024 3:03 PM [facility] MPV 9.8 7.4 - 10.4 FL 06/13/2024 3:03 PM [facility] DIFFERENTIAL TYPE AUTOMATED DIFFERENTIAL 06/13/2024 3:03 PM [facility] NEUTROPHILS % 80.9 % 06/13/2024 3:03 PM [facility] LYMPHOCYTES % 8.4 % 06/13/2024 3:03 PM [facility] MONOCYTES % 10.0 % 06/13/2024 3:03 PM [facility] EOSINOPHILS % 0.3 % 06/13/2024 3:03 PM [facility] BASOPHILS % 0.2 % 06/13/2024 3:03 PM [facility] IMMATURE GRANS % 0.2 % 06/13/2024 3:03 PM [facility] ABS. NEUTROPHILS 5.13 1.60 - 8.30 x10'3/uL 06/13/2024 3:03 PM [facility] ABS. LYMPHOCYTES 0.53(L) 0.80 - 4.70 x10'3/uL 06/13/2024 3:03 PM [facility] ABS. MONOCYTES 0.63 0.00 - 1.50 x10'3/uL 06/13/2024 3:03 PM TARIFF INSPECTOR [facility] ABS. EOSINOPHILS 0.02 0.00 - 0.40 x10'3/uL 06/13/2024 3:03 PM TARIFF INSPECTOR [facility] ABS. BASOPHILS 0.01 0.00 - 0.20 x10'3/uL 06/13/2024 3:03 PM TARIFF INSPECTOR [facility] ABS. IMMATURE GRANULOCYTES 0.01 0.00 - 0.03 x10'3/uL 06/13/2024 3:03 PM TARIFF INSPECTOR [facility] 06/13/2024 11:1 0 AM TARIFF INSPECTOR Olga Garibay NP LABORATORY Final Res ult [facility] [address] [place] [address], from Last 3 Months Insurance [employer] Care Teams Director College Relationship Specialty Start Date End Date Olga Garibay NP [address] [place] [address] PCP - General NURSE PRACTITIONER 07/09/21 Amaury Moses MD [address] [place] [address] OPHTHALMOLOGY 08/26/21 Carina Delcid MD [facility] [address] [place] [address] Consulting Physician CARDIOVASCULAR DISEASE 10/26/23 Anthony Cooley MD, [facility] Cardiology at [facility] [address] [place] [address] Consulting Physician CARDIOLOGY 09/22/22
[2024-07-01 02:25] LABS: INR 1.3; Prothrombin Time 16.3 Seconds (11.1-14.7)
[2024-07-01 02:26] LABS: Alanine Aminotransferase 25 U/L (6-50); Albumin Level 3.1 g/dL (3.5-5.1); Alkaline Phosphatase 125 U/L (38-126); Anion Gap 7 mmol/L (4-12); Aspartate Amino Transferase 31 U/L (17-59); Bilirubin,Total 1.3 mg/dL (0.2-1.3); Blood Urea Nitrogen 17 mg/dL (9-20); Calcium 8.4 mg/dL (8.4-10.2); Carbon Dioxide 29 mmol/L (22-30); Chloride 102 mmol/L (98-107); Estimated CRCL calculation 72 ml/min; Estimated Glomerular Filt Rate > 60; Glucose 129 mg/dL (65-110); Lipase 52 U/L (23-300); Magnesium 1.7 mg/dL (1.6-2.3); Partial Thromboplastin Time 31.1 Seconds (22.3-36.8); Phosphorus 3.6 mg/dL (2.5-4.5); Potassium 3.7 mmol/L (3.4-5.0); Sodium 138 mmol/L (137-145)
[2024-07-01 02:38] LABS: NT Pro B Type Natriuretic Pept 16000 pg/mL (19.9-100); Troponin I 0.038 ng/mL (0.000-0.034)
[2024-07-01 03:21] LABS: Influenza A QL RT-PCR Negative (Negative); Influenza B QL RT-PCR Negative (Negative); RSV RNA, RT-PCR Negative (Negative); SARS-CoV-2 RNA PCR Negative (Negative)
[2024-07-01 05:23] LABS: Add Urine Microscopic? NO; Appearance Urine Clear (Clear); Bilirubin Urine Negative (Negative); Blood Urine Negative (Negative); Color Urine Yellow (Yellow); Glucose Urine UA Negative (Negative); Ketones Urine Negative (Negative); Leukocyte Esterase Ur Negative LEU/UL (Negative); Nitrate Urine Negative (Negative); Protein Urine Negative (Negative); Specific Grav Ur > 1.045 (1.001-1.035); pH Urine 5.5 (5.0-9.0)
--- NOTE | 2024-07-01 06:09 | ED.GENADULT ---
HPI - General Adult General Chief complaint: Chest Pain Stated complaint: Chest pain Time Seen by Provider: 07/01/24 01:58 History of Present Illness HPI narrative: This is an 83-year-old male presenting ED with chest pain. Patient says that while he was sleeping he developed pain in his back that then spread to his chest. He then came to the hospital for evaluation. Patient notes he has sinus congestion and cough for the last several days. He denies fevers chills shortness of breath abdominal pain nausea vomiting diarrhea. Patient is DNR DNI. Related Data Home Medications ?Medication ?Instructions ?Recorded ?Confirmed ?Last Taken ?Type atorvastatin 20 mg tablet 20 mg PO HS 05/10/19 02/24/23 11/10/22 History Eliquis 2.5 mg PO BID 11/11/22 02/24/23 02/04/23 History albuterol sulfate 90 mcg/actuation 2 puff inhalation BID 02/01/23 02/24/23 Unknown History aerosol inhaler (Proventil HFA) Allergies Allergy/AdvReac Type Severity Reaction Status Date / Time amiodarone Allergy Mild Rash Verified 02/24/23 10:17 [facility] Past Medical History Medical History Chronic hyponatremia Gastroesophageal reflux Hypertension Chronic anticoagulation Paroxysmal atrial flutter Paroxysmal atrial fibrillation Arthritis Hypercholesterolemia Surgical History Surgical History Hx of inguinal hernia repair robotic assisted incarcerated right inguinal hernia repair with mesh on 02/08/23 PDC History of tonsillectomy History of mitral valve replacement with bioprosthetic valve History of cardioversion History of appendectomy Family History Family History Mother Patient's mother is , Onset Age: 72 Family history unknown, Onset Age: 72 Father Patient's father is , Onset Age: 82 Family history unknown, Onset Age: 73 Social History Social History Social History: Surrogate medical decision maker: Danyell Cooley, daughter. Code status: Full code. Smoking packs per day: 1 Smoking cigarettes per day: 20.0 Years smoked: 5 Smoking pack-years: 5.00 Smoking status: Former smoker Tobacco type: cigarettes Second hand tobacco smoke exposure: No Smoking end date: 05/24/66 Alcohol intake: never Substance use: never Substance use type: does not use Lack of Transportation: No Lack of Food: Never True Current Housing: I Have Housing Concerned About Future Housing: No Difficulty Paying Gas/Electric Bills: No Difficulty Paying for Meds: No Currently Unemployed: No Education: Don't Know Difficulty w/ Childcare or Family Care: No Living arrangements: with family Additional living arrangements comments: The patient lives in [place] with his daughter. Spiritual care concerns: No Exam Narrative: APPEARANCE: No apparent distress. Head: atraumatic. EYES: EOMI, NOSE: Atraumatic NECK: Trachea midline RESPIRATORY: No increased rate of breathing bibasilar crackles CARDIOVASCULAR: RRR, pain edema lower extremities, pulses in for 4 extremities ABDOMINAL: Non-distended soft nontender MUSCULOSKELETAl: No obvious deformities NEURO: Alert. Moving 4/4 extremities SKIN:: Warm, dry. Normal color PSYCHIATRIC: Normal affect Course Vital Signs Vital signs: Vital Signs Temperature 97.7 F 07/01/24 01:52 Pulse Rate 92 07/01/24 01:52 Respiratory Rate 19 07/01/24 01:52 Blood Pressure 115/83 07/01/24 01:52 Pulse Oximetry 97 07/01/24 01:52 Oxygen Delivery Room Air 07/01/24 01:52 Temperature 97.7 F 07/01/24 01:52 Pulse Rate 82 07/01/24 05:26 Respiratory Rate 21 H 07/01/24 05:26 Blood Pressure 146/76 H 07/01/24 05:26 Pulse Oximetry 97 07/01/24 05:26 Oxygen Delivery Room Air 07/01/24 02:[address] [facility] Narrative Medical decision making narrative: -Course: This is an 83-year-old male presenting with back pain radiating to his chest. Chest x-ray showed a widened mediastinum. Initial CTA did not fully visualize the aorta although there were findings that were very concerning for dissection. Repeat CTA showed aortic rupture with significant amount of blood in the mediastinum. This was discussed with the patient. The patient has no interest in invasive surgery. The patient would like to be comfort measures only. He says that he would like to pass at home surrounded by his family. Patient has capacity to make his own decisions. Patient has been made comfort measures in a care coordination consult has been placed. We will work on obtaining hospice care. Vital Signs Vital Signs: Vital Signs Temperature 97.7 F 07/01/24 01:52 Pulse Rate 92 07/01/24 01:52 Respiratory Rate 19 07/01/24 01:52 Blood Pressure 115/83 07/01/24 01:52 Pulse Oximetry 97 07/01/24 01:52 Oxygen Delivery Room Air 07/01/24 01:52 Temperature 97.7 F 07/01/24 01:52 Pulse Rate 82 07/01/24 05:26 Respiratory Rate 21 H 07/01/24 05:26 Blood Pressure 146/76 H 07/01/24 05:26 Pulse Oximetry 97 07/01/24 05:26 Oxygen Delivery Room Air 07/01/24 02:03 Lab Data 07/01/24 02:07 07/01/24 02:07 Labs: Lab Results 07/01/24 07/01/24 07/01/24 Range/Units 02:07 02:40 05:16 WBC 11.2 H (4.5-10.0) K/mm3 RBC 3.40 L (4.6-6.20) M/mm3 Hgb 11.0 L (14.0-18.0) g/dL Hct 33.4 L (42.0-52.0) % MCV 98.2 (80-100) fl MCH 32.4 (26-34) pg MCHC 32.9 (32-36) g/dl RDW 14.3 (11.5-14.5) % Plt Count 233 (150-375) k/mm3 MPV 9.5 (7.4-10.4) fl Immature Gran % (Auto) 0.4 (0-0.5) % Neut % (Auto) 85.0 H (45.5-73.1) % Lymph % (Auto) 5.0 L (18.3-44.2) % [place] % (Auto) 9.2 H (2.6-8.5) % Eos % (Auto) 0.1 (0-4.4) % Baso % (Auto) 0.3 (0.2-1.2) % Lymph # (Auto) 0.56 L (0.9-3.2) K/mm3 [place] # (Auto) 1.0 H (0.1-0.6) K/mm3 Eos # (Auto) 0.0 (0-0.3) K/mm3 Baso # (Auto) 0.0 (0.0-0.1) K/mm3 Abs Immat Gran (auto) 0.04 H (0.00-0.031) K/mm3 Absolute Neuts (auto) 9.5 H (1.3-6.7) K/mm3 Absolute Nucleated RBC 0.000 (0.0-0.012) K/mm3 Nucleated RBC % 0.0 (0.0-0.2) % PT 16.3 H (11.1-14.7) Seconds INR 1.3 APTT 31.1 (22.3-36.8) Seconds Sodium 138 (137-145) mmol/L Potassium 3.7 (3.4-5.0) mmol/L Chloride 102 (98-107) mmol/L Carbon Dioxide 29 (22-30) mmol/L Anion Gap 7 (4-12) mmol/L BUN 17 (9-20) mg/dL Creatinine 0.64 L (0.7-1.3) mg/dL Estim Creat Clear Calc 72 ml/min Estimated GFR > 60 (59 - ) Glucose 129 H (65-110) mg/dL Lactic Acid 2.0 (0.7-2.0) mmol/L Calcium 8.4 (8.4-10.2) mg/dL Phosphorus 3.6 (2.5-4.5) mg/dL Magnesium 1.7 (1.6-2.3) mg/dL Total Bilirubin 1.3 (0.2-1.3) mg/dL AST 31 (17-59) U/L ALT 25 (6-50) U/L Alkaline Phosphatase 125 (38-126) U/L Troponin I 0.038 H* (0.000-0.034) ng/mL NT-Pro-B Natriuret Pep 75521 H (19.9-100) pg/mL Total Protein 6.0 L (6.3-8.2) g/dL Albumin 3.1 L (3.5-5.1) g/dL Lipase 52 (23-300) U/L Urine Color Yellow (Yellow) Urine Appearance Clear (Clear) Urine pH 5.5 (5.0-9.0) Ur Specific [place] > 1.045 H (1.001-1.035) Urine Protein Negative (Negative) mg/dL Urine Glucose (UA) Negative (Negative) mg/dL Urine Ketones Negative (Negative) mg/dL Ur Blood (Man) Negative (Negative) Urine Nitrate Negative (Negative) Urine Bilirubin Negative (Negative) Urine Urobilinogen 1.0 (<2.0) mg/dL Leukocyte Esterase Rfl Negative (Negative) TAMARA/UL Influenza A (RT-PCR) Negative (Negative) Influenza B (RT-PCR) Negative (Negative) RSV (RT-PCR) Negative (Negative) SARS-CoV-2 RNA (RT-PCR) Negative (Negative) 07/01/24 Range/Units 05:26 WBC (4.5-10.0) K/mm3 RBC (4.6-6.20) M/mm3 Hgb (14.0-18.0) g/dL Hct (42.0-52.0) % MCV (80-100) fl MCH (26-34) pg MCHC (32-36) g/dl RDW (11.5-14.5) % Plt Count (150-375) k/mm3 MPV (7.4-10.4) fl Immature Gran % (Auto) (0-0.5) % Neut % (Auto) (45.5-73.1) % Lymph % (Auto) (18.3-44.2) % [place] % (Auto) (2.6-8.5) % Eos % (Auto) (0-4.4) % Baso % (Auto) (0.2-1.2) % Lymph # (Auto) (0.9-3.2) K/mm3 [place] # (Auto) (0.1-0.6) K/mm3 Eos # (Auto) (0-0.3) K/mm3 Baso # (Auto) (0.0-0.1) K/mm3 Abs Immat Gran (auto) (0.00-0.031) K/mm3 Absolute Neuts (auto) (1.3-6.7) K/mm3 Absolute Nucleated RBC (0.0-0.012) K/mm3 Nucleated RBC % (0.0-0.2) % PT (11.1-14.7) Seconds INR APTT (22.3-36.8) Seconds Sodium (137-145) mmol/L Potassium (3.4-5.0) mmol/L Chloride (98-107) mmol/L Carbon Dioxide (22-30) mmol/L Anion Gap (4-12) mmol/L BUN (9-20) mg/dL Creatinine (0.7-1.3) mg/dL Estim Creat Clear Calc ml/min Estimated GFR (59 - ) Glucose (65-110) mg/dL Lactic Acid (0.7-2.0) mmol/L Calcium (8.4-10.2) mg/dL Phosphorus (2.5-4.5) mg/dL Magnesium (1.6-2.3) mg/dL Total Bilirubin (0.2-1.3) mg/dL AST (17-59) U/L ALT (6-50) U/L Alkaline Phosphatase (38-126) U/L Troponin I 0.040 H* (0.000-0.034) ng/mL NT-Pro-B Natriuret Pep (19.9-100) pg/mL Total Protein (6.3-8.2) g/dL Albumin (3.5-5.1) g/dL Lipase (23-300) U/L Urine Color (Yellow) Urine Appearance (Clear) Urine pH (5.0-9.0) Ur Specific [place] (1.001-1.035) Urine Protein (Negative) mg/dL Urine Glucose (UA) (Negative) mg/dL Urine Ketones (Negative) mg/dL Ur Blood (Man) (Negative) Urine Nitrate (Negative) Urine Bilirubin (Negative) Urine Urobilinogen (<2.0) mg/dL Leukocyte Esterase Rfl (Negative) TAMARA/UL Influenza A (RT-PCR) (Negative) Influenza B (RT-PCR) (Negative) RSV (RT-PCR) (Negative) SARS-CoV-2 RNA (RT-PCR) (Negative) Discharge Plan Discharge Clinical Impression: Aortic rupture Patient Disposition: Hospice - Home Condition: Stable Patient Language: Dutch Prescriptions: No Action atorvastatin 20 mg tablet 20 mg PO HS guaifenesin [Mucinex] 600 mg tablet extended release 12hr 600 mg PO BID Qty: 20 0RF Eliquis 2.5 mg tablet 2.5 mg PO BID diltiazem HCl 180 mg Capsule,Ext.Rel 24h Degradable 180 mg PO DAILY Qty: 30 0RF lisinopril 10 mg Tablet 10 mg PO QAM Qty: 30 0RF albuterol sulfate [Proventil HFA] 90 mcg/actuation HFA aerosol inhaler 2 puff inhalation BID hydrocodone-acetaminophen 5-325 mg tablet 1 tablet PO Q6H PRN (Reason: pain) Qty: 20 0RF docusate sodium [Colace] 100 mg capsule 100 mg PO BID Qty: 20 0RF amoxicillin-pot clavulanate 875-125 mg tablet 1 tablet PO Q12H Qty: 14 0RF azithromycin 250 mg tablet 250 mg PO DAILY 4 Days Qty: 4 0RF Rx Instructions: start on day 2 of therapy Follow-up/Referrals: Lani,TAJ Lazaro [Primary Care Provider] -
--- NOTE | 2024-07-01 07:20 | PC.NURSE ---
Lulu RN with care coordination at bedside speaking with pt. Pt. is A&Ox4 and able to state what hospice is.
[2024-07-01] MEDS: HYDROcodone/acetaminophen (*CRX) 5-325 MG TABLET 1 TAB PO (07:37)
--- NOTE | 2024-07-01 08:37 | PC.NURSE ---
Hospice going to daughter Danyell's house to set up. Daughter does not want pt. to come home until hospice is set up. Pt. updated and asked if he could go home before hospice is set up. Daughter phoned by this RN and said no, b/c I have work to do. I don't have time to watch him. Daughter states she will be up to the hospital to visit him today and will phone when hospice arrives at her house.Pt. updated.
--- NOTE | 2024-07-01 08:45 | PC.NURSE ---
[place] social work administrator at bedside speaking with pt.
[2024-07-01] MEDS: HYDROmorphone HCL INJ (*CRX) 1 MG/ML SYR 0.5 MG IV PUSH (09:32)
--- NOTE | 2024-07-01 10:00 | PC.NURSE ---
Pt., daughter Lulu Child with Care Coordination and [place] social worker masters at bedside speaking with pt. Pt. to be d/c home with daughter. Pt. dressed by this RN. Pt. able to transport home per private vehicle with family per MD Ballesteros. Family and pt. aware of risk that pt. could during transport and both are ok with risk. They verbalized priority is to get pt. home where he will be most comfortable. Pt. taken out to vehicle via WC. Pt. alert and A&Ox4 at time of d/c.
--- NOTE | 2024-07-01 11:08 | PCCCNOTE ---
Called to the ED for Hospice placement. Pt and his daughter wanted to be on [facility] at their home. Call placed to [facility], information faxed. Lucrecia from [facility] came to the hospital to set up and sign consents. A bed and over bed table is being delivered. Pt daughter wanted to take pt home via their private vehicle. Pt was successfully discharged, [place] aware.
== END 2024-07-01 10:10 | disposition hospice, home (50) ==
PROVIDERS: Emergency Provider Emergency Medicine; PCP Nurse Practitioner
DX: I71.13 Aneurysm of the descending thoracic aorta, ruptured (principal); Z20.822 Contact with and (suspected) exposure to COVID-19; I10 Essential (primary) hypertension; I48.0 Paroxysmal atrial fibrillation; I48.92 Unspecified atrial flutter; E78.00 Pure hypercholesterolemia, unspecified; E87.1 Hypo-osmolality and hyponatremia; M19.90 Unspecified osteoarthritis, unspecified site; K21.9 Gastro-esophageal reflux disease without esophagitis; Z66 Do not resuscitate; Z95.2 Presence of prosthetic heart valve; Z87.891 Personal history of nicotine dependence; K40.90 Unilateral inguinal hernia, without obstruction or gangrene, not specified as recurrent; I51.7 Cardiomegaly
CPT/HCPCS: 36415; 71045; 71275; 74174; 80053; 81003; 83605; 83690; 83735; 83880; 84100; 84484; 85025; 85610; 85730; 87637; 93005; 96365; 99284; A9270; J1171; Q9967